=== PATIENT | male | born 1970 | race Caucasian/White ===

== ENCOUNTER 2021-07-12 17:44 | Inpatient (IN) ==
--- NOTE | 2021-07-12 17:50 | Emergency Department Note ---
HPI General Chief complaint: Altered Mental Status Stated complaint: Confusion Time Seen by Provider: 07/12/21 17:50 Source: patient and family Mode of arrival: ambulatory Limitations: altered mental status History of Present Illness HPI Narrative: 51-year-old male with past medical history of hypertension, diabetes on insulin, and CKD on peritoneal dialysis presenting with altered mental status. Patient's partner notes that he has been more lethargic over the past few days and had a few episodes of vomiting. She left for work around 6 AM this morning and patient seemed normal. When she returned home around 3:30 PM he seemed very lethargic and confused. He had left the water running in the sink and was significantly confused. When they attempted to take him to the hospital he was slamming the door against the wall and started sucking on a dry erase marker. Partner notes he has complained of pain when urinating recently. No report of any falls. Not on anticoagulation. Patient is a poor historian and very confused here. He is A&Ox1 but his baseline is A&Ox3. Patient denies any fall, injury, or pain anywhere. He does appear confused. He is not a smoker, denies drinking or drug use. No report of recent fever, cough, shortness of breath, or chest pain. He has chronic bilateral lower extremity edema which is unchanged. Related Data Home Medications Medication Instructions Recorded Confirmed lancets MISCELLANE 04/26/15 10/22/20 insulin lispro 200 unit/mL (3 mL) 30 unit SUB-Q .TID with meals 01/06/21 subcutaneous pen (Humalog KwikPen U-200 Insulin) insulin glargine U-300 conc 300 140 unit SUB-Q QHS ml 04/03/21 unit/mL (3 mL) subcutaneous pen (Toujeo Max U-300 SoloStar) Previous Rx's Medication Instructions Recorded doxazosin 8 mg tablet 8 mg PO QHS #60 tab 09/04/20 amitriptyline 50 mg tablet 50 mg PO QHS #30 tab 10/27/20 gentamicin 0.1 % topical ointment 1 applic TOPICAL QDAY #30 g 11/21/20 aspirin 81 mg tablet,delayed 81 mg PO QDAY #100 tab 04/03/21 release (Adult Low Dose Aspirin) carvedilol 25 mg tablet 25 mg PO QHS #120 tab 04/03/21 furosemide 80 mg tablet 160 mg PO BID #180 tab 04/03/21 tramadol 50 mg tablet 50 mg PO BID PRN #30 tab 04/17/21 ferric citrate 210 mg iron tablet 420 mg PO .COMPLEX #180 tab 06/26/21 (Auryxia) atorvastatin 80 mg tablet 80 mg PO QDAY #90 tab 06/27/21 cinacalcet 60 mg tablet 60 mg PO QDAY #90 tab 07/09/21 Allergies Allergy/AdvReac Type Severity Reaction Status Date / Time No Known Drug Allergies Allergy Verified 10/15/20 23:16 Review of Systems ROS ROS Narrative: Narrative: Limitations: ROS unobtainable due to patients medical condition Constitutional: Denies fever Cardiovascular: Denies chest pain Respiratory: Denies shortness of breath Gastrointestinal: Reports vomiting; Denies abdominal pain Genitourinary: Reports dysuria Neurological: Denies headache PFSH Narrative Patient History Narrative: Narrative: Medical/Surgical/Family History All Active Problems (Updated 07/13/21 @ 00:41 by Marshall Rucker MD) Edema (Chronic) Diabetes mellitus, type II (Chronic) Essential hypertension, benign (Chronic) Mixed hyperlipidemia (Chronic) CKD (chronic kidney disease), stage IV (Chronic) Hypertensive renal disease (Chronic) Hyperparathyroidism due to renal insufficiency (Chronic) Proteinuria (Chronic) Gout due to renal impairment (Chronic) Anemia due to stage 4 chronic kidney disease (Chronic) CKD stage G5/A3, GFR <15 and albumin creatinine ratio >300 mg/g (Chronic) CKD (chronic kidney disease) stage 5, GFR less than 15 ml/min (Chronic) Accelerated hypertension (Chronic) Nephrotic range proteinuria (Chronic) Anemia due to stage 5 chronic kidney disease treated with darbepoetin (Chronic) Iron deficiency anemia due to chronic blood loss (Acute) ESRD on peritoneal dialysis (Acute) Diabetic peripheral neuropathy (Acute) Peritonitis associated with peritoneal dialysis (Acute) Peritonitis, spontaneous bacterial (Acute) Uncontrolled diabetes mellitus with ESRD (end-stage renal disease) (Acute) Hypoglycemia unawareness associated with type 2 diabetes mellitus (Acute) Leg pain (Acute) Hyperglycemia (Acute) Altered mental status (Acute) Medical History Accelerated hypertension Refractory to beta-blockers high-dose ARB, high-dose alpha-1 antagonist and loop diuretic Did respond to minoxidil but developed side effects and doses above 5 mg twice daily Anemia due to stage 4 chronic kidney disease HgB 8-9 gm/dl so monitoring, low Fe so increased Fe replacement to 65 mg BID BP too high for SANTOS CKD (chronic kidney disease) stage 5, GFR less than 15 ml/min With nephrotic range proteinuria in the setting of diabetes and accelerated hypertension CKD (chronic kidney disease), stage IV DM +/- HTN with nonnephrotic proteinuria CKD stage G5/A3, GFR <15 and albumin creatinine ratio >300 mg/g Seems to be primarily diabetic nephropathy with hypertensive renal disease Decreased proteinuria to <3 gm/day but too little, to late Chose PD so will arrange PD catheter and training to follow Diabetes mellitus, type II Urine Prot/Cr 1.5 but GFR makes ARB therapy controversial Hemoglobin A1c 7.5% in January 2019 Edema Essential hypertension, benign Avoiding ACEi and ARB due to GFR Gout due to renal impairment Uric acid elevated on 150 mg/day allopurinol. GFR <20, lasix and metolizone likely cause Hyperparathyroidism due to renal insufficiency PTH 150-300 range Hypertensive renal disease Goal blood pressure is 140/90 Valsartan, Minoxidil, carvedilol, doxazosin, furosemide and prn metolazone Mixed hyperlipidemia Nephrotic range proteinuria This is gone up from 1.5 g to 4 g per 24 hours in the setting of uncontrolled hypertension He is on maximal dose losartan Proteinuria This is evidence of diabetic nephropathy Surgical History History of umbilical hernia repair (10/13/19) with mesh and laparoscopic PD catheter placement. Family History Mother Malignant neoplasm Father Coronary artery disease Diabetes mellitus Hypertension Sister Diabetes mellitus Social History Smoking Status: Never smoker Alcohol Intake Frequency: holiday/special occasion only Substance Use: does not use Exam Narrative Narrative: Narrative: General Limitations: altered mental status General appearance: Present alert and in no apparent distress Head Head: Present atraumatic and normocephalic Eye Eye: Present normal appearance, PERRL, EOMI and visual tirado intact; Absent scleral icterus, conjunctival injection or nystagmus ENT ENT: Present normal oropharynx and mucous membranes moist Neck Neck: Present normal inspection, full ROM and trachea midline; Absent meningis mus or lymphadenopathy Chest Chest: Present symmetric chest wall rise Respiratory Respiratory: Present normal lung sounds bilaterally; Absent respiratory distress, wheezes, stridor, accessory muscle use or prolonged expiratory phase Cardiovascular Cardiovascular: Present regular rate and normal rhythm; Absent systolic murmur or diastolic murmur Adbominal Abdominal: Present soft; Absent distention, tenderness, guarding, rebound, rigidity, organomegaly or mass Extremities Extremities: Present normal inspection, full ROM and other (1+ bilateral lower e xtremity edema (chronic); no erythema or warmth) Back Back: Present normal inspection; Absent CVA tenderness (R), CVA tenderness (L) or spinous process tenderness Neurological Neurological: Present alert, CN II-XII intact and other (Oriented x1; unable to follow commands to perform [id number] or [id number] testing); Absent motor sensory deficit Expanded Neurological Patient oriented to: Present person; Absent place or time Speech: Present fluid speech; Absent receptive aphasia, expressive aphasia or dysarthria CRANIAL NERVES: EOM function (II, III, IV, ): Normal, facial sensation (V): Normal, facial palsy (VII): Normal, gag reflex (IX): Normal, spinal accessory function (XI): Normal and tongue deviation (XII): Normal Motor strength - LUE: 5/5 Motor strength - RUE: 5/5 Motor strength - LLE: 5/5 Motor strength - RLE: 5/5 UPPER MOTOR NEURON EXAM: remington neglect: Normal and pronator drift: Normal SENSORY EXAM UPPER EXTREMITY: Normal: light touch SENSORY EXAM LOWER EXTREMITY: Normal: light touch Coma Scale Eye Opening: Spontaneous Coma Scale Motor Response: Obeys Commands Coma Scale Verbal Response: Confused Coma Scale Total: 14 Psychiatric Psychiatric: Present other (Confused but redirectable, pleasant) Skin Skin: Present warm (WNL) and dry Course Consultations Consultation #1: Dr. Chapman, hospitalist Time: 00:39 Vital Signs Vital signs: Vital Signs Temperature 98.1 F 07/12/21 17:45 Pulse Rate 93 H 07/12/21 17:45 Respiratory Rate 17 07/12/21 17:45 Blood Pressure 210/104 07/12/21 17:45 Pulse Oximetry (%) 96 07/12/21 17:45 Temperature 97 F 07/13/21 02:42 Pulse Rate 57 L 07/13/21 02:42 Respiratory Rate 20 07/13/21 02:42 Blood Pressure 164/94 07/13/21 02:42 Pulse Oximetry (%) 94 07/13/21 02:43 MDM MDM Narrative Medical decision making narrative: 51-year-old male presenting with altered mental status. No focal neurologic deficits noted on exam however patient is too confused to complete all portions of the neurologic exam. He is hypertensive on initial evaluation. He is outside the window for acute CVA treatment initiation. Will obtain labs, CT brain, chest x-ray, UA, and UDS to further evaluate. 0130: Labs notable for hyperglycemia to 882 with a slightly elevated anion gap however his pH and lactate are normal. Insulin bolus given and insulin drip started. Normal saline bolus given. Beta hydroxybutyrate is mildly elevated at 0.49. Creatinine is 9.4. TSH, ammonia, and alcohol levels are normal. CT brain shows evidence of old infarcts but no acute infarcts or hemorrhage. Chest x-ray with no acute findings. UA may be consistent with infection, blood cultures ordered and IV Rocephin given. Patient remained confused and agitated in the ED, requiring IM Haldol, IV Ativan, and IM Zyprexa in order to calm him enough for imaging studies. He was also hypertensive and tachycardic, IV and p.o. Lopressor given with improvement. Will admit for hyperglycemia, altered mental status, and UTI. Peritoneal fluid Gram stain, culture, and cell count ordered. Patient discussed with Dr. Chapman who will admit. Lab Data Lab results reviewed: Yes I reviewed the patient's lab results. Result diagrams: 07/12/21 17:52 07/12/21 17:52 Labs: Lab Results 07/12/21 07/12/21 07/12/21 Range/Units 17:52 17:52 17:52 WBC 6.3 (4.5-11.0) K/mcL RBC 3.13 L (4.63-6.08) M/mcL Hgb 9.6 L (13.7-17.5) g/dL Hct 28.8 L (40.1-51.0) % MCV 92.0 (80.0-100.0) fL MCH 30.7 (26.0-34.0) pg MCHC 33.3 (31.0-36.0) g/dL RDW 13.3 (11.5-14.5) % Plt Count 187 (140-440) K/mcL MPV 10.6 H (7.4-10.4) fL Neut % (Auto) 72.9 (38.0-78.0) % Lymph % (Auto) 15.9 (15.5-49.0) % [place] % (Auto) 6.0 (1.0-12.0) % Eos % (Auto) 4.1 (0.0-7.0) % Baso % (Auto) 1.1 (0.0-2.0) % Lymph # (Auto) 1.00 L (1.50-4.80) K/mcL [place] # (Auto) 0.38 (0.10-0.90) K/mcL Eos # (Auto) 0.26 (0.00-0.70) K/mcL Baso # (Auto) 0.07 (0.00-0.30) K/mcL Absolute Neutrophils 4.59 (1.80-8.00) K/mcL Sodium 125 L (133-145) mmol/L Potassium 4.1 (3.3-5.1) mmol/L Chloride 85 L (96-108) mmol/L Carbon Dioxide 23 (22-30) mmol/L Anion Gap 17.0 H (8.0-16.0) BUN 73 H (6-20) mg/dL Creatinine 9.4 H* (0.7-1.2) mg/dL GFR Calculation 6 Glucose 882 H* (70-105) mg/dL Calcium 8.7 (8.6-10.4) mg/dL Magnesium (1.6-2.5) mg/dL Total Bilirubin 0.2 (0.1-1.0) mg/dL AST 13 (<40) U/L ALT 18 (<40) U/L Alkaline Phosphatase 134 H (39-117) U/L Ammonia (16-60) umol/L Total Protein 6.5 (5.9-8.4) gm/dL Albumin 3.2 (3.2-5.2) gm/dL Globulin 3.3 (2.2-3.7) gm/dL Albumin/Globulin Ratio 1.0 (1.0-2.3) Lipase 145 H (7-60) U/L Beta-Hydroxybutyrate 0.49 H (<0.27) mmol/L TSH (0.27-5.01) uIU/mL Urine Color Urine Appearance (Clear) Urine pH (5.0-9.0) Ur Specific [place] (1.000-1.035) Urine Protein (Negative) mg/dL Urine Glucose (UA) (Negative) mg/dL Urine Ketones (Negative) mg/dL Urine Occult Blood (Negative) arslan/mcL Urine Nitrate (Negative) Urine Bilirubin (Negative) mg/dL Urine Urobilinogen mg/dL Ur Leukocyte Esterase (Negative) /uL Urine RBC (0-3) /hpf Urine WBC (0-4) /hpf Ur Squamous Epith Cells (0-4) /hpf Urine Bacteria (0) /hpf Hyaline Casts (0-2) /lph Ur Culture Indicated? Urine Opiates Screen Ur Opiates Confirm Ur Oxycodone Screen Urine Methadone Screen Ur Methadone Confirm Ur Barbiturates Screen Ur Barbiturate Confirm Ur Phencyclidine Scrn Urine PCP Confirm Ur Amphetamines Screen U Amphetamines Confirm U Benzodiazepines Scrn U Benzodiazepine Confm Urine Cocaine Screen Urine Cocaine Confirm U Cannabinoids Confirm U Marijuana (THC) Screen Ethyl Alcohol < 0.010 (<0.010) gm/dL 07/12/21 07/12/21 07/12/21 Range/Units 17:52 17:52 19:19 WBC (4.5-11.0) K/mcL RBC (4.63-6.08) M/mcL Hgb (13.7-17.5) g/dL Hct (40.1-51.0) % MCV (80.0-100.0) fL MCH (26.0-34.0) pg MCHC (31.0-36.0) g/dL RDW (11.5-14.5) % Plt Count (140-440) K/mcL MPV (7.4-10.4) fL Neut % (Auto) (38.0-78.0) % Lymph % (Auto) (15.5-49.0) % [place] % (Auto) (1.0-12.0) % Eos % (Auto) (0.0-7.0) % Baso % (Auto) (0.0-2.0) % Lymph # (Auto) (1.50-4.80) K/mcL [place] # (Auto) (0.10-0.90) K/mcL Eos # (Auto) (0.00-0.70) K/mcL Baso # (Auto) (0.00-0.30) K/mcL Absolute Neutrophils (1.80-8.00) K/mcL Sodium (133-145) mmol/L Potassium (3.3-5.1) mmol/L Chloride (96-108) mmol/L Carbon Dioxide (22-30) mmol/L Anion Gap (8.0-16.0) BUN (6-20) mg/dL Creatinine (0.7-1.2) mg/dL GFR Calculation Glucose (70-105) mg/dL Calcium (8.6-10.4) mg/dL Magnesium 2.5 (1.6-2.5) mg/dL Total Bilirubin (0.1-1.0) mg/dL AST (<40) U/L ALT (<40) U/L Alkaline Phosphatase (39-117) U/L Ammonia 20 (16-60) umol/L Total Protein (5.9-8.4) gm/dL Albumin (3.2-5.2) gm/dL Globulin (2.2-3.7) gm/dL Albumin/Globulin Ratio (1.0-2.3) Lipase (7-60) U/L Beta-Hydroxybutyrate (<0.27) mmol/L TSH 3.56 (0.27-5.01) uIU/mL Urine Color Urine Appearance (Clear) Urine pH (5.0-9.0) Ur Specific [place] (1.000-1.035) Urine Protein (Negative) mg/dL Urine Glucose (UA) (Negative) mg/dL Urine Ketones (Negative) mg/dL Urine Occult Blood (Negative) arslan/mcL Urine Nitrate (Negative) Urine Bilirubin (Negative) mg/dL Urine Urobilinogen mg/dL Ur Leukocyte Esterase (Negative) /uL Urine RBC (0-3) /hpf Urine WBC (0-4) /hpf Ur Squamous Epith Cells (0-4) /hpf Urine Bacteria (0) /hpf Hyaline Casts (0-2) /lph Ur Culture Indicated? Urine Opiates Screen Ur Opiates Confirm Ur Oxycodone Screen Urine Methadone Screen Ur Methadone Confirm Ur Barbiturates Screen Ur Barbiturate Confirm Ur Phencyclidine Scrn Urine PCP Confirm Ur Amphetamines Screen U Amphetamines Confirm U Benzodiazepines Scrn U Benzodiazepine Confm Urine Cocaine Screen Urine Cocaine Confirm U Cannabinoids Confirm U Marijuana (THC) Screen Ethyl Alcohol (<0.010) gm/dL 07/12/21 07/12/21 Range/Units 20:58 20:58 WBC (4.5-11.0) K/mcL RBC (4.63-6.08) M/mcL Hgb (13.7-17.5) g/dL Hct (40.1-51.0) % MCV (80.0-100.0) fL MCH (26.0-34.0) pg MCHC (31.0-36.0) g/dL RDW (11.5-14.5) % Plt Count (140-440) K/mcL MPV (7.4-10.4) fL Neut % (Auto) (38.0-78.0) % Lymph % (Auto) (15.5-49.0) % [place] % (Auto) (1.0-12.0) % Eos % (Auto) (0.0-7.0) % Baso % (Auto) (0.0-2.0) % Lymph # (Auto) (1.50-4.80) K/mcL [place] # (Auto) (0.10-0.90) K/mcL Eos # (Auto) (0.00-0.70) K/mcL Baso # (Auto) (0.00-0.30) K/mcL Absolute Neutrophils (1.80-8.00) K/mcL Sodium (133-145) mmol/L Potassium (3.3-5.1) mmol/L Chloride (96-108) mmol/L Carbon Dioxide (22-30) mmol/L Anion Gap (8.0-16.0) BUN (6-20) mg/dL Creatinine (0.7-1.2) mg/dL GFR Calculation Glucose (70-105) mg/dL Calcium (8.6-10.4) mg/dL Magnesium (1.6-2.5) mg/dL Total Bilirubin (0.1-1.0) mg/dL AST (<40) U/L ALT (<40) U/L Alkaline Phosphatase (39-117) U/L Ammonia (16-60) umol/L Total Protein (5.9-8.4) gm/dL Albumin (3.2-5.2) gm/dL Globulin (2.2-3.7) gm/dL Albumin/Globulin Ratio (1.0-2.3) Lipase (7-60) U/L Beta-Hydroxybutyrate (<0.27) mmol/L TSH (0.27-5.01) uIU/mL Urine Color Yellow Urine Appearance Clear (Clear) Urine pH 6.5 (5.0-9.0) Ur Specific [place] 1.015 (1.000-1.035) Urine Protein >=300 mg/dl A (Negative) mg/dL Urine Glucose (UA) 500 mg/dl A (Negative) mg/dL Urine Ketones Negative (Negative) mg/dL Urine Occult Blood Moderate A (Negative) arslan/mcL Urine Nitrate Negative (Negative) Urine Bilirubin Negative (Negative) mg/dL Urine Urobilinogen Normal mg/dL Ur Leukocyte Esterase Negative (Negative) /uL Urine RBC 2 (0-3) /hpf Urine WBC 3 (0-4) /hpf Ur Squamous Epith Cells 1 (0-4) /hpf Urine Bacteria Few A (0) /hpf Hyaline Casts 9 H (0-2) /lph Ur Culture Indicated? Yes Urine Opiates Screen None detected Ur Opiates Confirm TNP Ur Oxycodone Screen None detected Urine Methadone Screen None detected Ur Methadone Confirm TNP Ur Barbiturates Screen None detected Ur Barbiturate Confirm TNP Ur Phencyclidine Scrn None detected Urine PCP Confirm TNP Ur Amphetamines Screen None detected U Amphetamines Confirm TNP U Benzodiazepines Scrn None detected U Benzodiazepine Confm TNP Urine Cocaine Screen None detected Urine Cocaine Confirm TNP U Cannabinoids Confirm TNP U Marijuana (THC) Screen None detected Ethyl Alcohol (<0.010) gm/dL Radiology Data Radiology results reviewed: Yes I reviewed the patient's radiology results. Radiology results narrative: CT brain without contrast: No acute hemorrhage or ischemia. Small chronic CVAs noted, per outside radiology read. Chest x-ray: No acute abnormality, per my interpretation. EKG Data EKG #1: EKG attestation: Yes I reviewed and interpreted this EKG. and Yes There are no EKG findings of acute coronary syndrome EKG results narrative: Sinus tachycardia at [address] elevation or depression. QT is mildly prolonged. Interpretation: no acute changes Discharge Plan Patient/Caregiver Discharge Instructions Pt seen by [facility]ER/PA only: No Clinical Impression: Hyperglycemia, Altered mental status Patient Disposition: Xfer As Inpt ([facility]) Condition: Fair Discharge Date/Time: 07/13/21 02:32
[2021-07-12] MEDS ORDERED: 0.9 % SODIUM CHLORIDE 1,000 ML IV ONE (19:01)
[2021-07-12 19:12] LABS: Basophils # (Auto) 0.07 K/mcL (0.00-0.30); Basophils % (Auto) 1.1 % (0.0-2.0); Eosinophils # (Auto) 0.26 K/mcL (0.00-0.70); Eosinophils % (Auto) 4.1 % (0.0-7.0); Hematocrit 28.8 % (40.1-51.0); Hemoglobin 9.6 g/dL (13.7-17.5); Lymphocytes % (Auto) 15.9 % (15.5-49.0); Mean Corpuscular HGB Conc 33.3 g/dL (31.0-36.0); Mean Platelet Volume 10.6 fL (7.4-10.4); Monocytes # (Auto) 0.38 K/mcL (0.10-0.90); Neutrophils % (Auto) 72.9 % (38.0-78.0); Platelet Count 187 K/mcL (140-440); RBC 3.13 M/mcL (4.63-6.08); Red Cell Distribution Width 13.3 % (11.5-14.5); WBC 6.3 K/mcL (4.5-11.0)
[2021-07-12] MEDS ORDERED: HALOPERIDOL LACTATE 5 MG/ML VIAL IM ONE ×2 (19:32→21:08)
[2021-07-12 19:38] LABS: Beta Hydroxybutyrate 0.49 mmol/L (<0.27)
[2021-07-12 19:55] LABS: ALT/SGPT 18 U/L (<40); AST/SGOT 13 U/L (<40); Albumin 3.2 gm/dL (3.2-5.2); Alkaline Phosphatase 134 U/L (39-117); Bilirubin,Total 0.2 mg/dL (0.1-1.0); Blood Urea Nitrogen 73 mg/dL (6-20); Calcium 8.7 mg/dL (8.6-10.4); Carbon Dioxide 23 mmol/L (22-30); Chloride 85 mmol/L (96-108); Globulin 3.3 gm/dL (2.2-3.7); Glomerular Filtration Rate 6; Glucose 882 mg/dL (70-105)
[2021-07-12 19:56] LABS: Alcohol, Blood < 10.0 mg/dL; Alcohol,Blood < 0.010 gm/dL (<0.010)
[2021-07-12] MEDS ORDERED: INSULIN REGULAR, HUMAN 1 UNIT/0.01 ML UNIT IV ONE (20:07)
[2021-07-12] MEDS ORDERED: INSULIN REGULAR, HUMAN 50 UNIT in 0.9 % SODIUM CHLORIDE 99.5 ML IV SCH (20:15)
[2021-07-12] MEDS ORDERED: LORazepam 2 MG/ML VIAL IV ONE ×2 (20:22→20:46)
[2021-07-12] MEDS ORDERED: INSULIN REGULAR, HUMAN 50 UNIT in 0.9 % SODIUM CHLORIDE 99.5 ML IV ONE (20:34)
[2021-07-12] MEDS ORDERED: OLANZapine 10 MG VIAL IM SCH (22:00)
[2021-07-12 22:15] LABS: Appearance,Urine Clear (Clear); Bacteria,Urine FEW /hpf (0); Bilirubin,Urine Negative (Negative); Color,Urine Yellow; Culture Indicated,Urine Yes; Ketones,Urine Negative (Negative); Leukocyte Esterase,Urine Negative /uL (Negative); Nitrate,Urine Negative (Negative); PH,Urine 6.5 (5.0-9.0); Protein,Urine >=300 mg/dL mg/dL (Negative); Specific Gravity,Urine 1.015 (1.000-1.035); Urine Blood Moderate ery/mcL (Negative); Urine Hyaline Cast 9 /lph (0-2); Urine RBC 2 /hpf (0-3); Urine Squamous Epithelial Cell 1 /hpf (0-4); Urine WBC 3 /hpf (0-4); Urobilinogen,Urine Normal
[2021-07-12 22:17] LABS: Amphetamine Screen,Urine None detected; Barbiturate Screen,Urine None detected; Benzodiazepines Screen,Urine None detected; Cannabinoid Screen,Urine None detected; Cocaine Screen,Urine None detected; Opiate Screen,Urine None detected; Oxycodone, Urine Screen None detected; Phencyclidine Screen,Urine None detected
[2021-07-12] MEDS ORDERED: cefTRIAXone 1 GM VIAL IV ONE (22:59)
[2021-07-12] MEDS ORDERED: METOPROLOL TARTRATE 5 MG/5 ML VIAL IV ONE (23:34)
[2021-07-13] MEDS ORDERED: ONDANSETRON 4 MG/2 ML VIAL IV PRN ×2 (01:48→06:55)
[2021-07-13] MEDS ORDERED: cefTRIAXone 2 GM in DEXTROSE 5% IN WATER 50 ML IV SCH (02:00)
--- NOTE | 2021-07-13 05:08 | XRay Report ---
CLINICAL INFORMATION: Acute mental status change COMPARISON: None. TECHNIQUE: PA and Lateral views FINDINGS: Poor inspiratory result accentuates the heart, mediastinum and pulmonary vasculature. The lungs are clear. There are no effusions. The bones and soft tissues are within normal limits. IMPRESSION: Normal chest. Suboptimal inspiratory result Interpreted and Authenticated by: Tejinder Ruiz 07/13/21
--- NOTE | 2021-07-13 05:19 | Cat Scan Report ---
CLINICAL INFORMATION: History dialysis for chronic renal failure. Acute mental status change COMPARISON: None. TECHNIQUE: 2.5 mm helical slices were obtained in the skull base to vertex. Following reconstruction, axial reformatted images were reviewed at bone and parenchymal windows. The exam was performed using radiation dose optimization techniques including, but not limited to, automated exposure control, adjustment of the mA and/or kV according to patient size and use of iterative reconstruction technique. FINDINGS: The ventricles, sulci, fissures, and cisterns are symmetrically enlarged compatible with moderate age-related atrophy. No extra-axial fluid collections are identified. Moderate patchy chronic ischemic changes, in the deep cerebral white matter, are expected for age. Multiple chronic infarcts are described in the impression. There is no hemorrhage, mass effect, or edema. Bone windows show fluid within all of the right mastoid air cells with sclerotic thickening of the bones about chronic right mastoiditis. IMPRESSION: Moderate atrophy and chronic ischemic changes in the deep cerebral white matter-much greater than expected for patient's age of 51. Two moderate old cortical-based infarcts in the left frontal lobe near vertex, small remote cortical-based infarct right frontal lobe near vertex, moderate old cortical based infarct inferior left frontal lobe, small old cortical-based infarct left anterior temporal lobe 10 mm remote lacunar infarct deep right frontal white matter, 5 mm old lacunar infarct left lentiform nucleus and moderate old infarct inferior left cerebellum. No intracerebral hemorrhage or other acute finding Chronic right mastoiditis Suggest: CT cervical carotid arteriogram and CT cerebral angiogram Interpreted and Authenticated by: Tejinder Ruiz 07/13/21
[2021-07-13] MEDS ORDERED: 0.9 % SODIUM CHLORIDE 10 ML SYRINGE IV SCH (06:00)
[2021-07-13] MEDS ORDERED: traMADol (PP) 50 MG TABLET (#4) PO PRN (06:39)
[2021-07-13] MEDS ORDERED: IPRATROPIUM/ALBUTEROL 3 ML AMPUL.NEB NEB PRN (06:55)
[2021-07-13] MEDS ORDERED: DEXTROSE 50% 50 ML VIAL IV PRN (06:55)
[2021-07-13] MEDS ORDERED: DEXTROSE 31 GM ORAL.SUSP PO PRN (06:55)
[2021-07-13] MEDS ORDERED: ACETAMINOPHEN 325 MG TABLET PO PRN (06:55)
[2021-07-13] MEDS ORDERED: OLANZapine 5 MG TABLET PO ONE (07:01)
[2021-07-13] MEDS ORDERED: LORazepam 2 MG/ML VIAL IV PRN (07:01)
--- NOTE | 2021-07-13 07:06 | Internal Med History&Physical ---
HPI History of Present Illness Patient information: Note initiated : 07/13/21 at 7:03 am Service Date, if different from initiated Date: [] Patient: Herman Hall a 51 y/o M admitted on 07/13/21 for Confusion. Chief Complaint: [confusion] Chief complaint: confusion History of present illness: Mr. Hall is a 51 year old M history of end-stage renal disease on peritoneal dialysis, type 2 diabetes mellitus insulin-dependent, essential hypertension's, mixed dyslipidemia, presenting with 1 day history of acute onset confusions. There was no prior similar episode. The following history is limited by patient's clinical situations and most of it is obtained from at the bedside. Patient was in his usual clinical status test until yesterday when his came home from work found out he was confused, lethargic, not acting like himself, the house is in chaos, and barely answer any questions. There was no prior similar episode according to the . Vital signs at ED presentation significant for tachycardia and tachypnea with heart rate and rate of breathing in the 1 teens and mid 20s, respectively. Labs significant for lack of leukocytosis with WBC 6.3. Blood glucose 882, anion gap was 17, serum bicarb of 23 so it does not fit the diabetic ketoacidosis or HHS criteria. Negative nitrate negative leukocyte esterase from the urinalysis. Chest x-ray unremarkable. Head CT no sign of acute intracranial pathologies. Current working diagnosis is a spontaneous bacterial peritonitis. Insulin drip was briefly provided in the ED which was started after repeat blood sugar check in the 200s range. Review of Systems ROS unobtainable: due to mental status PFSH PFSH All Active Problems (Updated 07/13/21 @ 07:14 by Rigo Chapman MD) SBP (spontaneous bacterial peritonitis) (Acute) Delirium (Acute) Mixed dyslipidemia (Acute) Anemia in end-stage renal disease (Acute) Obesity (BMI 30-39.9) (Acute) Hypertension due to end stage renal disease on dialysis (Acute) Type 2 diabetes mellitus with end-stage renal disease (Acute) Edema (Chronic) Diabetes mellitus, type II (Chronic) Essential hypertension, benign (Chronic) Mixed hyperlipidemia (Chronic) CKD (chronic kidney disease), stage IV (Chronic) Hypertensive renal disease (Chronic) Hyperparathyroidism due to renal insufficiency (Chronic) Proteinuria (Chronic) Gout due to renal impairment (Chronic) Anemia due to stage 4 chronic kidney disease (Chronic) CKD stage G5/A3, GFR <15 and albumin creatinine ratio >300 mg/g (Chronic) CKD (chronic kidney disease) stage 5, GFR less than 15 ml/min (Chronic) Accelerated hypertension (Chronic) Nephrotic range proteinuria (Chronic) Anemia due to stage 5 chronic kidney disease treated with darbepoetin (Chronic) Iron deficiency anemia due to chronic blood loss (Acute) ESRD on peritoneal dialysis (Acute) Diabetic peripheral neuropathy (Acute) Peritonitis associated with peritoneal dialysis (Acute) Peritonitis, spontaneous bacterial (Acute) Uncontrolled diabetes mellitus with ESRD (end-stage renal disease) (Acute) Hypoglycemia unawareness associated with type 2 diabetes mellitus (Acute) Leg pain (Acute) Hyperglycemia (Acute) Altered mental status (Acute) Medical History Accelerated hypertension Refractory to beta-blockers high-dose ARB, high-dose alpha-1 antagonist and loop diuretic Did respond to minoxidil but developed side effects and doses above 5 mg twice daily Anemia due to stage 4 chronic kidney disease HgB 8-9 gm/dl so monitoring, low Fe so increased Fe replacement to 65 mg BID BP too high for SANTOS CKD (chronic kidney disease) stage 5, GFR less than 15 ml/min With nephrotic range proteinuria in the setting of diabetes and accelerated hypertension CKD (chronic kidney disease), stage IV DM +/- HTN with nonnephrotic proteinuria CKD stage G5/A3, GFR <15 and albumin creatinine ratio >300 mg/g Seems to be primarily diabetic nephropathy with hypertensive renal disease Decreased proteinuria to <3 gm/day but too little, to late Chose PD so will arrange PD catheter and training to follow Diabetes mellitus, type II Urine Prot/Cr 1.5 but GFR makes ARB therapy controversial Hemoglobin A1c 7.5% in January 2019 Edema Essential hypertension, benign Avoiding ACEi and ARB due to GFR Gout due to renal impairment Uric acid elevated on 150 mg/day allopurinol. GFR <20, lasix and metolizone likely cause Hyperparathyroidism due to renal insufficiency PTH 150-300 range Hypertensive renal disease Goal blood pressure is 140/90 Valsartan, Minoxidil, carvedilol, doxazosin, furosemide and prn metolazone Mixed hyperlipidemia Nephrotic range proteinuria This is gone up from 1.5 g to 4 g per 24 hours in the setting of uncontrolled hypertension He is on maximal dose losartan Proteinuria This is evidence of diabetic nephropathy Surgical History History of umbilical hernia repair (10/13/19) with mesh and laparoscopic PD catheter placement. Family History Mother Malignant neoplasm Father Coronary artery disease Diabetes mellitus Hypertension Sister Diabetes mellitus Social History (Updated 09/28/19 @ 12:39 by Coleman Butts MD) marital status: occupational status: employed physical activity: none alcohol intake frequency: holiday/special occasion only substance use type: does not use MEDS/ALLERGIES Home Medications and Allergies Home Medications Medication Instructions Recorded Confirmed Type lancets MISCELLANE 04/26/15 10/22/20 History doxazosin 8 mg tablet 8 mg PO QHS #60 tab 09/04/20 10/22/20 Rx amitriptyline 50 mg tablet 50 mg PO QHS #30 tab 10/27/20 Rx gentamicin 0.1 % topical ointment 1 applic TOPICAL QDAY #30 g 11/21/20 Rx insulin lispro 200 unit/mL (3 mL) 30 unit SUB-Q .TID with meals 01/06/21 History subcutaneous pen (Humalog KwikPen U-200 Insulin) aspirin 81 mg tablet,delayed 81 mg PO QDAY #100 tab 04/03/21 Rx release (Adult Low Dose Aspirin) carvedilol 25 mg tablet 25 mg PO QHS #120 tab 04/03/21 Rx furosemide 80 mg tablet 160 mg PO BID #180 tab 04/03/21 Rx insulin glargine U-300 conc 300 140 unit SUB-Q QHS ml 04/03/21 History unit/mL (3 mL) subcutaneous pen (Toujeo Max U-300 SoloStar) tramadol 50 mg tablet 50 mg PO BID PRN #30 tab 04/17/21 Rx ferric citrate 210 mg iron tablet 420 mg PO .COMPLEX #180 tab 06/26/21 Rx (Auryxia) atorvastatin 80 mg tablet 80 mg PO QDAY #90 tab 06/27/21 Rx cinacalcet 60 mg tablet 60 mg PO QDAY #90 tab 07/09/21 07/09/21 Rx Allergies Allergy/AdvReac Type Severity Reaction Status Date / Time No Known Drug Allergies Allergy Verified 10/15/20 23:16 EXAM Constitutional Vitals: Temp Pulse Resp BP Pulse Ox 36.1 C 113 H 24 H 185/94 96 07/13/21 04:00 07/13/21 04:00 07/13/21 04:00 07/13/21 04:00 07/13/21 04:00 General appearance: disheveled, no acute distress and obese; no cooperative Head Head exam: Present atraumatic and normocephalic Eye Eye exam: Present EOMI and PERRL ENT ENT exam: Present mucous membranes moist, normal exam and normal external ear exam Neck Neck exam: Present normal inspection; Absent lymphadenopathy, tenderness or thyromegaly Respiratory Respiratory exam: Absent accessory muscle use, respiratory distress or wheezes Cardiovascular Cardiovascular exam: Present normal rate and rhythm; Absent JVD GI/Abdominal GI/Abdominal exam: Present normal bowel sounds, soft and distended; Absent organomegaly or tenderness Additional comments: fluid wave no tenderness to palpation PD access in place Rectal Rectal exam: Present deferred Extremities Exam Extremities exam: Present full ROM, normal capillary refill and normal inspection; Absent tenderness Neurological Exam Neurological exam: Present alert, altered and CN II-XII intact; Absent motor sensory deficit or oriented X3 Additional comments: orientation X1 to person only Psychiatric Psychiatric exam: Present normal affect and normal mood; Absent anxious or depressed Skin Skin exam: Present dry and intact DATA Data Completed and Pending Labs: Labs from last 24 hours 07/12/21 07/12/21 07/12/21 20:58 20:58 19:19 WBC RBC Hgb Hct MCV MCH MCHC RDW Plt Count MPV Neut % (Auto) Lymph % (Auto) Curry % (Auto) Eos % (Auto) Baso % (Auto) Lymph # (Auto) Curry # (Auto) Eos # (Auto) Baso # (Auto) Absolute Neutrophils Sodium Potassium Chloride Carbon Dioxide Anion Gap BUN Creatinine GFR Calculation Glucose Calcium Magnesium Total Bilirubin AST ALT Alkaline Phosphatase Ammonia 20 Total Protein Albumin Globulin Albumin/Globulin Ratio Lipase Beta-Hydroxybutyrate TSH Urine Color Yellow Urine Appearance Clear Urine pH 6.5 Ur Specific [place] 1.015 Urine Protein >=300 mg/dl A Urine Glucose (UA) 500 mg/dl A Urine Ketones Negative Urine Occult Blood Moderate A Urine Nitrate Negative Urine Bilirubin Negative Urine Urobilinogen Normal Ur Leukocyte Esterase Negative Urine RBC 2 Urine WBC 3 Ur Squamous Epith Cells 1 Urine Bacteria Few A Hyaline Casts 9 H Ur Culture Indicated? Yes Urine Opiates Screen None detected Ur Opiates Confirm TNP Ur Oxycodone Screen None detected Urine Methadone Screen None detected Ur Methadone Confirm TNP Ur Barbiturates Screen None detected Ur Barbiturate Confirm TNP Ur Phencyclidine Scrn None detected Urine PCP Confirm TNP Ur Amphetamines Screen None detected U Amphetamines Confirm TNP U Benzodiazepines Scrn None detected U Benzodiazepine Confm TNP Urine Cocaine Screen None detected Urine Cocaine Confirm TNP U Cannabinoids Confirm TNP U Marijuana (THC) Screen None detected Ethyl Alcohol 07/12/21 07/12/21 07/12/21 17:52 17:52 17:52 WBC RBC Hgb Hct MCV MCH MCHC RDW Plt Count MPV Neut % (Auto) Lymph % (Auto) Curry % (Auto) Eos % (Auto) Baso % (Auto) Lymph # (Auto) Curry # (Auto) Eos # (Auto) Baso # (Auto) Absolute Neutrophils Sodium Potassium Chloride Carbon Dioxide Anion Gap BUN Creatinine GFR Calculation Glucose Calcium Magnesium 2.5 Total Bilirubin AST ALT Alkaline Phosphatase Ammonia Total Protein Albumin Globulin Albumin/Globulin Ratio Lipase Beta-Hydroxybutyrate TSH 3.56 Urine Color Urine Appearance Urine pH Ur Specific [place] Urine Protein Urine Glucose (UA) Urine Ketones Urine Occult Blood Urine Nitrate Urine Bilirubin Urine Urobilinogen Ur Leukocyte Esterase Urine RBC Urine WBC Ur Squamous Epith Cells Urine Bacteria Hyaline Casts Ur Culture Indicated? Urine Opiates Screen Ur Opiates Confirm Ur Oxycodone Screen Urine Methadone Screen Ur Methadone Confirm Ur Barbiturates Screen Ur Barbiturate Confirm Ur Phencyclidine Scrn Urine PCP Confirm Ur Amphetamines Screen U Amphetamines Confirm U Benzodiazepines Scrn U Benzodiazepine Confm Urine Cocaine Screen Urine Cocaine Confirm U Cannabinoids Confirm U Marijuana (THC) Screen Ethyl Alcohol < 0.010 07/12/21 07/12/21 17:52 17:52 WBC 6.3 RBC 3.13 L Hgb 9.6 L Hct 28.8 L MCV 92.0 MCH 30.7 MCHC 33.3 RDW 13.3 Plt Count 187 MPV 10.6 H Neut % (Auto) 72.9 Lymph % (Auto) 15.9 Curry % (Auto) 6.0 Eos % (Auto) 4.1 Baso % (Auto) 1.1 Lymph # (Auto) 1.00 L Curry # (Auto) 0.38 Eos # (Auto) 0.26 Baso # (Auto) 0.07 Absolute Neutrophils 4.59 Sodium 125 L Potassium 4.1 Chloride 85 L Carbon Dioxide 23 Anion Gap 17.0 H BUN 73 H Creatinine 9.4 H* GFR Calculation 6 Glucose 882 H* Calcium 8.7 Magnesium Total Bilirubin 0.2 AST 13 ALT 18 Alkaline Phosphatase 134 H Ammonia Total Protein 6.5 Albumin 3.2 Globulin 3.3 Albumin/Globulin Ratio 1.0 Lipase 145 H Beta-Hydroxybutyrate 0.49 H TSH Urine Color Urine Appearance Urine pH Ur Specific [place] Urine Protein Urine Glucose (UA) Urine Ketones Urine Occult Blood Urine Nitrate Urine Bilirubin Urine Urobilinogen Ur Leukocyte Esterase Urine RBC Urine WBC Ur Squamous Epith Cells Urine Bacteria Hyaline Casts Ur Culture Indicated? Urine Opiates Screen Ur Opiates Confirm Ur Oxycodone Screen Urine Methadone Screen Ur Methadone Confirm Ur Barbiturates Screen Ur Barbiturate Confirm Ur Phencyclidine Scrn Urine PCP Confirm Ur Amphetamines Screen U Amphetamines Confirm U Benzodiazepines Scrn U Benzodiazepine Confm Urine Cocaine Screen Urine Cocaine Confirm U Cannabinoids Confirm U Marijuana (THC) Screen Ethyl Alcohol A/P Assessment and plan (1) Type 2 diabetes mellitus with end-stage renal disease: Status: Acute (2) Hypertension due to end stage renal disease on dialysis: Status: Acute (3) ESRD on peritoneal dialysis: Status: Acute (4) Obesity (BMI 30-39.9): Status: Acute (5) Anemia in end-stage renal disease: Status: Acute (6) Mixed dyslipidemia: Status: Acute (7) Delirium: Status: Acute (8) SBP (spontaneous bacterial peritonitis): Status: Acute Narrative A/P Narrative: Assessment and Plans: 1. Acute delirium: DDx: SBP, UTI, other infectious process, hyperglycemia from uncontrolled diabetes Admit to inpatient med surg Lactic acid Blood culture Urine culture Ascites fluid analysis with gram stain culture cell count and differential Rocephin cbc w/ auto diff in the morning to trend WBC Olanzapine Ativan IV PRN anxiety 2. ESRD on PD: Consult Dr. Oneil for dialysis needs CMP daily 3. T2DM: HgA1c Hold any oral hypoglycemics Insulin Glargine 140 unit HS Insulin Lispro 30 unit TID AC High dose SSI AC HS Accu Chek AC HS Hypoglycemia protocol Diabetic diet 4. Essential HTN: Hydralazine 10mg IV q4-6hr PRN SBP>=180 and/or DBP>=110mmHg Coreg Lasix 5. Mixed dyslipidemia: Continue statin therapy 6. Anemia with ESRD: cbc w/ auto diff in the morning to trend H/H GI ppx: not currently indicated DVT ppx: Heparin Code status: Full Prognosis: guarded Disposition: inpatient med surg Time Spent With Patient Time: Total time spent is greater than 50% in coordination of care (as documented) at patient's floor/unit and/or counseling patient: Total time spent with greater than 50% in coordination of care (as documented) at patient's floor/unit and/or counseling patient:: Greater than 35 minutes QUALITY Stroke Symptom Onset Unknown: No VTE Deep Vein Thrombosis/Pulmonary Embolism Present on Admission: No
--- NOTE | 2021-07-13 07:19 | Nephrology Consult Note ---
HPI Data of Consult Patient: known to practice within the last 3 years Consult date: 07/13/21 Requesting physician: Rigo Chapman Primary Care Provider: Delmi Carey Consult Narrative Patient Information: Note initiated : 07/13/21 at 7:17 am Patient: Herman Hall 51 y/o M admitted on 07/13/21 for Confusion. Herman Hall is a 51-year-old male with end stage renal disease on peritoneal dialysis, chronic anemia due to ESRD, hypertension, diabetes mellitus type 2 admitted on 07/13/21. He presented to [facility] ED for confusion. His reported thet he was in his usual state at 6 am on Thursday when she left home. He was supposed to be working from home. He did not answer his phone and when she returned at 11 am, he was confused. He missed his medications yesterday, but had [facility] on night. He did not have a similar problem in the past. He had a CVA/TIA couple years ago which was different. She talked to the PD nurse on the way to ED and reported PD fluid to be clear and uneventful peritoneal dialysis. His vitals in ED were significant for temperature 98.1, BP up to 257/138, HR up to 138. Labs were significant for WBC 6.3, blood sugar of 882, lipase 145, lactate normal, VBG pH 7.35. U/A no leukocyte esterase, urine tox screen negative. CT brain without contrast: No acute finding, but moderate atrophy and chronic ischemic changes in the deep cerebral white matter-much greater than expected for patient's age of 51. Chest x-ray: No acute abnormality. Blood cultures, peritoneal fluid Gram stain, culture, and cell cou nt ordered. He was given IV insulin and Ceftriaxone. Chief complaint: Confusion Reason for consult: End stage renal disease on peritoneal dialysis cc:: CC: Rigo Chapman MD Review of Systems ROS unobtainable: due to mental status Review of systems: Information in HPI provided by his . PFSH PFSH All Active Problems (Updated 07/13/21 @ 07:14 by Rigo Chapman MD) SBP (spontaneous bacterial peritonitis) (Acute) Delirium (Acute) Mixed dyslipidemia (Acute) Anemia in end-stage renal disease (Acute) Obesity (BMI 30-39.9) (Acute) Hypertension due to end stage renal disease on dialysis (Acute) Type 2 diabetes mellitus with end-stage renal disease (Acute) Edema (Chronic) Diabetes mellitus, type II (Chronic) Essential hypertension, benign (Chronic) Mixed hyperlipidemia (Chronic) CKD (chronic kidney disease), stage IV (Chronic) Hypertensive renal disease (Chronic) Hyperparathyroidism due to renal insufficiency (Chronic) Proteinuria (Chronic) Gout due to renal impairment (Chronic) Anemia due to stage 4 chronic kidney disease (Chronic) CKD stage G5/A3, GFR <15 and albumin creatinine ratio >300 mg/g (Chronic) CKD (chronic kidney disease) stage 5, GFR less than 15 ml/min (Chronic) Accelerated hypertension (Chronic) Nephrotic range proteinuria (Chronic) Anemia due to stage 5 chronic kidney disease treated with darbepoetin (Chronic) Iron deficiency anemia due to chronic blood loss (Acute) ESRD on peritoneal dialysis (Acute) Diabetic peripheral neuropathy (Acute) Peritonitis associated with peritoneal dialysis (Acute) Peritonitis, spontaneous bacterial (Acute) Uncontrolled diabetes mellitus with ESRD (end-stage renal disease) (Acute) Hypoglycemia unawareness associated with type 2 diabetes mellitus (Acute) Leg pain (Acute) Hyperglycemia (Acute) Altered mental status (Acute) Medical History Accelerated hypertension Refractory to beta-blockers high-dose ARB, high-dose alpha-1 antagonist and loop diuretic Did respond to minoxidil but developed side effects and doses above 5 mg twice daily Anemia due to stage 4 chronic kidney disease HgB 8-9 gm/dl so monitoring, low Fe so increased Fe replacement to 65 mg BID BP too high for SANTOS CKD (chronic kidney disease) stage 5, GFR less than 15 ml/min With nephrotic range proteinuria in the setting of diabetes and accelerated hypertension CKD (chronic kidney disease), stage IV DM +/- HTN with nonnephrotic proteinuria CKD stage G5/A3, GFR <15 and albumin creatinine ratio >300 mg/g Seems to be primarily diabetic nephropathy with hypertensive renal disease Decreased proteinuria to <3 gm/day but too little, to late Chose PD so will arrange PD catheter and training to follow Diabetes mellitus, type II Urine Prot/Cr 1.5 but GFR makes ARB therapy controversial Hemoglobin A1c 7.5% in January 2019 Edema Essential hypertension, benign Avoiding ACEi and ARB due to GFR Gout due to renal impairment Uric acid elevated on 150 mg/day allopurinol. GFR <20, lasix and metolizone likely cause Hyperparathyroidism due to renal insufficiency PTH 150-300 range Hypertensive renal disease Goal blood pressure is 140/90 Valsartan, Minoxidil, carvedilol, doxazosin, furosemide and prn metolazone Mixed hyperlipidemia Nephrotic range proteinuria This is gone up from 1.5 g to 4 g per 24 hours in the setting of uncontrolled hypertension He is on maximal dose losartan Proteinuria This is evidence of diabetic nephropathy Surgical History History of umbilical hernia repair (10/13/19) with mesh and laparoscopic PD catheter placement. Family History Mother Malignant neoplasm Father Coronary artery disease Diabetes mellitus Hypertension Sister Diabetes mellitus Social History (Updated 09/28/19 @ 12:39 by Coleman Butts MD) marital status: occupational status: employed physical activity: none alcohol intake frequency: holiday/special occasion only substance use type: does not use MEDS/ALLERGIES Home Medications and Allergies Home Medications Medication Instructions Recorded Confirmed Type lancets MISCELLANE 04/26/15 10/22/20 History doxazosin 8 mg tablet 8 mg PO QHS #60 tab 09/04/20 10/22/20 Rx amitriptyline 50 mg tablet 50 mg PO QHS #30 tab 10/27/20 Rx gentamicin 0.1 % topical ointment 1 applic TOPICAL QDAY #30 g 11/21/20 Rx insulin lispro 200 unit/mL (3 mL) 30 unit SUB-Q .TID with meals 01/06/21 History subcutaneous pen (Humalog KwikPen U-200 Insulin) aspirin 81 mg tablet,delayed 81 mg PO QDAY #100 tab 04/03/21 Rx release (Adult Low Dose Aspirin) carvedilol 25 mg tablet 25 mg PO QHS #120 tab 04/03/21 Rx furosemide 80 mg tablet 160 mg PO BID #180 tab 04/03/21 Rx insulin glargine U-300 conc 300 140 unit SUB-Q QHS ml 04/03/21 History unit/mL (3 mL) subcutaneous pen (Toujeo Max U-300 SoloStar) tramadol 50 mg tablet 50 mg PO BID PRN #30 tab 04/17/21 Rx ferric citrate 210 mg iron tablet 420 mg PO .COMPLEX #180 tab 06/26/21 Rx (Auryxia) atorvastatin 80 mg tablet 80 mg PO QDAY #90 tab 06/27/21 Rx cinacalcet 60 mg tablet 60 mg PO QDAY #90 tab 07/09/21 07/09/21 Rx Allergies Allergy/AdvReac Type Severity Reaction Status Date / Time No Known Drug Allergies Allergy Verified 10/15/20 23:16 Physical Examination Vital Signs Vital signs: Temp Pulse Resp BP Pulse Ox 97 F 113 H 24 H 185/94 96 07/13/21 04:00 07/13/21 04:00 07/13/21 04:00 07/13/21 04:00 07/13/21 04:00 General Appearance General appearance: obese and anxious EENT EENT: mucous membranes moist Neck Neck: supple Respiratory Respiratory: clear Cardiovascular Cardiology: edema and regular rate Gastrointestinal Gastrointestinal: no tenderness and obese Integumentary Integumentary: warm and dry Neurologic Neurologic: confused and disoriented Musculoskeletal Musculoskeletal: no deformities and no erythema Results Lab Results Result Diagrams: 07/13/21 07:30 07/13/21 07:30 Lab results: Most recent lab results Calcium 8.7 mg/dL (8.6-10.4) 07/12/21 17:52 Magnesium 2.5 mg/dL (1.6-2.5) 07/12/21 17:52 A/P Assessment and plan (1) ESRD on peritoneal dialysis: Assessment and plan: Herman Hall is a 51-year-old male with end stage renal disease on peritoneal dialysis, chronic anemia due to ESRD, hypertension, diabetes mellitus type 2 admitted on 07/13/21. He presented to [facility] ED for confusion. His reported thet he was in his usual state at 6 am on Thursday when she left home. He was supposed to be working from home. He did not answer his phone and when she returned at 11 am, he was confused. He missed his medications yesterday, but had [facility] on night. He did not have a similar problem in the past. He had a CVA/TIA couple years ago which was different. She talked to the PD nurse on the way to ED and reported PD fluid to be clear and uneventful peritoneal jeanette lysis. His vitals in ED were significant for temperature 98.1, BP up to 257/138, HR up to 138. Labs were significant for WBC 6.3, blood sugar of 882, lipase 145, lactate normal, VBG pH 7.35. U/A no leukocyte esterase, urine tox screen negative. CT brain without contrast: No acute finding, but moderate atrophy and chronic ischemic changes in the deep cerebral white matter-much greater than expected for patient's age of 51. Chest x-ray: No acute abnormality. Blood cultures, peritoneal fluid Gram stain, culture, and cell count ordered. He was given IV insulin and Ceftriaxone. End stage renal disease on peritoneal dialysis. Chronic anemia due to ESRD. Altered mental status, likely acute encephalopathy. Patient receiving opioids, benzodiazepines, tricyclic antidepressants, antipsychotics. Suspected diabetic hyperosmolar hyperglycemic state. He missed his medications yesterday Suspected accelerated hypertension. He missed his medications yesterday Peritoneal dialysis related peritonitis considered and work up ordered. No abdominal pain or cloudy PD fluid yesterday. Urinary tract infection considered. Suspected dysuria per his . Metabolic acidosis with high anion gap, partly due to ESRD, managed by dialysis. Fluid overload with bilateral lower extremity edema. No electrolyte problem. Recommendations/Plan: PD fluid cell count, gram stain and culture sent. Ceftriaxone started. CAPD: One exchange with 2000 ml 1.5% before the cycler. CCPD: 2000 ml four exchanges 1.5%, 300 ml last fill. I informed his at bedside today. Dr. Butts will take over tomorrow at 7am. Status: Acute Time Spent With Patient Time: Total time spent is greater than 50% in coordination of care (as documented) at patient's floor/unit and/or counseling patient:
[2021-07-13] MEDS ORDERED: traMADol 50 MG TABLET PO PRN (07:51)
[2021-07-13] MEDS: FUROSEMIDE 80 MG TABLET PO SCH ×2 (08:03→16:43)
[2021-07-13] MEDS: CINACALCET 30 MG TABLET PO SCH (08:04)
[2021-07-13] MEDS: INSULIN LISPRO 1 UNIT/0.01 ML UNIT SQ SCH ×8 (08:16→20:35)
[2021-07-13 08:20] LABS: Basophils # (Auto) 0.06 K/mcL (0.00-0.30); Basophils % (Auto) 0.6 % (0.0-2.0); Eosinophils # (Auto) 0.18 K/mcL (0.00-0.70); Eosinophils % (Auto) 1.9 % (0.0-7.0); Hematocrit 27.7 % (40.1-51.0); Hemoglobin 9.4 g/dL (13.7-17.5); Lymphocytes % (Auto) 14.5 % (15.5-49.0); Mean Cell Volume 90.2 fL (80.0-100.0); Mean Corpuscular HGB Conc 33.9 g/dL (31.0-36.0); Mean Platelet Volume 10.4 fL (7.4-10.4); Monocytes # (Auto) 0.59 K/mcL (0.10-0.90); Monocytes % (Auto) 6.1 % (1.0-12.0); Neutrophils % (Auto) 76.9 % (38.0-78.0); Platelet Count 182 K/mcL (140-440); RBC 3.07 M/mcL (4.63-6.08); Red Cell Distribution Width 13.2 % (11.5-14.5); WBC 9.7 K/mcL (4.5-11.0)
[2021-07-13 08:32] LABS: Hemoglobin A1C 11.5 % Hgb (4.0-6.0)
[2021-07-13 08:44] LABS: ALT/SGPT 17 U/L (<40); AST/SGOT 23 U/L (<40); Albumin 2.8 gm/dL (3.2-5.2); Albumin/Globulin Ratio 0.9 (1.0-2.3); Alkaline Phosphatase 121 U/L (39-117); Bilirubin,Total < 0.2 mg/dL (0.1-1.0); Blood Urea Nitrogen 75 mg/dL (6-20); Calcium 8.3 mg/dL (8.6-10.4); Carbon Dioxide 18 mmol/L (22-30); Chloride 94 mmol/L (96-108); Globulin 3.1 gm/dL (2.2-3.7); Glomerular Filtration Rate 6; Glucose 414 mg/dL (70-105)
[2021-07-13] MEDS: ATORVASTATIN 40 MG TABLET PO SCH (09:17)
[2021-07-13] MEDS: HEPARIN 5,000 UNIT/ML VIAL SQ SCH ×2 (09:17→20:08)
[2021-07-13] MEDS: DOCUSATE SODIUM 100 MG CAPSULE PO SCH ×2 (09:18→20:09)
[2021-07-13] MEDS: GENTAMICIN CRM 0.1% TUBE 15GM TOPICAL SCH (09:18)
[2021-07-13] MEDS: ASPIRIN 81 MG TAB.CHEW PO SCH (09:18)
[2021-07-13] MEDS ORDERED: INSULIN GLARGINE, HUMAN 1 UNIT/0.01 ML SQ ONE (10:09)
[2021-07-13] MEDS: hydrALAZINE 20 MG/ML VIAL IV PRN (12:06)
[2021-07-13 12:35] LABS: Monocyte,Peritoneal Fluid 30 %; Neutrophils,Peritoneal Fluid 42 %; Nucleated Cel,Peritoneal Fluid 63 /cumm; RBC,Peritoneal Fluid <50,000 /cumm
--- NOTE | 2021-07-13 12:51 | Internal Med Progress Note ---
SUBJECTIVE Subjective Patient information: Note initiated : 07/13/21 at 12:45 pm Service Date, if different from initiated Date: [] Patient: Herman Hlal 51 y/o M admitted on 07/13/21 for Confusion. Chief Complaint: [] Principal diagnosis: Encephalopathy Interval history: Mr. Hall is a 51 year old M history of end-stage renal disease on peritoneal dialysis, type 2 diabetes mellitus insulin-dependent, essential hypertension's, mixed dyslipidemia, presenting with 1 day history of acute onset confusions. There was no prior similar episode. The following history is limited by patient's clinical situations and most of it is obtained from at the bedside. Patient was in his usual clinical status test until yesterday when his came home from work found out he was confused, lethargic, not acting like himself, the house is in chaos, and barely answer any questions. There was no prior similar episode according to the . Vital signs at ED presentation significant for tachycardia and tachypnea with heart rate and rate of breathing in the 1 teens and mid 20s, respectively. Labs significant for lack of leukocytosis with WBC 6.3. Blood glucose 882, anion gap was 17, serum bicarb of 23 so it does not fit the diabetic ketoacidosis or HHS criteria. Negative nitrate negative leukocyte esterase from the urinalysis. Chest x-ray unremarkable. Head CT no sign of acute intracranial pathologies. Current working diagnosis is a spontaneous bacterial peritonitis. Insulin drip was briefly provided in the ED which was started after repeat blood sugar check in the 200s range. 07/14 Ascites fluid analysis was not consistent with bacterial peritonitis. The patient's mental status has improved significantly and now near his baseline. Urine culture pending, the patient does make urine and reports dysuria prior to admission. Metabolic acidosis slightly worsened today, nephrology making adjustments to peritoneal dialysis regimen. Physical exam Head: Atraumatic, normal inspection. Eyes: normal appearance, no scleral icterus. Neck: full ROM Respiratory: no respiratory distress. Cardiovascular: normal rate and rhythm, S1, S2. GI/Abdominal: soft, nontender, no guarding, peritoneal dialysis catheter present. Extremities: full range of motion, nontender. Neurological: CN II-XII intact, intact motor, intact sensation. Psychiatric: normal mood. Skin: warm, normal color Constitutional Vitals: Vital Signs Temp Pulse Resp BP Pulse Ox 97.7 F 113 H 24 H 181/91 97 07/13/21 12:00 07/13/21 04:00 07/13/21 12:00 07/13/21 12:00 07/13/21 12:00 Period Temp Pulse Resp BP Sys/Zelaya Pulse Ox Last 24 Hr 97 F-98.6 F 57-140 15-31 160-257/87-198 81-100 Intake and Output 07/12/21 07/13/21 07/13/21 21:59 05:59 13:59 Intake Total 1100 120 Output Total 0 Balance 1100 120 Weight 117.027 kg 117.027 kg Intake & Output: Intake & Output 07/12/21 07/13/21 07/13/21 21:59 05:59 13:59 Intake Total 1100 120 Output Total 0 Balance 1100 120 Weight 117.027 kg 117.027 kg Intake: IV 1100 Sodium Chloride 0.9% 1,000 ml @ 1000 Wide Open IV BOLUS ONE Rx#: [id number] HumuLIN R 50 UNIT In Sodium 100 Chloride 0.9% 99.5 ml @ 10 UNIT /HR 20 mls/hr IV ONCE ONE Rx#: [id number] Oral 0 120 Output: Void Amount 0 Other: Meal Breakfast Percent of Meal Consumed few bites Feeding Ability Total Assistance OBJ DATA Labs CBC & Chem 7: 07/14/21 05:55 07/14/21 05:55 Labs: Abnormal Lab Results 07/13/21 07/13/21 07/13/21 07:30 07:30 07:30 RBC 3.07 L Hgb 9.4 L Hct 27.7 L MPV Lymph % (Auto) 14.5 L Lymph # (Auto) 1.40 L Sodium 132 L Chloride 94 L Carbon Dioxide 18 L Anion Gap 20.0 H BUN 75 H Creatinine 9.6 H* Glucose 414 H Hemoglobin A1c 11.5 H Calcium 8.3 L Alkaline Phosphatase 121 H Albumin 2.8 L Albumin/Globulin Ratio 0.9 L Lipase Beta-Hydroxybutyrate Urine Protein Urine Glucose (UA) Urine Occult Blood Urine Bacteria Hyaline Casts 07/12/21 07/12/21 07/12/21 20:58 17:52 17:52 RBC 3.13 L Hgb 9.6 L Hct 28.8 L MPV 10.6 H Lymph % (Auto) Lymph # (Auto) 1.00 L Sodium 125 L Chloride 85 L Carbon Dioxide Anion Gap 17.0 H BUN 73 H Creatinine 9.4 H* Glucose 882 H* Hemoglobin A1c Calcium Alkaline Phosphatase 134 H Albumin Albumin/Globulin Ratio Lipase 145 H Beta-Hydroxybutyrate 0.49 H Urine Protein >=300 mg/dl A Urine Glucose (UA) 500 mg/dl A Urine Occult Blood Moderate A Urine Bacteria Few A Hyaline Casts 9 H Meds: Medications Acetaminophen (Acetaminophen 325 Mg Tablet) 650 mg PO Q6HP PRN; Protocol PRN Reason: Per Pain Protocol/Fever > 101 Albuterol/Ipratropium (Ipratropium/Albuterol 3 Ml Ampul.Neb) 3 ml NEB Q4HRT PRN PRN Reason: Wheezing Amitriptyline HCl (Amitriptyline 25 Mg Tablet) 50 mg PO HS [facility] Aspirin (Aspirin 81 Mg Tab.Chew) 81 mg PO DAILY [facility] Last Admin: 07/13/21 09:18 Dose: 81 mg Documented by: Atorvastatin Calcium (Atorvastatin 40 Mg Tablet) 80 mg PO DAILY [facility] Last Admin: 07/13/21 09:17 Dose: 80 mg Documented by: Carvedilol (Carvedilol 12.5 Mg Tablet) 25 mg PO HS [facility] Cinacalcet (Cinacalcet 30 Mg Tablet) 60 mg PO [facility] Last Admin: 07/13/21 08:04 Dose: 60 mg Documented by: Dextrose (Dextrose 50% 50 Ml Vial) 0 ml IV UD PRN PRN Reason: Hypoglycemia Diagnostic Test (Pha) (Accu-Chek 1 Each Strip) 1 each FS ACHS [facility] Last Admin: 07/13/21 12:06 Dose: 1 each Documented by: Docusate Sodium (Docusate Sodium 100 Mg Capsule) 100 mg PO BID [facility] Last Admin: 07/13/21 09:18 Dose: 100 mg Documented by: Doxazosin Mesylate (Doxazosin 4 Mg Tablet) 8 mg PO HS [facility] Furosemide (Furosemide 80 Mg Tablet) 160 mg PO BIDD [facility] Last Admin: 07/13/21 08:03 Dose: 160 mg Documented by: Gentamicin Sulfate (Gentamicin Crm 0.1% Tube 15gm) 1 dose TOPICAL DAILY [facility] Last Admin: 07/13/21 09:18 Dose: Not Given Documented by: Glucose (Dextrose 31 Gm Oral.Susp) 15 gm PO PRN PRN PRN Reason: Hypoglycemia Heparin Sodium (Porcine) (Heparin 5,000 Unit/Ml Vial) 5,000 unit SQ Q12 [facility] Last Admin: 07/13/21 09:17 Dose: 5,000 unit Documented by: Hydralazine HCl (Hydralazine 20 Mg/Ml Vial) 10 mg IV Q4-6HP PRN PRN Reason: Hypertension Last Admin: 07/13/21 12:06 Dose: 10 mg Documented by: Ceftriaxone Sodium 2 gm/ (Dextrose) 50 mls @ 100 mls/hr IV DAILY [facility] Insulin Glargine (Insulin Glargine, Human 1 Unit/0.01 Ml) 140 unit SQ HS [facility] Insulin Human Lispro (Insulin Lispro 1 Unit/0.01 Ml Unit) 30 unit SQ TIDCC [facility] Last Admin: 07/13/21 12:04 Dose: Not Given Documented by: Insulin Human Lispro (Insulin Lispro 1 Unit/0.01 Ml Unit) 0 unit SQ ACHS [facility]; Protocol Last Admin: 07/13/21 12:07 Dose: 15 unit Documented by: Lorazepam (Lorazepam 2 Mg/Ml Vial) 1 mg IV Q2-4HP PRN PRN Reason: ANXIETY/SEDATION Ondansetron HCl (Ondansetron 4 Mg/2 Ml Vial) 4 mg IV Q6HP PRN PRN Reason: Nausea And Vomiting Ferric Citrate [ Auryxia] 210 Mg Iron Tablet 1 dose PO TIDCC [facility] Last Admin: 07/13/21 12:06 Dose: Not Given Documented by: Senna (Sennosides 1 Tablet) 2 tab PO HS [facility] Sodium Chloride (0.9 % Sodium Chloride 10 Ml Syringe) 10 ml IV Q8 [facility] Tramadol HCl (Tramadol 50 Mg Tablet) 50 mg PO BIDP PRN; Protocol PRN Reason: Pain Zolpidem Tartrate (Zolpidem 5 Mg Tablet) 5 mg PO HSP PRN PRN Reason: Insomnia A/P Narrative A/P Narrative: Assessment:51 year old M history of end-stage renal disease on peritoneal dialysis, type 2 diabetes mellitus insulin-dependent, essential hypertension's, mixed dyslipidemia, presenting with 1 day history of acute onset confusions. #Encephalopathy of uncertain etiology -metabolic versus infectious #Concern for UTI #Metabolic acidosis #ESRD on peritoneal dialysis #Type 2 diabetes mellitus, poorly controlled -Hemoglobin A1c 11.5 #Hypertension #Hyperlipidemia #Anemia of ESRD #History of multiple CVA-increased risk for vascular dementia Plan -Beta hydroxybutyrate, VBG for pH. -Continue ceftriaxone for now. -Follow all cultures, de-escalate antibiotic therapy accordingly. -Lantus, prandial Humalog and SSI. -Essential home medications. -Nephrology following for peritoneal dialysis. -PT -DVT PPx: Heparin SQ -CODE STATUS: Full -Disposition:Home when stable Time Spent With Patient Time: Total time spent is greater than 50% in coordination of care (as documented) at patient's floor/unit and/or counseling patient: QUALITY Stroke Symptom Onset Unknown: No VTE Deep Vein Thrombosis/Pulmonary Embolism Present on Admission: No
[2021-07-13 13:59] LABS: ABG Methemoglobin 0.3 % (0.4-1.5); Total Hemoglobin 9.6 gm/Dl (13.5-16.5); VBG Base Excess -1 (-2-3); VBG HCO3 23.1 mmol/L (24.0-28.0); VBG Oxygen Saturation 92.7 % (40.0-70.0); VBG PH 7.44 U (7.32-7.42); VBG PO2 113.4 mmHg (25.0-40.0); VBG Total CO2 24.2 mmol/L (25.0-29.0)
[2021-07-13] MEDS: cefTRIAXone 2 GM in DEXTROSE 5% IN WATER 50 ML IV SCH (15:29)
[2021-07-13] MEDS: 0.9 % SODIUM CHLORIDE 10 ML SYRINGE IV SCH ×2 (15:29→20:17)
[2021-07-13] MEDS ORDERED: 0.9 % SODIUM CHLORIDE 1,000 ML IV ONE (15:54)
[2021-07-13] MEDS: AMITRIPTYLINE 25 MG TABLET PO SCH (20:08)
[2021-07-13] MEDS: SENNOSIDES 1 TABLET PO SCH (20:08)
[2021-07-13] MEDS: DOXAZOSIN 4 MG TABLET PO SCH (20:09)
[2021-07-13] MEDS: CARVEDILOL 12.5 MG TABLET PO SCH (20:09)
[2021-07-13] MEDS: INSULIN GLARGINE, HUMAN 1 UNIT/0.01 ML SQ SCH (20:34)
[2021-07-13] MEDS ORDERED: ZOLPIDEM 5 MG TABLET PO PRN (21:00)
[2021-07-13 22:19] LABS: Amylase,Peritoneal Fluid < 3 U/L; Glucose,Peritoneal Fluid 947 mg/dL; LDH,Peritoneal Fluid 18 U/L; Total Protein,Peritoneal Fluid 0.3 gm/dL
[2021-07-14] MEDS: 0.9 % SODIUM CHLORIDE 10 ML SYRINGE IV SCH ×3 (05:09→20:26)
[2021-07-14 07:01] LABS: Basophils # (Auto) 0.07 K/mcL (0.00-0.30); Basophils % (Auto) 0.9 % (0.0-2.0); Eosinophils # (Auto) 0.47 K/mcL (0.00-0.70); Eosinophils % (Auto) 5.9 % (0.0-7.0); Hematocrit 28.9 % (40.1-51.0); Hemoglobin 9.9 g/dL (13.7-17.5); Lymphocytes # (Auto) 2.11 K/mcL (1.50-4.80); Lymphocytes % (Auto) 26.3 % (15.5-49.0); Mean Corpuscular HGB Conc 34.3 g/dL (31.0-36.0); Mean Platelet Volume 10.4 fL (7.4-10.4); Monocytes # (Auto) 0.57 K/mcL (0.10-0.90); Monocytes % (Auto) 7.1 % (1.0-12.0); Neutrophils % (Auto) 59.8 % (38.0-78.0); Platelet Count 210 K/mcL (140-440); RBC 3.21 M/mcL (4.63-6.08); Red Cell Distribution Width 13.3 % (11.5-14.5)
[2021-07-14] MEDS: INSULIN LISPRO 1 UNIT/0.01 ML UNIT SQ SCH ×7 (07:43→20:24)
[2021-07-14 08:06] LABS: ALT/SGPT 20 U/L (<40); AST/SGOT 24 U/L (<40); Albumin 2.8 gm/dL (3.2-5.2); Albumin/Globulin Ratio 0.8 (1.0-2.3); Alkaline Phosphatase 119 U/L (39-117); Bilirubin,Direct < 0.2 mg/dL (0-0.3); Bilirubin,Total < 0.2 mg/dL (0.1-1.0); Blood Urea Nitrogen 70 mg/dL (6-20); Calcium 8.4 mg/dL (8.6-10.4); Carbon Dioxide 19 mmol/L (22-30); Chloride 99 mmol/L (96-108); Globulin 3.4 gm/dL (2.2-3.7); Glomerular Filtration Rate 6; Glucose 177 mg/dL (70-105); Lactate Dehydrogenase 310 U/L (135-225); Phosphorous 8.1 mg/dL (2.5-4.5); Triglycerides 1139 mg/dL (<150)
[2021-07-14] MEDS: cefTRIAXone 2 GM VIAL ONE ×2 (08:54→11:36)
[2021-07-14] MEDS: HEPARIN 5,000 UNIT/ML VIAL SQ SCH ×2 (08:54→20:24)
[2021-07-14] MEDS: ASPIRIN 81 MG TAB.CHEW PO SCH (08:55)
[2021-07-14] MEDS: DOCUSATE SODIUM 100 MG CAPSULE PO SCH ×2 (08:55→20:25)
[2021-07-14] MEDS: CINACALCET 30 MG TABLET PO SCH (08:55)
[2021-07-14] MEDS: ATORVASTATIN 40 MG TABLET PO SCH (08:55)
[2021-07-14] MEDS: FUROSEMIDE 80 MG TABLET PO SCH ×2 (08:55→15:20)
[2021-07-14] MEDS: GENTAMICIN CRM 0.1% TUBE 15GM TOPICAL SCH (08:56)
[2021-07-14] MEDS: cefTRIAXone 2 GM in DEXTROSE 5% IN WATER 50 ML IV SCH (10:29)
[2021-07-14] MEDS: hydrALAZINE 20 MG/ML VIAL IV PRN (15:19)
--- NOTE | 2021-07-14 16:52 | Nephrology Progress Note ---
SUBJECTIVE Subjective Patient information: Note initiated : 07/14/21 at 4:37 pm Service Date, if different from initiated Date: [] Patient: Herman Hall 51 y/o M admitted on 07/13/21 for Confusion. Chief Complaint: [Altered mental status with BS > 800] Principal diagnosis: Encephalopathy Interval history: Seen and evaluated on rounds. Data reviewed. 51 yr old male with Type 2 DM, accelerated HTN, and ESRD maintained on CCPD. Works from home but compliance issues. Has had 2 episodes of CAPD related peritonitis. Reports nausea and vomiting which in his mind means do not take your insulin because I'm not eating forgetting about the glucose load present in his PD fluid (1.5 to 4.5% dextrose for 8-10 hours a day) plus any basal insulin requirements. He is insulin resistant as well and uses a long acting insulin at night which he "forgot to use" as well as SS correction factor + meal time humalog at mealtime. On the day of admission he was encephalopathic and brought to ED with BS >800 mg/dl, 2-fold elevation in serum ketones, and a calculated Serum Osmolarity of 325. He was admitted, treated with IV regular insulin and enjoyed a correction in his glucose and partial correction in his osmolarity with some improvement in mentation. He had marked HTN (probably due to not taking Rx) and nothing acute on CT. Vital Signs Temp Pulse Resp BP BP Pulse Ox 07/14/21 15:53 36.4 C 20 190/96 96 07/14/21 12:00 36.4 C 16 196/100 100 07/14/21 07:38 36.2 C 16 133/67 95 07/14/21 03:00 37.2 C 83 22 184/97 96 07/13/21 23:54 36.6 C 80 22 184/90 100 07/13/21 21:08 36.2 C 133/67 07/13/21 20:00 36.4 C 92 H 24 H 179/124 92 07/13/21 19:01 20 Intake and Output 07/14/21 07/14/21 07/14/21 05:59 13:59 21:59 Intake Total 50 Balance 50 Intake: IV 50 Rocephin 2 gm In Dextrose 5% in 50 Water 50 ml @ 100 mls/hr IV DAILY [facility] Rx#:[id number] Other: Meal Lunch Percent of Meal Consumed 90 Feeding Ability Assist with Tray Set Up Stool Size Small Stool Color Brown Stool Consistency Soft # Bowel Movements 1 # of times incontinent of 0 Bowels Laboratory Tests 07/14/21 05:55 WBC 8.0 Hgb 9.9 L Hct 28.9 L Plt Count 210 Eos % (Auto) 5.9 07/13/21 07/14/21 13:33 05:55 Sodium 140 Potassium 3.3 Chloride 99 Carbon Dioxide 19 L Anion Gap 22.0 H BUN 70 H Creatinine 9.5 H* GFR Calculation 6 Glucose 177 H Uric Acid 12.0 H Calcium 8.4 L Magnesium 2.4 Alkaline Phosphatase 119 H Lactate Dehydrogenase 310 H Albumin 2.8 L Triglycerides 1139 H Beta-Hydroxybutyrate 0.11 07/13/21 07/13/21 11:08 11:09 Peritoneal Color light pink Peritoneal Appearance Hazy Peritoneal RBC <50,[address] 100 Periton Nuc Cells 63 Periton Neutrophils 42 Periton Lymphocytes 28 Peritoneal Monocytes 30 Peritoneal Tot Protein 0.3 Peritoneal LDH 18 Peritoneal Glucose 947 Peritoneal Amylase < 3 Peritoneal Lipase 5 07/12/21 20:58 Urine Color Yellow Urine Appearance Clear Urine pH 6.5 Ur Specific [place] 1.015 Urine Protein >=300 mg/dl A Urine Glucose (UA) 500 mg/dl A Urine Ketones Negative Urine Occult Blood Moderate A Urine Nitrate Negative Urine Bilirubin Negative Urine Urobilinogen Normal Ur Leukocyte Esterase Negative Urine RBC 2 Urine WBC 3 Ur Squamous Epith Cells 1 Urine Bacteria Few A Hyaline Casts 9 H Ur Culture Indicated? Yes Urine Culture Preliminary 07/14/21-1230 PRL No growth to date. Pertinent ROS: Reviewed with patient GI sx gone Less confused but still "goofy" Additional PMFSH (Level 3 Only): Nothing new Constitutional Vitals: Vital Signs Temp Pulse Resp BP Pulse Ox 36.4 C 83 20 190/96 96 07/14/21 15:53 07/14/21 03:00 07/14/21 15:53 07/14/21 15:53 07/14/21 15:53 Period Temp Pulse Resp BP Sys/Zelaya Pulse Ox Last 24 Hr 36.2 C-37.2 C 80-92 16-24 133-196/67-124 92-100 Intake and Output 07/14/21 07/14/21 07/14/21 05:59 13:59 21:59 Intake Total 50 Balance 50 Intake & Output: Intake & Output 07/14/21 07/14/21 07/14/21 05:59 13:59 21:59 Intake Total 50 Balance 50 Intake: IV 50 Rocephin 2 gm In Dextrose 5% in 50 Water 50 ml @ 100 mls/hr IV DAILY [facility] Rx#:[id number] Other: Meal Lunch Percent of Meal Consumed 90 Feeding Ability Assist with Tray Set Up Stool Size Small Stool Color Brown Stool Consistency Soft # Bowel Movements 1 # of times incontinent of 0 Bowels Medications Acetaminophen (Acetaminophen 325 Mg Tablet) 650 mg PO Q6HP PRN; Protocol PRN Reason: Per Pain Protocol/Fever > 101 Albuterol/Ipratropium (Ipratropium/Albuterol 3 Ml Ampul.Neb) 3 ml NEB Q4HRT PRN PRN Reason: Wheezing Amitriptyline HCl (Amitriptyline 25 Mg Tablet) 50 mg PO [facility] Last Admin: 07/13/21 20:08 Dose: 50 mg Documented by: Aspirin (Aspirin 81 Mg Tab.Chew) 81 mg PO DAILY [facility] Last Admin: 07/14/21 08:55 Dose: 81 mg Documented by: Atorvastatin Calcium (Atorvastatin 40 Mg Tablet) 80 mg PO DAILY [facility] Last Admin: 07/14/21 08:55 Dose: 80 mg Documented by: Carvedilol (Carvedilol 12.5 Mg Tablet) 25 mg PO [facility] Last Admin: 07/13/21 20:09 Dose: 25 mg Documented by: Cinacalcet (Cinacalcet 30 Mg Tablet) 60 mg PO [facility] Last Admin: 07/14/21 08:55 Dose: 60 mg Documented by: Dextrose (Dextrose 50% 50 Ml Vial) 0 ml IV UD PRN PRN Reason: Hypoglycemia Diagnostic Test (Pha) (Accu-Chek 1 Each Strip) 1 each FS ACHS [facility] Last Admin: 07/14/21 17:07 Dose: 1 each Documented by: Docusate Sodium (Docusate Sodium 100 Mg Capsule) 100 mg PO BID [facility] Last Admin: 07/14/21 08:55 Dose: 100 mg Documented by: Doxazosin Mesylate (Doxazosin 4 Mg Tablet) 8 mg PO [facility] Last Admin: 07/13/21 20:09 Dose: 8 mg Documented by: Furosemide (Furosemide 80 Mg Tablet) 160 mg PO BIDD [facility] Last Admin: 02/27/22 15:20 Dose: 160 mg Documented by: Gentamicin Sulfate (Gentamicin Crm 0.1% Tube 15gm) 1 dose TOPICAL DAILY [facility] Last Admin: 07/14/21 08:56 Dose: Not Given Documented by: Glucose (Dextrose 31 Gm Oral.Susp) 15 gm PO PRN PRN PRN Reason: Hypoglycemia Heparin Sodium (Porcine) (Heparin 5,000 Unit/Ml Vial) 5,000 unit SQ Q12 [facility] Last Admin: 07/14/21 08:54 Dose: 5,000 unit Documented by: Hydralazine HCl (Hydralazine 20 Mg/Ml Vial) 10 mg IV Q4-6HP PRN PRN Reason: Hypertension Last Admin: 07/14/21 15:19 Dose: 10 mg Documented by: Ceftriaxone Sodium 2 gm/ (Dextrose) 50 mls @ 100 mls/hr IV DAILY [facility] Last Infusion: 07/14/21 11:35 Dose: Infused Documented by: Insulin Glargine (Insulin Glargine, Human 1 Unit/0.01 Ml) 140 unit SQ [facility] Last Admin: 07/13/21 20:34 Dose: 140 unit Documented by: Insulin Human Lispro (Insulin Lispro 1 Unit/0.01 Ml Unit) 30 unit SQ [facility] Last Admin: 07/14/21 17:09 Dose: Not Given Documented by: Insulin Human Lispro (Insulin Lispro 1 Unit/0.01 Ml Unit) 0 unit SQ [facility]; Protocol Last Admin: 07/14/21 17:08 Dose: 6 unit Documented by: Lorazepam (Lorazepam 2 Mg/Ml Vial) 1 mg IV Q2-4HP PRN PRN Reason: ANXIETY/SEDATION Ondansetron HCl (Ondansetron 4 Mg/2 Ml Vial) 4 mg IV Q6HP PRN PRN Reason: Nausea And Vomiting Ferric Citrate [ Auryxia] 210 Mg Iron Tablet 1 dose PO TIDCC [facility] Last Admin: 07/14/21 17:11 Dose: Not Given Documented by: Senna (Sennosides 1 Tablet) 2 tab PO [facility] Last Admin: 07/13/21 20:08 Dose: 2 tab Documented by: Sodium Chloride (0.9 % Sodium Chloride 10 Ml Syringe) 10 ml IV Q8 [facility] Last Admin: 07/14/21 15:22 Dose: 10 ml Documented by: Tramadol HCl (Tramadol 50 Mg Tablet) 50 mg PO BIDP PRN; Protocol PRN Reason: Pain Zolpidem Tartrate (Zolpidem 5 Mg Tablet) 5 mg PO HSP PRN PRN Reason: Insomnia General appearance: obese Head Head exam: Present normal inspection and normocephalic Eye Eye exam: Present EOMI and PERRL Pupils: Present PERRL ENT ENT exam: Present mucous membranes moist Neck Neck exam: Present full ROM; Absent meningismus Respiratory Respiratory exam: Present normal respiratory exam; Absent rales, respiratory distress or wheezes Cardiovascular Cardiovascular exam: Present normal rate and rhythm, +S1 and +S2; Absent JVD GI/Abdominal GI/Abdominal exam: Present normal bowel sounds; Absent bruit Extremities Exam Extremities exam: Absent calf tenderness or pedal edema Neurological Exam Neurological exam: Present alert and oriented X3 Additional comments: inappropriate laughter to questions. Recall not as good as a month ago in PD clinic. Psychiatric Psychiatric exam: Present anxious Skin Skin exam: Present normal color A/P Assessment and plan (1) Hypertension due to end stage renal disease on dialysis: Status: Chronic Comment: Increase carvedilol to 25 mg po BID Restart nifedipine ER 30 mg po qHS Restart losartan 50 mg po AM (2) Uncontrolled diabetes mellitus with ESRD (end-stage renal disease): Status: Chronic Comment: In general, when lantus dose >50 units a day, split into BID dosing so change to 70 units SQ BID (3) Hyperparathyroidism due to renal insufficiency: Status: Chronic Comment: PTH 150-300 range (4) ESRD on peritoneal dialysis: Status: Chronic Narrative A/P Narrative: 1. No evidence of infection peritoneal or urinary. So no objection to stopping antibiotics. 2. Continue CCPD and insulin therapy. 3. Recommend take a role in insulin administration. 4. Keep in mind that if you plan on rehab, it will need to be a place that acc epts CCPD patients, otherwise D/C to home with outpatient rehab. Recommendations: Increase carvedilol to 25 mg po BID Restart nifedipine ER 30 mg po qHS Restart losartan 50 mg po AM Lantus dose >50 units a day so split into BID dosing so change to 70 units SQ BID Time Spent With Patient Time: Total time spent is greater than 50% in coordination of care (as documented) at patient's floor/unit and/or counseling patient: Total time spent with greater than 50% in coordination of care (as documented) at patient's floor/unit and/or counseling patient:: 25 - 35 minutes
--- NOTE | 2021-07-14 18:08 | Nephrology Consult Note ---
HPI Data of Consult Primary Care Provider: Delmi Carey Consult Narrative Patient Information: Note initiated : 07/14/21 at 9:04 am Service Date, if different from initiated Date: [] Patient: Herman Hall 51 y/o M admitted on 07/13/21 for Confusion. Chief Complaint: [] cc:: CC: Rigo Chapman MD [facility] All Active Problems (Updated 07/14/21 @ 17:58 by Coleman Butts MD) Hyperglycemia (Acute) Altered mental status (Acute) Type 2 diabetes mellitus with end-stage renal disease (Acute) Hypertension due to end stage renal disease on dialysis (Chronic) Obesity (BMI 30-39.9) (Acute) Anemia in end-stage renal disease (Acute) Mixed dyslipidemia (Acute) Delirium (Acute) SBP (spontaneous bacterial peritonitis) (Acute) Leg pain (Acute) Hypoglycemia unawareness associated with type 2 diabetes mellitus (Acute) Uncontrolled diabetes mellitus with ESRD (end-stage renal disease) (Chronic) Peritonitis, spontaneous bacterial (Acute) Peritonitis associated with peritoneal dialysis (Acute) Diabetes mellitus, type II (Chronic) Essential hypertension, benign (Chronic) CKD (chronic kidney disease), stage IV (Chronic) Hypertensive renal disease (Chronic) Hyperparathyroidism due to renal insufficiency (Chronic) Proteinuria (Chronic) Gout due to renal impairment (Chronic) Anemia due to stage 4 chronic kidney disease (Chronic) CKD stage G5/A3, GFR <15 and albumin creatinine ratio >300 mg/g (Chronic) CKD (chronic kidney disease) stage 5, GFR less than 15 ml/min (Chronic) Accelerated hypertension (Chronic) Nephrotic range proteinuria (Chronic) Anemia due to stage 5 chronic kidney disease treated with darbepoetin (Chronic) Edema (Chronic) Mixed hyperlipidemia (Chronic) Iron deficiency anemia due to chronic blood loss (Acute) ESRD on peritoneal dialysis (Chronic) Diabetic peripheral neuropathy (Acute) Medical History Accelerated hypertension Refractory to beta-blockers high-dose ARB, high-dose alpha-1 antagonist and loop diuretic Did respond to minoxidil but developed side effects and doses above 5 mg twice daily Anemia due to stage 4 chronic kidney disease HgB 8-9 gm/dl so monitoring, low Fe so increased Fe replacement to 65 mg BID BP too high for SANTOS CKD (chronic kidney disease) stage 5, GFR less than 15 ml/min With nephrotic range proteinuria in the setting of diabetes and accelerated hypertension CKD (chronic kidney disease), stage IV DM +/- HTN with nonnephrotic proteinuria CKD stage G5/A3, GFR <15 and albumin creatinine ratio >300 mg/g Seems to be primarily diabetic nephropathy with hypertensive renal disease Decreased proteinuria to <3 gm/day but too little, to late Chose PD so will arrange PD catheter and training to follow Diabetes mellitus, type II Urine Prot/Cr 1.5 but GFR makes ARB therapy controversial Hemoglobin A1c 7.5% in January 2019 Edema Essential hypertension, benign Avoiding ACEi and ARB due to GFR Gout due to renal impairment Uric acid elevated on 150 mg/day allopurinol. GFR <20, lasix and metolizone likely cause Hyperparathyroidism due to renal insufficiency PTH 150-300 range Hypertensive renal disease Goal blood pressure is 140/90 Valsartan, Minoxidil, carvedilol, doxazosin, furosemide and prn metolazone Mixed hyperlipidemia Nephrotic range proteinuria This is gone up from 1.5 g to 4 g per 24 hours in the setting of uncontrolled hypertension He is on maximal dose losartan Proteinuria This is evidence of diabetic nephropathy Surgical History History of umbilical hernia repair (10/13/19) with mesh and laparoscopic PD catheter placement. Family History Mother Malignant neoplasm Father Coronary artery disease Diabetes mellitus Hypertension Sister Diabetes mellitus Social History (Updated 09/28/19 @ 12:39 by Coleman Butts MD) marital status: occupational status: employed physical activity: none alcohol intake frequency: holiday/special occasion only substance use type: does not use MEDS/ALLERGIES Home Medications and Allergies Home Medications Medication Instructions Recorded Confirmed Type lancets MISCELLANE 04/26/15 10/22/20 History doxazosin 8 mg tablet 8 mg PO QHS #60 tab 09/04/20 10/22/20 Rx amitriptyline 50 mg tablet 50 mg PO QHS #30 tab 10/27/20 Rx gentamicin 0.1 % topical ointment 1 applic TOPICAL QDAY #30 g 11/21/20 Rx insulin lispro 200 unit/mL (3 mL) 30 unit SUB-Q .TID with meals 08/22/21 History subcutaneous pen (Humalog KwikPen U-200 Insulin) aspirin 81 mg tablet,delayed 81 mg PO QDAY #100 tab 04/03/21 Rx release (Adult Low Dose Aspirin) carvedilol 25 mg tablet 25 mg PO QHS #120 tab 04/03/21 Rx furosemide 80 mg tablet 160 mg PO BID #180 tab 04/03/21 Rx insulin glargine U-300 conc 300 140 unit SUB-Q QHS ml 04/03/21 History unit/mL (3 mL) subcutaneous pen (Toujeo Max U-300 SoloStar) tramadol 50 mg tablet 50 mg PO BID PRN #30 tab 04/17/21 Rx ferric citrate 210 mg iron tablet 420 mg PO .COMPLEX #180 tab 06/26/21 Rx (Auryxia) atorvastatin 80 mg tablet 80 mg PO QDAY #90 tab 06/27/21 Rx cinacalcet 60 mg tablet 60 mg PO QDAY #90 tab 07/09/21 07/09/21 Rx Allergies Allergy/AdvReac Type Severity Reaction Status Date / Time No Known Drug Allergies Allergy Verified 10/15/20 23:16 Physical Examination Vital Signs Vital signs: Temp Pulse Resp BP Pulse Ox 36.2 C 83 16 133/67 95 07/14/21 07:38 07/14/21 03:00 07/14/21 07:38 07/14/21 07:38 07/14/21 07:38 Results Lab Results Result Diagrams: 07/14/21 05:55 07/14/21 05:55 Lab results: Most recent lab results Calcium 8.4 mg/dL (8.6-10.4) L 07/14/21 05:55 Phosphorus 8.1 mg/dL (2.5-4.5) H* 07/14/21 05:55 Magnesium 2.4 mg/dL (1.6-2.5) 07/14/21 05:55 A/P Assessment and plan (1) ESRD on peritoneal dialysis: Status: Chronic Time Spent With Patient Time: Total time spent is greater than 50% in coordination of care (as documented) at patient's floor/unit and/or counseling patient:
[2021-07-14] MEDS: AMITRIPTYLINE 25 MG TABLET PO SCH (20:24)
[2021-07-14] MEDS: DOXAZOSIN 4 MG TABLET PO SCH (20:25)
[2021-07-14] MEDS: INSULIN GLARGINE, HUMAN 1 UNIT/0.01 ML SQ SCH (20:25)
[2021-07-14] MEDS: CARVEDILOL 12.5 MG TABLET PO SCH (20:25)
[2021-07-14] MEDS: SENNOSIDES 1 TABLET PO SCH (20:25)
[2021-07-15] MEDS: 0.9 % SODIUM CHLORIDE 10 ML SYRINGE IV SCH (04:32)
[2021-07-15 06:40] LABS: Basophils # (Auto) 0.07 K/mcL (0.00-0.30); Basophils % (Auto) 0.9 % (0.0-2.0); Eosinophils % (Auto) 6.8 % (0.0-7.0); Hematocrit 27.3 % (40.1-51.0); Hemoglobin 9.3 g/dL (13.7-17.5); Lymphocytes # (Auto) 2.07 K/mcL (1.50-4.80); Lymphocytes % (Auto) 28.1 % (15.5-49.0); Mean Cell Volume 90.1 fL (80.0-100.0); Mean Corpuscular HGB Conc 34.1 g/dL (31.0-36.0); Mean Platelet Volume 10.6 fL (7.4-10.4); Monocytes # (Auto) 0.58 K/mcL (0.10-0.90); Monocytes % (Auto) 7.9 % (1.0-12.0); Neutrophils % (Auto) 56.3 % (38.0-78.0); Platelet Count 191 K/mcL (140-440); RBC 3.03 M/mcL (4.63-6.08); Red Cell Distribution Width 13.6 % (11.5-14.5); WBC 7.4 K/mcL (4.5-11.0)
[2021-07-15 07:18] LABS: ALT/SGPT 23 U/L (<40); AST/SGOT 23 U/L (<40); Albumin 2.7 gm/dL (3.2-5.2); Albumin/Globulin Ratio 0.9 (1.0-2.3); Alkaline Phosphatase 109 U/L (39-117); Bilirubin,Direct < 0.2 mg/dL (0-0.3); Bilirubin,Total < 0.2 mg/dL (0.1-1.0); Blood Urea Nitrogen 63 mg/dL (6-20); Calcium 8.6 mg/dL (8.6-10.4); Carbon Dioxide 20 mmol/L (22-30); Chloride 95 mmol/L (96-108); Glomerular Filtration Rate 6; Glucose 175 mg/dL (70-105); Lactate Dehydrogenase 313 U/L (135-225); Phosphorous 7.8 mg/dL (2.5-4.5); Triglycerides > 916 mg/dL (<150); Uric Acid 10.6 mg/dL (2.5-8.0)
[2021-07-15] MEDS ORDERED: POTASSIUM CHLORIDE 20 MEQ TABLET PO ONE (07:25)
--- NOTE | 2021-07-15 07:37 | EKG ---
[facility] Test Date: 2021-07-12 Pat Name: Herman Hall Department: ED Room: Gender: Male [employer]ades[employer] Worker: SE : 1970 Requested By: Marshall Rucker Order Number: [id number] Reading MD: Kaiden Connolly Measurements Intervals [place] Rate: 134 P: 53 HI: 112 QRS: 71 QRSD: 101 T: -74 QT: 367 QTc: 548 Interpretive Statements Reguarl Narrow complex tachycardic rhythm. Uncertain mechanism. Excessive artifact for interpretation Electronically Signed On 07-15-2021 7:37:03 PST by Kaiden Connolly /store/[email or web address]/[id number]
[2021-07-15] MEDS: INSULIN LISPRO 1 UNIT/0.01 ML UNIT SQ SCH ×4 (07:43→11:45)
[2021-07-15] MEDS: DOCUSATE SODIUM 100 MG CAPSULE PO SCH (08:22)
[2021-07-15] MEDS: FUROSEMIDE 80 MG TABLET PO SCH (08:22)
[2021-07-15] MEDS: CINACALCET 30 MG TABLET PO SCH (08:22)
[2021-07-15] MEDS: ASPIRIN 81 MG TAB.CHEW PO SCH (08:22)
[2021-07-15] MEDS: GENTAMICIN CRM 0.1% TUBE 15GM TOPICAL SCH (08:23)
[2021-07-15] MEDS: ATORVASTATIN 40 MG TABLET PO SCH (08:23)
[2021-07-15] MEDS: HEPARIN 5,000 UNIT/ML VIAL SQ SCH (08:23)
--- NOTE | 2021-07-15 10:09 | Nephrology Progress Note ---
SUBJECTIVE Subjective Patient information: Note initiated : 07/15/21 at 10:04 am Service Date, if different from initiated Date: [] Patient: Herman Hall 51 y/o M admitted on 07/13/21 for Confusion. Chief Complaint: [Altered MS in setting of BS >800] Principal diagnosis: Encephalopathy Interval history: SEDR. No new complaints Back to his baseline level of mentation and walking with PT.. No evidence of UTI or peritonitis. Triglycerides off the wall but PD fluid w/o elevation in lipase or amylase so pancreatitis unlikely Suspect GI virus => n/v => patient self discontinuation of insulin therapy => hyperglycemia and hyperosmolarity with starvation ketosis and alteration in MS w/o HONKC Vital Signs Temp Pulse Resp BP BP BP Pulse Ox 07/15/21 06:51 36.7 C 99 H 18 154/86 96 07/15/21 03:28 36.6 C 91 H 20 157/87 95 07/14/21 23:41 36.4 C 87 20 161/97 96 07/14/21 20:43 36.6 C 163/91 07/14/21 19:50 36.6 C 106 H 20 163/91 96 07/14/21 17:12 36.7 C 92 H 18 158/81 97 07/14/21 15:53 36.4 C 20 190/96 96 07/14/21 12:00 36.4 C 16 196/100 100 Laboratory Tests 07/15/21 07/15/21 04:52 04:53 WBC 7.4 Hgb 9.3 L Hct 27.3 L MCV 90.1 Plt Count 191 Sodium 135 Potassium 2.8 L* Chloride 95 L Carbon Dioxide 20 L Anion Gap 20.0 H BUN 63 H Creatinine 9.0 H* Glucose 175 H Uric Acid 10.6 H Calcium 8.6 Phosphorus 7.8 H* Albumin 2.7 L Triglycerides > 916 H Pertinent ROS: N/A but reviewed Additional PMFSH (Level 3 Only): N/A but reviewed Constitutional Vitals: Vital Signs Temp Pulse Resp BP Pulse Ox 36.7 C 99 H 18 154/86 96 07/15/21 06:51 07/15/21 06:51 07/15/21 06:51 07/15/21 06:51 07/15/21 06:51 Period Temp Pulse Resp BP Sys/Zelaya Pulse Ox Last 24 Hr 36.4 C-36.7 C 87-106 16-20 154-196/81-100 95-100 Intake and Output 07/14/21 07/15/21 07/15/21 21:59 05:59 13:59 Intake Total 800 800 Output Total 600 Balance 200 800 Weight 120.656 kg Intake & Output: Intake & Output 07/14/21 07/15/21 07/15/21 21:59 05:59 13:59 Intake Total 800 800 Output Total 600 Balance 200 800 Weight 120.656 kg Intake: Oral 800 800 Output: Void Amount 600 Other: Urine Appearance Clear Urine Color Bright Yellow Urine Odor Normal Stool Size Small Stool Color Brown Stool Consistency Soft # Voids 2 # Bowel Movements 1 # of times incontinent of 0 Bowels General appearance: cooperative and obese Head Head exam: Present normal inspection Eye Eye exam: Present EOMI and PERRL; Absent nystagmus Pupils: Present PERRL ENT ENT exam: Present mucous membranes moist Neck Neck exam: Present full ROM and normal inspection; Absent meningismus Respiratory Respiratory exam: Present normal respiratory exam and CTAB Cardiovascular Cardiovascular exam: Present normal rate and rhythm, RRR, +S1 and +S2 GI/Abdominal GI/Abdominal exam: Present normal bowel sounds and soft; Absent tenderness Additional comments: PD catheter in place Extremities Exam Extremities exam: Present pedal edema (Trace); Absent calf tenderness, normal inspection or tenderness Neurological Exam Neurological exam: Present abnormal gait (Walker for stability), alert, CN II- XII intact and oriented X3 Additional comments: Back to baseline MS Psychiatric Psychiatric exam: Present normal affect and normal mood Skin Skin exam: Present dry and intact; Absent cyanosis, pallor or petechiae A/P Narrative A/P Narrative: (1) Hypertension due to end stage renal disease on dialysis: (2) Uncontrolled diabetes mellitus with ESRD (end-stage renal disease): (3) Hyperparathyroidism due to renal insufficiency: (4) ESRD on peritoneal dialysis: (5) Hypokalemia Replace K po today and eliminate K restricted diet. Probably acute drop due to glucose >800 and IV insulin so should correct on its own. Narrative A/P Narrative: 1. No evidence of infection peritoneal or urinary. So no objection to stopping antibiotics. 2. Continue CCPD and insulin therapy. 3. Recommend take a role in insulin administration. 4. Keep in mind that if you plan on rehab, it will need to be a place that accepts CCPD patients, otherwise D/C to home with outpatient rehab. Recommendations: Discontinue renal dietary restrictions but continue diabetic and caloric restricted diet OK for D/C Send to staff educator (he's missed x 2) to get the ball rolling for CGM and insulin pump therapy He has follow up with me monthly in the PD clinic so no need to arrange any further f/U with me Time Spent With Patient Time: Total time spent is greater than 50% in coordination of care (as documented) at patient's floor/unit and/or counseling patient: Total time spent with greater than 50% in coordination of care (as documented) at patient's floor/unit and/or counseling patient:: 25 - 35 minutes
--- NOTE | 2021-07-15 11:29 | Discharge Summary ---
Discharge Provider Provider Patient information: Note initiated : 07/15/21 at 11:24 am Service Date, if different from initiated Date: [] Patient: Herman Hall 51 y/o M admitted on 07/13/21 for Confusion. Chief Complaint: [] Date of admission: 07/13/21 02:32 Discharge date: 07/15/21 Primary care physician: Delmi Carey Consults: 07/13/21 Consult to Physician [CONS] Stat Comment: Consulting Provider: Rigo Chapman Reason For Exam: Physician to Consult 07/13/21 07:01 Consult to Physician [CONS] Routine Comment: ESRD PD Consulting Provider: Jeremiah Oneil Reason For Exam: Physician to Consult Discharge Meds Discharge Medications Home Medications lancets MISCELLANE 04/26/15 [History Confirmed 10/22/20 Last Taken 01/05/21] doxazosin 8 mg tablet 8 mg PO QHS #60 tab 09/04/20 [Rx Confirmed 10/22/20 Last Taken 01/05/21] amitriptyline 50 mg tablet 50 mg PO QHS #30 tab 10/27/20 [Rx Last Taken 01/05/21] gentamicin 0.1 % topical ointment 1 applic TOPICAL QDAY #30 g 11/21/20 [Rx Last Taken 01/05/21] insulin lispro 200 unit/mL (3 mL) subcutaneous pen (Humalog KwikPen U-200 Insulin) 30 unit SUB-Q .TID with meals 01/06/21 [History Last Taken 01/05/21] aspirin 81 mg tablet,delayed release (Adult Low Dose Aspirin) 81 mg PO QDAY #100 tab 04/03/21 [Rx Last Taken Unknown] carvedilol 25 mg tablet 25 mg PO QHS #120 tab 04/03/21 [Rx Last Taken Unknown] furosemide 80 mg tablet 160 mg PO BID #180 tab 04/03/21 [Rx Last Taken Unknown] insulin glargine U-300 conc 300 unit/mL (3 mL) subcutaneous pen (Toujeo Max U- 300 SoloStar) 140 unit SUB-Q QHS ml 04/03/21 [History Last Taken Unknown] tramadol 50 mg tablet 50 mg PO BID PRN #30 tab 04/17/21 [Rx Last Taken Unknown] ferric citrate 210 mg iron tablet (Auryxia) 420 mg PO .COMPLEX #180 tab 06/26/21 [Rx Last Taken Unknown] atorvastatin 80 mg tablet 80 mg PO QDAY #90 tab 06/27/21 [Rx Last Taken Unknown] cinacalcet 60 mg tablet 60 mg PO QDAY #90 tab 07/09/21 [Rx Confirmed 07/09/21 Last Taken Unknown] COURSE Hospital Course Hospital course: Mr. Hall is a 51 year old M history of end-stage renal disease on peritoneal dialysis, type 2 diabetes mellitus insulin-dependent, essential hypertension's, mixed dyslipidemia, presenting with 1 day history of acute onset confusions. There was no prior similar episode. The following history is limited by patient's clinical situations and most of it is obtained from at the bedside. Patient was in his usual clinical status test until yesterday when his came home from work found out he was confused, lethargic, not acting like himself, the house is in chaos, and barely answer any questions. There was no prior similar episode according to the . Vital signs at ED presentation significant for tachycardia and tachypnea with heart rate and rate of breathing in the 1 teens and mid 20s, respectively. Labs significant for lack of leukocytosis with WBC 6.3. Blood glucose 882, anion gap was 17, serum bicarb of 23 so it does not fit the diabetic ketoacidosis or HHS criteria. Negative nitrate negative leukocyte esterase from the urinalysis. Chest x-ray unremarkable. Head CT no sign of acute intracranial pathologies. Current working diagnosis is a spontaneous bacterial peritonitis. Insulin drip was briefly provided in the ED which was started after repeat blood sugar check in the 200s range. 07/14 Ascites fluid analysis was not consistent with bacterial peritonitis. The patient's mental status has improved significantly and now near his baseline. Urine culture pending, the patient does make urine and reports dysuria prior to admission. Metabolic acidosis slightly worsened today, nephrology making adjustments to peritoneal dialysis regimen. 07/15 Cultures have not grown any organisms, discontinued Ceftriaxone. The patient is doing well, near baseline. Suspect the reason for the patient's presentation on 07/13/21 was elevated glucose causing hyperosmolar hyperglycemic syndrome. Discharged to home with home health, continue SQ insulin regimen for now the patient has a ict educator referral in the near future to discuss transitioning to an insulin pump. Follow up with nephrology. No medication changes at discharge. Physical exam Head: Atraumatic, normal inspection. Eyes: normal appearance, no scleral icterus. Neck: full ROM Respiratory: no respiratory distress. Cardiovascular: normal rate and rhythm, S1, S2. GI/Abdominal: soft, nontender, no guarding, peritoneal dialysis catheter present. Extremities: full range of motion, nontender. Neurological: CN II-XII intact, intact motor, intact sensation. Psychiatric: normal mood. Skin: warm, normal color Discharge diagnosis: Encephalopathy secondary to hyperosmolar hyperglycemic syndrome Time Spent with Patient Time attestation: Total time spent providing and/or coordinating discharge services: EXAM Constitutional Vitals: Temp Pulse Resp BP Pulse Ox 98.0 F 99 H 18 154/86 96 07/15/21 06:51 07/15/21 06:51 07/15/21 06:51 07/15/21 06:51 07/15/21 06:51 Discharge Data Data Completed and Pending Labs on day of discharge: Labs from last 24 hours 07/15/21 07/15/21 07/15/21 04:53 04:52 04:52 WBC 7.4 RBC 3.03 L Hgb 9.3 L Hct 27.3 L MCV 90.1 MCH 30.7 MCHC 34.1 RDW 13.6 Plt Count 191 MPV 10.6 H Neut % (Auto) 56.3 Lymph % (Auto) 28.1 [place] % (Auto) 7.9 Eos % (Auto) 6.8 Baso % (Auto) 0.9 Lymph # (Auto) 2.07 [place] # (Auto) 0.58 Eos # (Auto) 0.50 Baso # (Auto) 0.07 Absolute Neutrophils 4.15 Sodium 135 Potassium 2.8 L* Chloride 95 L Carbon Dioxide 20 L Anion Gap 20.0 H BUN 63 H Creatinine 9.0 H* GFR Calculation 6 Glucose 175 H Uric Acid 10.6 H Calcium 8.6 Phosphorus 7.8 H* Magnesium 2.3 Total Bilirubin < 0.2 Direct Bilirubin < 0.2 GGT 76 H AST 23 ALT 23 Alkaline Phosphatase 109 Lactate Dehydrogenase 313 H Total Protein 5.7 L Albumin 2.7 L Globulin 3.0 Albumin/Globulin Ratio 0.9 L Triglycerides > 916 H PTH Related Protein Pending Preliminary micro results at discharge 07/12/21 23:30 Blood Culture - Preliminary Blood 07/12/21 23:25 Blood Culture - Preliminary Blood 07/12/21 20:58 Urine Culture - Preliminary Urine - Clean Void Mid-Stream 07/13/21 07:03 Gram Stain - Preliminary Peritoneal Fluid Body Fluid Culture - Preliminary Discharge Plan Patient/Caregiver Discharge Instructions Activity: increase activity as tolerated Diet: Renal/Consistent Carbs Prescriptions: Continued doxazosin 8 mg tablet 8 mg PO QHS Qty: 60 11RF Rx Instructions: new dose amitriptyline 50 mg tablet 50 mg PO QHS Qty: 30 11RF gentamicin 0.1 % ointment 1 applic topical QDAY Qty: 30 11RF carvedilol 25 mg tablet 25 mg PO QHS Qty: 120 11RF furosemide 80 mg tablet 160 mg PO BID Qty: 180 3RF Toujeo Max U-300 SoloStar 300 unit/mL (3 mL) insulin pen 140 unit SUB-Q QHS 0RF Rx Instructions: 120 units subcutaneously (300 units/mL solution) once (at bedtime) aspirin [Adult Low Dose Aspirin] 81 mg tablet,delayed release (DR/EC) 81 mg PO QDAY Qty: 100 0RF tramadol 50 mg tablet 50 mg PO BID PRN (Reason: pain) Qty: 30 0RF Auryxia 210 mg iron tablet 420 mg PO .COMPLEX Qty: 180 11RF Rx Instructions: 420 mg PO TID with meals; administer with a meal atorvastatin 80 mg tablet 80 mg PO QDAY Qty: 90 3RF lancets MISCELLANE 0RF cinacalcet 60 mg tablet 60 mg PO QDAY Qty: 90 3RF Humalog KwikPen Insulin 200 unit/mL (3 mL) insulin pen 30 unit SUB-Q .TID with meals 0RF Rx Instructions: 20units subcutaneously (100 units/mL solution) 3 times a day with meals Other Ambulatory Orders: Physical Therapy at Discharge - General (Routine) Location: None Selected Ordered By: Marco Ford Follow Up Plan Follow up with: Delmi Carey ARNP [Primary Care Provider] - 07/22/21 3:00 pm Jeremiah Oneil MD [Physician] - Patient Disposition: Home Health Service Prognosis: Fair Overall status at discharge: patient is progressing back to baseline Discharge Orders: Discharge Order (Routine); Ordered 07/15/21 Ordered By: Marco Ford QUALITY VTE Deep Vein Thrombosis/Pulmonary Embolism Present on Admission: No
== END 2021-07-15 13:30 | disposition home health service (06) | DRG 637 ==
LOC: ED 17:44 → ICU 07-13 02:32
PROVIDERS: ADMIT Internal Medicine; ATTEND Internal Medicine

== ENCOUNTER 2021-09-06 18:05 | Inpatient (IN) ==
[2021-09-06 18:22] LABS: POC Calcium, Ionized 1.09 (1.16-1.32); POC Creatinine 16.1 (0.6-1.2); POC Potassium 3.9 (3.3-5.1)
--- NOTE | 2021-09-06 18:52 | Emergency Department Note ---
HPI General Chief complaint: Weakness Stated complaint: high blood sugar, fall Time Seen by Provider: 09/06/21 18:09 Source: family Mode of arrival: wheelchair Limitations: altered mental status History of Present Illness HPI Narrative: Narrative: 51 yo M w/ h/o DM2, ESRD on PD, HTN, p/w ALOC and abnormal blood sugar. Hx is entirely from his as he is drowsy and will answer questions but only briefly. Per his he had been sneaking candy all morning, and she found that his BSL was in the 400s. She began Tx'ing this around noon w/ doses of short acting insulin. Over the span of 4 hours she gave about 120 units SQ insulin short acting and was only able to get the BSL down to the 300s. At that point she was able to convince him to come to the hospital. While she was preparing for this in another room, he went to the bathroom but fell. She heard a crash and immediately came to him and found him awake and alert, c/o B/L knee pain. However that has been a chronic issue. It appears that he fell backwards and not onto his knees. Additionally, he has not been eating or drinking much today since the candy. This is all occurring in the context of a progressive decline in his memory and mental clarity for the past several months, along w/ multiple recent falls that she attributes to weakness. Additionally, his peritoneal fluid has recently become cloudy raising concern for SBP. Otherwise he has not had F/C, CP/SOB, N/V/D, or other Sx. Related Data Home Medications Medication Instructions Recorded Confirmed lancets MISCELLANE 04/26/15 10/22/20 insulin lispro 200 unit/mL (3 mL) 30 unit SUB-Q .TID with meals 01/06/21 subcutaneous pen (Humalog KwikPen U-200 Insulin) insulin glargine U-300 conc 300 140 unit SUB-Q QHS ml 04/03/21 unit/mL (3 mL) subcutaneous pen (Toujeo Max U-300 SoloStar) Previous Rx's Medication Instructions Recorded doxazosin 8 mg tablet 8 mg PO QHS #60 tab 09/04/20 amitriptyline 50 mg tablet 50 mg PO QHS #30 tab 10/27/20 gentamicin 0.1 % topical ointment 1 applic TOPICAL QDAY #30 g 11/21/20 aspirin 81 mg tablet,delayed 81 mg PO QDAY #100 tab 04/03/21 release (Adult Low Dose Aspirin) carvedilol 25 mg tablet 25 mg PO QHS #120 tab 04/03/21 furosemide 80 mg tablet 160 mg PO BID #180 tab 04/03/21 tramadol 50 mg tablet 50 mg PO BID PRN #30 tab 04/17/21 atorvastatin 80 mg tablet 80 mg PO QDAY #90 tab 06/27/21 cinacalcet 60 mg tablet 60 mg PO QDAY #90 tab 07/09/21 compr.stocking,knee,long,small #24 ea 07/15/21 (T.E.D. Knee [id number]) ferric citrate 210 mg iron tablet 420 mg PO .COMPLEX #300 tab 09/03/21 Allergies Allergy/AdvReac Type Severity Reaction Status Date / Time No Known Drug Allergies Allergy Verified 09/06/21 21:26 Review of Systems ROS ROS Narrative: Narrative: All systems ED: reviewed and negative except as stated. PFSH Narrative Patient History Narrative: Narrative: Medical/Surgical/Family History All Active Problems (Updated 09/07/21 @ 02:16 by Koko Machado MD) Edema (Chronic) Diabetes mellitus, type II (Chronic) Essential hypertension, benign (Chronic) Mixed hyperlipidemia (Chronic) CKD (chronic kidney disease), stage IV (Chronic) Hypertensive renal disease (Chronic) Hyperparathyroidism due to renal insufficiency (Chronic) Proteinuria (Chronic) Gout due to renal impairment (Chronic) Anemia due to stage 4 chronic kidney disease (Chronic) CKD stage G5/A3, GFR <15 and albumin creatinine ratio >300 mg/g (Chronic) CKD (chronic kidney disease) stage 5, GFR less than 15 ml/min (Chronic) Accelerated hypertension (Chronic) Nephrotic range proteinuria (Chronic) Anemia due to stage 5 chronic kidney disease treated with darbepoetin (Chronic) Iron deficiency anemia due to chronic blood loss (Acute) ESRD on peritoneal dialysis (Chronic) Diabetic peripheral neuropathy (Acute) Peritonitis associated with peritoneal dialysis (Acute) Peritonitis, spontaneous bacterial (Acute) Uncontrolled diabetes mellitus with ESRD (end-stage renal disease) (Chronic) Hypoglycemia unawareness associated with type 2 diabetes mellitus (Acute) Leg pain (Acute) Hyperglycemia (Acute) Altered mental status (Acute) Type 2 diabetes mellitus with end-stage renal disease (Acute) Hypertension due to end stage renal disease on dialysis (Chronic) Obesity (BMI 30-39.9) (Acute) Anemia in end-stage renal disease (Acute) Mixed dyslipidemia (Acute) Delirium (Acute) SBP (spontaneous bacterial peritonitis) (Acute) Hyperphosphatemia (Acute) Fall (Acute) Acute bacterial peritonitis (Acute) Fall (Acute) Acute delirium (Acute) Medical History Accelerated hypertension Refractory to beta-blockers high-dose ARB, high-dose alpha-1 antagonist and loop diuretic Did respond to minoxidil but developed side effects and doses above 5 mg twice daily Anemia due to stage 4 chronic kidney disease HgB 8-9 gm/dl so monitoring, low Fe so increased Fe replacement to 65 mg BID BP too high for SANTOS CKD (chronic kidney disease) stage 5, GFR less than 15 ml/min With nephrotic range proteinuria in the setting of diabetes and accelerated hypertension CKD (chronic kidney disease), stage IV DM +/- HTN with nonnephrotic proteinuria CKD stage G5/A3, GFR <15 and albumin creatinine ratio >300 mg/g Seems to be primarily diabetic nephropathy with hypertensive renal disease Decreased proteinuria to <3 gm/day but too little, to late Chose PD so will arrange PD catheter and training to follow Diabetes mellitus, type II Urine Prot/Cr 1.5 but GFR makes ARB therapy controversial Hemoglobin A1c 7.5% in January 2019 Edema Essential hypertension, benign Avoiding ACEi and ARB due to GFR Gout due to renal impairment Uric acid elevated on 150 mg/day allopurinol. GFR <20, lasix and metolizone likely cause Hyperparathyroidism due to renal insufficiency PTH 150-300 range Hypertensive renal disease Goal blood pressure is 140/90 Valsartan, Minoxidil, carvedilol, doxazosin, furosemide and prn metolazone Mixed hyperlipidemia Nephrotic range proteinuria This is gone up from 1.5 g to 4 g per 24 hours in the setting of uncontrolled hypertension He is on maximal dose losartan Proteinuria This is evidence of diabetic nephropathy Surgical History History of umbilical hernia repair (10/13/19) with mesh and laparoscopic PD catheter placement. Family History Mother Malignant neoplasm Father Coronary artery disease Diabetes mellitus Hypertension Sister Diabetes mellitus Social History Smoking Status: Never smoker Alcohol Intake Frequency: holiday/special occasion only Substance Use: does not use Exam General Limitations: altered mental status General appearance: Present in no apparent distress and other (drowsy but arousable) Head Head: Present atraumatic and normocephalic Eye Eye: Present normal appearance ENT ENT: Present mucous membranes dry and other (tongue discolored purple from candy ) Neck Neck: Present normal inspection; Absent tenderness Chest Chest: Present normal inspection and symmetric chest wall rise Respiratory Respiratory: Present normal lung sounds bilaterally; Absent respiratory distress, accessory muscle use or decreased breath sounds Cardiovascular Cardiovascular: Present regular rate, normal rhythm, +S1, +S2 and other (2+ B/L radial pulses); Absent systolic murmur or diastolic murmur Adbominal Abdominal: Present soft, normal bowel sounds and other (blood sugar monitor in place. PD cath in place C/D/I); Absent distention or tenderness Extremities Extremities: Present other (able to flex/extend B/L knees, no TTP, no erythema, abrasion/laceration, effusion); Absent pedal edema Neurological Neurological: Present other (NIHSS 10. Arouses to minor stim, age but not month, blinks and squeezes, EOMI, unable to test visual tirado, no facial droop/tongue deviation, all 4 ext drift and hit bed, no ataxia but kept eyes open, intact sensation, no dysarthria, aphasia or extinction. Exam lt'd by difficulty following commands) Psychiatric Psychiatric: Present normal affect Skin Skin: Present warm (WNL) and dry Course Vital Signs Vital signs: Vital Signs Pulse Rate 113 H 09/06/21 18:08 Respiratory Rate 20 09/06/21 18:08 Blood Pressure 131/67 09/06/21 18:08 Pulse Oximetry (%) 97 09/06/21 18:08 Pulse Rate 113 H 09/06/21 18:08 Respiratory Rate 18 09/07/21 01:08 Blood Pressure 164/79 09/07/21 01:01 Pulse Oximetry (%) 97 09/06/21 18:08 MDM MDM Narrative Medical decision making narrative: 51 yo M w/ h/o DM2, ESRD on PD, HTN, p/w ALOC and abnormal blood sugar. DDx - traumatic injury, CVA, DKA/HHS, metabolic/electrolyte d/o, infectious process, dementia Pt presented stable, nontoxic. He was somewhat altered but w/ no threat to his airway. I did complete an NIHSS and results showed difficult following commands and generalized weakness, CVA was clinically unlikely. I checked CT head and C spine and saw no evidence of serious traumatic injury. There was nothing from the Hx or exam to suggest injury to the trunk or extremities. While his blood sugar was elevated at home it had dropped to the 170s on arrival here and continued to drop to a low of 70. We Tx'd this w/ PO intake which he tolerated well. His labs were notable for an anion gap, ketones, but normal pH. Given that he had already taken a significant amount of insulin at home and was requiring PO intake to maintain his blood sugar, I did not initiate DKA protocol and instead Tx'd w/ a 500ml NS bolus. DKA/HHS were not clinically present. There was concern for bacterial peritonitis and therefore I sent off analysis of his peritoneal fluid, and this showed elevated neutrophils suggesting an infection was indeed present. I started him on vanc and zosyn for broad spectrum coverage. Lactate came back at 2.0 but w/ stable vitals, no leukocytosis, no fever, I did not feel that sepsis was likely. Given the presence of PD cath bacterial peritonitis along w/ labile blood sugar I d/w the hospitalist who accepted him for admission. Lab Data Lab results reviewed: Yes I reviewed the patient's lab results. Result diagrams: 09/06/21 19:00 09/06/21 19:00 Labs: Lab Results 09/06/21 09/06/21 09/06/21 Range/Units 18:18 18:20 19:00 WBC 11.1 H (4.5-11.0) K/mcL RBC 2.72 L (4.63-6.08) M/mcL Hgb 8.1 L (13.7-17.5) g/dL Hct 25.4 L (40.1-51.0) % POC Hct 23.0 L (41-55) MCV 93.4 (80.0-100.0) fL MCH 29.8 (26.0-34.0) pg MCHC 31.9 (31.0-36.0) g/dL RDW 14.9 H (11.5-14.5) % Plt Count 228 (140-440) K/mcL MPV 9.4 (7.4-10.4) fL Neut % (Auto) 77.1 (38.0-78.0) % Lymph % (Auto) 12.2 L (15.5-49.0) % Mclennan % (Auto) 5.9 (1.0-12.0) % Eos % (Auto) 4.3 (0.0-7.0) % Baso % (Auto) 0.5 (0.0-2.0) % Lymph # (Auto) 1.35 L (1.50-4.80) K/mcL Mclennan # (Auto) 0.65 (0.10-0.90) K/mcL Eos # (Auto) 0.48 (0.00-0.70) K/mcL Baso # (Auto) 0.06 (0.00-0.30) K/mcL Absolute Neutrophils 8.54 H (1.80-8.00) K/mcL POC VBG pH 7.41 (7.32-7.42) POC VBG pCO2 at Temp 37.3 L (41-51) POC VBG pO2 37 (25-40) POC VBG HCO3 23.5 L (24-28) POC VBG Total CO2 25.0 (25-29) POC Venous O2 Sat 71.0 H (40-70) POC VBG Base Excess -1.0 (-2-2) POC Sodium 137 (133-145) Sodium (133-145) mmol/L POC Potassium 3.9 (3.3-5.1) Potassium (3.3-5.1) mmol/L POC Chloride 100 (96-108) Chloride (96-108) mmol/L Carbon Dioxide (22-30) mmol/L POC Total CO2 22.0 (22-30) Anion Gap (8.0-16.0) POC BUN 70 H (6-20) BUN (6-20) mg/dL Creatinine (0.7-1.2) mg/dL POC Creatinine 16.1 H* (0.6-1.2) GFR Calculation Glucose (70-105) mg/dL POC Glucose 184 H (70-105) POC Venous Lactate 2.0 (0.5-2) Calcium (8.6-10.4) mg/dL POC WB Ioniz Calcium 1.09 L (1.16-1.32) Total Bilirubin (0.1-1.0) mg/dL AST (<40) U/L ALT (<40) U/L Alkaline Phosphatase (39-117) U/L Total Protein (5.9-8.4) gm/dL Albumin (3.2-5.2) gm/dL Globulin (2.2-3.7) gm/dL Albumin/Globulin Ratio (1.0-2.3) Beta-Hydroxybutyrate (<0.27) mmol/L Peritoneal Source Peritoneal Color Peritoneal Appearance Peritoneal RBC /cumm Periton Nuc Cells /cumm Periton Neutrophils % Periton Lymphocytes % Peritoneal Monocytes % Peritoneal Tot Protein gm/dL Peritoneal LDH U/L Peritoneal Glucose mg/dL 09/06/21 09/06/21 Range/Units 19:00 19:10 WBC (4.5-11.0) K/mcL RBC (4.63-6.08) M/mcL Hgb (13.7-17.5) g/dL Hct (40.1-51.0) % POC Hct (41-55) MCV (80.0-100.0) fL MCH (26.0-34.0) pg MCHC (31.0-36.0) g/dL RDW (11.5-14.5) % Plt Count (140-440) K/mcL MPV (7.4-10.4) fL Neut % (Auto) (38.0-78.0) % Lymph % (Auto) (15.5-49.0) % Mclennan % (Auto) (1.0-12.0) % Eos % (Auto) (0.0-7.0) % Baso % (Auto) (0.0-2.0) % Lymph # (Auto) (1.50-4.80) K/mcL Mclennan # (Auto) (0.10-0.90) K/mcL Eos # (Auto) (0.00-0.70) K/mcL Baso # (Auto) (0.00-0.30) K/mcL Absolute Neutrophils (1.80-8.00) K/mcL POC VBG pH (7.32-7.42) POC VBG pCO2 at Temp (41-51) POC VBG pO2 (25-40) POC VBG HCO3 (24-28) POC VBG Total CO2 (25-29) POC Venous O2 Sat (40-70) POC VBG Base Excess (-2-2) POC Sodium (133-145) Sodium 137 (133-145) mmol/L POC Potassium (3.3-5.1) Potassium 3.8 (3.3-5.1) mmol/L POC Chloride (96-108) Chloride 93 L (96-108) mmol/L Carbon Dioxide 20 L (22-30) mmol/L POC Total CO2 (22-30) Anion Gap 24.0 H (8.0-16.0) POC BUN (6-20) BUN 64 H (6-20) mg/dL Creatinine 13.6 H* (0.7-1.2) mg/dL POC Creatinine (0.6-1.2) GFR Calculation 4 Glucose 127 H (70-105) mg/dL POC Glucose (70-105) POC Venous Lactate (0.5-2) Calcium 9.7 (8.6-10.4) mg/dL POC WB Ioniz Calcium (1.16-1.32) Total Bilirubin 0.2 (0.1-1.0) mg/dL AST 8 (<40) U/L ALT 15 (<40) U/L Alkaline Phosphatase 217 H (39-117) U/L Total Protein 7.2 (5.9-8.4) gm/dL Albumin 3.7 (3.2-5.2) gm/dL Globulin 3.5 (2.2-3.7) gm/dL Albumin/Globulin Ratio 1.1 (1.0-2.3) Beta-Hydroxybutyrate 0.46 H (<0.27) mmol/L Peritoneal Source Peritoneal Peritoneal Color Straw Peritoneal Appearance Clear Peritoneal RBC <50,000 /cumm Periton Nuc Cells 1903 /cumm Periton Neutrophils 86 % Periton Lymphocytes 2 % Peritoneal Monocytes 12 % Peritoneal Tot Protein < 0.2 gm/dL Peritoneal LDH 18 U/L Peritoneal Glucose 1087 mg/dL CC TIME Critical Care Time Attestation: Approximately 35 minutes of critical care time was used in order to assess and manage the high probability of imminent or life threatening deterioration to cardiovascular system, endocrine system which required my highest level of preparedness and interventions with frequent patient assessments. This time is excluding time spent on separately billable procedures. Discharge Plan Patient/Caregiver Discharge Instructions Pt seen by RESEARCH NUTRITIONIST/PA only: No Clinical Impression: Acute bacterial peritonitis, ESRD on peritoneal dialysis, Diabetes mellitus, type II, Uncontrolled diabetes mellitus with ESRD (end-stage renal disease), Fall, Acute delirium Patient Disposition: Xfer As Inpt ([facility]) Follow up with: Delmi Carey ARNP [Primary Care Provider] - Prescriptions: No Action doxazosin 8 mg tablet 8 mg PO QHS Qty: 60 11RF Rx Instructions: new dose amitriptyline 50 mg tablet 50 mg PO QHS Qty: 30 11RF gentamicin 0.1 % ointment 1 applic topical QDAY Qty: 30 11RF carvedilol 25 mg tablet 25 mg PO QHS Qty: 120 11RF furosemide 80 mg tablet 160 mg PO BID Qty: 180 3RF Toujeo Max U-300 SoloStar 300 unit/mL (3 mL) insulin pen 140 unit SUB-Q QHS 0RF Rx Instructions: 120 units subcutaneously (300 units/mL solution) once (at bedtime) aspirin [Adult Low Dose Aspirin] 81 mg tablet,delayed release (DR/EC) 81 mg PO QDAY Qty: 100 0RF tramadol 50 mg tablet 50 mg PO BID PRN (Reason: pain) Qty: 30 0RF atorvastatin 80 mg tablet 80 mg PO QDAY Qty: 90 3RF ferric citrate 210 mg iron tablet 420 mg PO .COMPLEX Qty: 300 12RF Rx Instructions: 420 mg PO TID with meals and 1 po with snack; administer with a meal lancets MISCELLANE 0RF cinacalcet 60 mg tablet 60 mg PO QDAY Qty: 90 3RF Humalog KwikPen Insulin 200 unit/mL (3 mL) insulin pen 30 unit SUB-Q .TID with meals 0RF Rx Instructions: 20units subcutaneously (100 units/mL solution) 3 times a day with meals (DME) T.E.D. Knee Vcgbln-A-Qyme Misc See Rx Instructions .Route Qty: 24 0RF Rx Instructions: As directed
[2021-09-06] MEDS ORDERED: 0.9 % SODIUM CHLORIDE 1,000 ML IV ONE (19:02)
[2021-09-06 19:35] LABS: Basophils # (Auto) 0.06 K/mcL (0.00-0.30); Basophils % (Auto) 0.5 % (0.0-2.0); Eosinophils # (Auto) 0.48 K/mcL (0.00-0.70); Eosinophils % (Auto) 4.3 % (0.0-7.0); Hematocrit 25.4 % (40.1-51.0); Hemoglobin 8.1 g/dL (13.7-17.5); Lymphocytes # (Auto) 1.35 K/mcL (1.50-4.80); Lymphocytes % (Auto) 12.2 % (15.5-49.0); Mean Cell Volume 93.4 fL (80.0-100.0); Mean Corpuscular HGB Conc 31.9 g/dL (31.0-36.0); Mean Platelet Volume 9.4 fL (7.4-10.4); Monocytes # (Auto) 0.65 K/mcL (0.10-0.90); Monocytes % (Auto) 5.9 % (1.0-12.0); Neutrophils % (Auto) 77.1 % (38.0-78.0); Platelet Count 228 K/mcL (140-440); RBC 2.72 M/mcL (4.63-6.08); Red Cell Distribution Width 14.9 % (11.5-14.5); WBC 11.1 K/mcL (4.5-11.0)
[2021-09-06] MEDS ORDERED: 0.9 % SODIUM CHLORIDE 500 ML IV ONE (19:35)
[2021-09-06 19:53] LABS: Beta Hydroxybutyrate 0.46 mmol/L (<0.27)
[2021-09-06 20:00] LABS: ALT/SGPT 15 U/L (<40); AST/SGOT 8 U/L (<40); Albumin 3.7 gm/dL (3.2-5.2); Albumin/Globulin Ratio 1.1 (1.0-2.3); Alkaline Phosphatase 217 U/L (39-117); Bilirubin,Total 0.2 mg/dL (0.1-1.0); Blood Urea Nitrogen 64 mg/dL (6-20); Calcium 9.7 mg/dL (8.6-10.4); Carbon Dioxide 20 mmol/L (22-30); Chloride 93 mmol/L (96-108); Globulin 3.5 gm/dL (2.2-3.7); Glomerular Filtration Rate 4; Glucose 127 mg/dL (70-105)
[2021-09-06 20:58] LABS: Monocyte,Peritoneal Fluid 12 %; Neutrophils,Peritoneal Fluid 86 %; Nucleated Cel,Peritoneal Fluid 1903 /cumm; RBC,Peritoneal Fluid <50,000 /cumm
[2021-09-06 22:16] LABS: LDH,Peritoneal Fluid 18 U/L; Total Protein,Peritoneal Fluid < 0.2 gm/dL
[2021-09-06 22:24] LABS: Glucose,Peritoneal Fluid 1087 mg/dL
[2021-09-06] MEDS ORDERED: VANCOMYCIN 1,500 MG in 0.9 % SODIUM CHLORIDE 500 ML IV ONE (22:59)
[2021-09-06] MEDS ORDERED: PIPERACILLIN SODIUM/TAZOBACTAM 3.375 GM in DEXTROSE 5% IN WATER 50 ML IV ONE (22:59)
[2021-09-07] MEDS ORDERED: DEXTROSE 31 GM ORAL.SUSP PO PRN (01:14)
[2021-09-07] MEDS ORDERED: DEXTROSE 50% 50 ML VIAL IV PRN (01:14)
[2021-09-07] MEDS: INSULIN LISPRO 1 UNIT/0.01 ML UNIT SQ SCH ×10 (03:00→22:20)
--- NOTE | 2021-09-07 03:19 | Cat Scan Report ---
CLINICAL INFORMATION: Trauma COMPARISON: TECHNIQUE: 2.5 mm helical slices were obtained in the skull base to vertex. Following reconstruction, axial reformatted images were reviewed at bone and parenchymal windows. The exam was performed using radiation dose optimization techniques including, but not limited to, automated exposure control, adjustment of the mA and/or kV according to patient size and use of iterative reconstruction technique. FINDINGS: The ventricles, sulci, fissures, and cisterns are symmetrically enlarged compatible with moderate age-related atrophy. No extra-axial fluid collections are identified. Moderate patchy chronic ischemic changes, in the deep cerebral white matter, are expected for age. Multiple chronic infarcts are described in the impression. There is no hemorrhage, mass effect, or edema. Bone windows show fluid within all of the right mastoid air cells with sclerotic thickening of the bones about chronic right mastoiditis. IMPRESSION: Moderate atrophy and chronic ischemic changes in the deep cerebral white matter-much greater than expected for patient's age of 51. No hemorrhage or other acute process.. Two moderate old cortical-based infarcts in the left frontal lobe near vertex, small remote cortical-based infarct right frontal lobe near vertex, moderate old cortical based infarct inferior left frontal lobe, small old cortical-based infarct left anterior temporal lobe 10 mm remote lacunar infarct deep right frontal white matter, 5 mm old lacunar infarct left lentiform nucleus and moderate old infarct inferior left cerebellum. Chronic right mastoiditis Interpreted and Authenticated by: Tejinder Ruiz 09/07/21
--- NOTE | 2021-09-07 03:46 | Cat Scan Report ---
CLINICAL INFORMATION: Trauma COMPARISON: None. TECHNIQUE: 0.625 mm helical slices were obtained from the skull base through the superior T2 end plate, and following reconstruction, 2.5 mm sagittal, coronal and axial reformations were then processed. The exam was reviewed at bone and soft tissue windows. The exam was performed using radiation dose optimization techniques including, but not limited to, automated exposure control, adjustment of the mA and/or kV according to patient size and use of iterative reconstruction technique. FINDINGS: Sagittal and coronal reformatted images show the cervical spine is anatomically aligned. No fracture is identified. A 1.6 x 2.8 cm osseous lesion with groundglass matrix has replaced the left C2 pedicle, superior and inferior facets left lamina extension. It also encroaches on the left IV foramen resulting in severe narrowing and impingement of the exiting left C3 nerve root. 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 No other osseous abnormalities. Soft tissues are normal. The C2-3 disc shows mild protrusion with minimal impingement on anterior thecal sac. The C3-4 disc level is normal At C4-5, mild broad disc spur complex with right-sided asymmetry facet arthropathy results in mild central canal and moderate right IV foraminal narrowing. There is probable impingement of the exiting right C5 nerve root At C5-6, mild broad disc protrusion results in minimal central canal and mild bilateral IV foraminal narrowing. At C6-7, mild broad disc protrusion results in mild central canal and mild IV foraminal narrowing. At C7-T1 mild broad disc protrusion results in mild central canal narrowing. IMPRESSION: 1. No fracture or acute posttraumatic change. 2. 2.8 x 1.6 cm osseous lesion with groundglass matrix has replaced the left C2 pedicle, superior and inferior facets with laminar extension. It encroaches on the left IV foramen resulting in severe narrowing and probable impingement of exiting left C3 nerve root. 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 3. Mild multifocal degeneration Interpreted and Authenticated by: Tejinder Ruiz 09/07/21
[2021-09-07 06:17] LABS: Basophils # (Auto) 0.06 K/mcL (0.00-0.30); Basophils % (Auto) 0.7 % (0.0-2.0); Eosinophils # (Auto) 0.56 K/mcL (0.00-0.70); Eosinophils % (Auto) 6.1 % (0.0-7.0); Hematocrit 24.8 % (40.1-51.0); Hemoglobin 7.5 g/dL (13.7-17.5); Lymphocytes # (Auto) 1.44 K/mcL (1.50-4.80); Lymphocytes % (Auto) 15.7 % (15.5-49.0); Mean Corpuscular HGB Conc 30.2 g/dL (31.0-36.0); Mean Platelet Volume 9.4 fL (7.4-10.4); Monocytes # (Auto) 0.73 K/mcL (0.10-0.90); Monocytes % (Auto) 7.9 % (1.0-12.0); Neutrophils % (Auto) 69.6 % (38.0-78.0); Platelet Count 184 K/mcL (140-440); RBC 2.48 M/mcL (4.63-6.08); Red Cell Distribution Width 14.9 % (11.5-14.5); WBC 9.2 K/mcL (4.5-11.0)
[2021-09-07 06:36] LABS: ALT/SGPT 12 U/L (<40); AST/SGOT 8 U/L (<40); Albumin/Globulin Ratio 0.9 (1.0-2.3); Alkaline Phosphatase 177 U/L (39-117); Bilirubin,Total 0.2 mg/dL (0.1-1.0); Blood Urea Nitrogen 63 mg/dL (6-20); Calcium 9.1 mg/dL (8.6-10.4); Carbon Dioxide 19 mmol/L (22-30); Chloride 97 mmol/L (96-108); Globulin 3.2 gm/dL (2.2-3.7); Glomerular Filtration Rate 4; Glucose 82 mg/dL (70-105)
[2021-09-07] MEDS ORDERED: VANCOMYCIN PER PHARMACY IV SCH (07:04)
[2021-09-07] MEDS ORDERED: traMADol (PP) 50 MG TABLET (#4) PO PRN (07:05)
[2021-09-07] MEDS ORDERED: PIPERACILLIN SODIUM/TAZOBACTAM 2.25 GM in DEXTROSE 5% IN WATER 50 ML IV SCH (07:15)
--- NOTE | 2021-09-07 07:15 | Internal Med History&Physical ---
HPI History of Present Illness Patient information: Note initiated : 09/07/21 at 7:13 am Service Date, if different from initiated Date: [] Patient: Herman Hall 51 y/o M admitted on 09/07/21 for high blood sugar, fall. Chief Complaint: [] History of present illness: Mr. Hall is a 51 year old male with a history of hypertension, type 2 diabetes mellitus, prior stroke, ESRD on peritoneal dialysis, cognitive impairment, obesity who presented to the ED with his after experiencing multiple falls at home and having elevated blood sugars that was difficult to control with subcutaneous bolus insulin. Prior to this, the patient had been confused and had multiple falls. He injured his right upper arm with some bruising present. The patient was resistant to go to the ED however after a fall his insisted on calling EMS and the patient was brought to the ED. In the ED, the patient was found to be confused and had a white count. Peritoneal fluid was collected by the patient's , fluid analysis was consistent with bacterial peritonitis. The patient was started on broad-spectrum antibiotics. A CT head without contrast did not show any acute changes, a CT of the cervical spine did not show any acute fracture or post traumatic changes. The patient was admitted for hyperglycemia and concern for sepsis secondary to bacterial peritonitis. Hyperglycemia resolved after multiple doses of subcutaneous insulin at home prior to the ED visit. The patient received IV fluid and broad spectrum antibiotics. Lactic acid was 2.0 Review of systems Constitutional: Positive for fatigue, no fevers Eyes: no vision changes or pain Cardiovascular: no chest pain, no palpitations Respiratory: no cough or dyspnea Gastrointestinal: Peritoneal dialysis catheter present, no abdominal pain, no nausea, vomiting, or diarrhea Genitourinary: no dysuria or difficulty voiding Musculoskeletal: no arthralgia or myalgia Integumentary: Bilateral lower extremity edema, right greater than left, no skin lesion or wound Neurological: no focal weakness or numbness Psychiatric: no anxiety or depression Physical exam General: Morbidly obese male in no apparent distress. Head: Atraumatic, normal inspection. Eyes: normal appearance, no scleral icterus. Neck: full ROM Respiratory: no respiratory distress. Cardiovascular: normal rate and rhythm, S1, S2. GI/Abdominal: Distended abdomen, peritoneal hemodialysis present, soft, nontender, no guarding. Extremities: Bilateral lower extremity edema, right greater than left, full range of motion, nontender. Neurological: CN II-XII intact, intact motor, intact sensation. Psychiatric: normal mood. Skin: warm, normal color PFSH PFSH All Active Problems (Updated 09/07/21 @ 02:16 by Koko Machado MD) Edema (Chronic) Diabetes mellitus, type II (Chronic) Essential hypertension, benign (Chronic) Mixed hyperlipidemia (Chronic) CKD (chronic kidney disease), stage IV (Chronic) Hypertensive renal disease (Chronic) Hyperparathyroidism due to renal insufficiency (Chronic) Proteinuria (Chronic) Gout due to renal impairment (Chronic) Anemia due to stage 4 chronic kidney disease (Chronic) CKD stage G5/A3, GFR <15 and albumin creatinine ratio >300 mg/g (Chronic) CKD (chronic kidney disease) stage 5, GFR less than 15 ml/min (Chronic) Accelerated hypertension (Chronic) Nephrotic range proteinuria (Chronic) Anemia due to stage 5 chronic kidney disease treated with darbepoetin (Chronic) Iron deficiency anemia due to chronic blood loss (Acute) ESRD on peritoneal dialysis (Chronic) Diabetic peripheral neuropathy (Acute) Peritonitis associated with peritoneal dialysis (Acute) Peritonitis, spontaneous bacterial (Acute) Uncontrolled diabetes mellitus with ESRD (end-stage renal disease) (Chronic) Hypoglycemia unawareness associated with type 2 diabetes mellitus (Acute) Leg pain (Acute) Hyperglycemia (Acute) Altered mental status (Acute) Type 2 diabetes mellitus with end-stage renal disease (Acute) Hypertension due to end stage renal disease on dialysis (Chronic) Obesity (BMI 30-39.9) (Acute) Anemia in end-stage renal disease (Acute) Mixed dyslipidemia (Acute) Delirium (Acute) SBP (spontaneous bacterial peritonitis) (Acute) Hyperphosphatemia (Acute) Fall (Acute) Acute bacterial peritonitis (Acute) Fall (Acute) Acute delirium (Acute) Medical History Accelerated hypertension Refractory to beta-blockers high-dose ARB, high-dose alpha-1 antagonist and loop diuretic Did respond to minoxidil but developed side effects and doses above 5 mg twice daily Anemia due to stage 4 chronic kidney disease HgB 8-9 gm/dl so monitoring, low Fe so increased Fe replacement to 65 mg BID BP too high for SANTOS CKD (chronic kidney disease) stage 5, GFR less than 15 ml/min With nephrotic range proteinuria in the setting of diabetes and accelerated hypertension CKD (chronic kidney disease), stage IV DM +/- HTN with nonnephrotic proteinuria CKD stage G5/A3, GFR <15 and albumin creatinine ratio >300 mg/g Seems to be primarily diabetic nephropathy with hypertensive renal disease Decreased proteinuria to <3 gm/day but too little, to late Chose PD so will arrange PD catheter and training to follow Diabetes mellitus, type II Urine Prot/Cr 1.5 but GFR makes ARB therapy controversial Hemoglobin A1c 7.5% in January 2019 Edema Essential hypertension, benign Avoiding ACEi and ARB due to GFR Gout due to renal impairment Uric acid elevated on 150 mg/day allopurinol. GFR <20, lasix and metolizone likely cause Hyperparathyroidism due to renal insufficiency PTH 150-300 range Hypertensive renal disease Goal blood pressure is 140/90 Valsartan, Minoxidil, carvedilol, doxazosin, furosemide and prn metolazone Mixed hyperlipidemia Nephrotic range proteinuria This is gone up from 1.5 g to 4 g per 24 hours in the setting of uncontrolled hypertension He is on maximal dose losartan Proteinuria This is evidence of diabetic nephropathy Surgical History History of umbilical hernia repair (10/13/19) with mesh and laparoscopic PD catheter placement. Family History Mother Malignant neoplasm Father Coronary artery disease Diabetes mellitus Hypertension Sister Diabetes mellitus Social History (Updated 09/28/19 @ 12:39 by Coleman Butts MD) marital status: occupational status: employed physical activity: none alcohol intake frequency: holiday/special occasion only substance use type: does not use MEDS/ALLERGIES Home Medications and Allergies Home Medications Medication Instructions Recorded Confirmed Type lancets MISCELLANE 04/26/15 10/22/20 History doxazosin 8 mg tablet 8 mg PO QHS #60 tab 09/04/20 09/07/21 Rx amitriptyline 50 mg tablet 50 mg PO QHS #30 tab 10/27/20 09/07/21 Rx gentamicin 0.1 % topical ointment 1 applic TOPICAL QDAY #30 g 11/21/20 09/07/21 Rx insulin lispro 200 unit/mL (3 mL) unit SUB-Q .TID with meals 01/06/21 History subcutaneous pen (Humalog KwikPen U-200 Insulin) aspirin 81 mg tablet,delayed 81 mg PO QDAY #100 tab 04/03/21 09/07/21 Rx release (Adult Low Dose Aspirin) insulin glargine U-300 conc 300 140 unit SUB-Q QHS ml 04/03/21 09/07/21 History unit/mL (3 mL) subcutaneous pen (Toujeo Max U-300 SoloStar) atorvastatin 80 mg tablet 80 mg PO QDAY #90 tab 06/27/21 09/07/21 Rx compr.stocking,knee,long,small #24 ea 07/15/21 Rx (T.E.D. Knee Dqhpxu-M-Pnki) ferric citrate 210 mg iron tablet 420 mg PO .COMPLEX #300 tab 09/03/21 09/07/21 Rx carvedilol 25 mg tablet 1 tab PO BID 09/07/21 09/07/21 History cinacalcet 30 mg tablet 1 tab PO QDAY 09/07/21 09/07/21 History ferric citrate 210 mg iron tablet 2 tab PO TID 09/07/21 09/07/21 History (Auryxia) furosemide 80 mg tablet 1 tab PO BID 09/07/21 09/07/21 History gemfibrozil 300 mg PO DAILY 09/07/21 09/07/21 History Allergies Allergy/AdvReac Type Severity Reaction Status Date / Time No Known Drug Allergies Allergy Verified 09/06/21 21:26 EXAM Constitutional Vitals: Temp Pulse Resp BP Pulse Ox 98.5 F 110 H 16 154/69 78 L 09/07/21 05:01 09/07/21 05:01 09/07/21 05:01 09/07/21 05:01 09/07/21 05:01 DATA Data Completed and Pending Labs: Labs from last 24 hours 09/07/21 09/07/21 09/07/21 05:15 05:15 05:00 WBC 9.2 RBC 2.48 L Hgb 7.5 L Hct 24.8 L POC Hct MCV 100.0 MCH 30.2 MCHC 30.2 L RDW 14.9 H Plt Count 184 MPV 9.4 Neut % (Auto) 69.6 Lymph % (Auto) 15.7 Wagoner % (Auto) 7.9 Eos % (Auto) 6.1 Baso % (Auto) 0.7 Lymph # (Auto) 1.44 L Wagoner # (Auto) 0.73 Eos # (Auto) 0.56 Baso # (Auto) 0.06 Absolute Neutrophils 6.41 POC VBG pH POC VBG pCO2 at Temp POC VBG pO2 POC VBG HCO3 POC VBG Total CO2 POC Venous O2 Sat POC VBG Base Excess POC Sodium Sodium 136 POC Potassium Potassium 3.7 POC Chloride Chloride 97 Carbon Dioxide 19 L POC Total CO2 Anion Gap 20.0 H POC BUN BUN 63 H Creatinine 13.8 H* POC Creatinine GFR Calculation 4 Glucose 82 POC Glucose POC Venous Lactate Calcium 9.1 POC WB Ioniz Calcium Total Bilirubin 0.2 AST 8 ALT 12 Alkaline Phosphatase 177 H Total Protein 6.2 Albumin 3.0 L Globulin 3.2 Albumin/Globulin Ratio 0.9 L Beta-Hydroxybutyrate Pending Peritoneal Source Peritoneal Color Peritoneal Appearance Peritoneal RBC Periton Nuc Cells Periton Neutrophils Periton Lymphocytes Peritoneal Monocytes Peritoneal Tot Protein Peritoneal LDH Peritoneal Glucose 09/06/21 09/06/21 09/06/21 19:10 19:00 19:00 WBC 11.1 H RBC 2.72 L Hgb 8.1 L Hct 25.4 L POC Hct MCV 93.4 MCH 29.8 MCHC 31.9 RDW 14.9 H Plt Count 228 MPV 9.4 Neut % (Auto) 77.1 Lymph % (Auto) 12.2 L Wagoner % (Auto) 5.9 Eos % (Auto) 4.3 Baso % (Auto) 0.5 Lymph # (Auto) 1.35 L Wagoner # (Auto) 0.65 Eos # (Auto) 0.48 Baso # (Auto) 0.06 Absolute Neutrophils 8.54 H POC VBG pH POC VBG pCO2 at Temp POC VBG pO2 POC VBG HCO3 POC VBG Total CO2 POC Venous O2 Sat POC VBG Base Excess POC Sodium Sodium 137 POC Potassium Potassium 3.8 POC Chloride Chloride 93 L Carbon Dioxide 20 L POC Total CO2 Anion Gap 24.0 H POC BUN BUN 64 H Creatinine 13.6 H* POC Creatinine GFR Calculation 4 Glucose 127 H POC Glucose POC Venous Lactate Calcium 9.7 POC WB Ioniz Calcium Total Bilirubin 0.2 AST 8 ALT 15 Alkaline Phosphatase 217 H Total Protein 7.2 Albumin 3.7 Globulin 3.5 Albumin/Globulin Ratio 1.1 Beta-Hydroxybutyrate 0.46 H Peritoneal Source Peritoneal Peritoneal Color Straw Peritoneal Appearance Clear Peritoneal RBC <50,000 Periton Nuc Cells 1903 Periton Neutrophils 86 Periton Lymphocytes 2 Peritoneal Monocytes 12 Peritoneal Tot Protein < 0.2 Peritoneal LDH 18 Peritoneal Glucose 1087 09/06/21 09/06/21 18:20 18:18 WBC RBC Hgb Hct POC Hct 23.0 L MCV MCH MCHC RDW Plt Count MPV Neut % (Auto) Lymph % (Auto) Wagoner % (Auto) Eos % (Auto) Baso % (Auto) Lymph # (Auto) Wagoner # (Auto) Eos # (Auto) Baso # (Auto) Absolute Neutrophils POC VBG pH 7.41 POC VBG pCO2 at Temp 37.3 L POC VBG pO2 37 POC VBG HCO3 23.5 L POC VBG Total CO2 25.0 POC Venous O2 Sat 71.0 H POC VBG Base Excess -1.0 POC Sodium 137 Sodium POC Potassium 3.9 Potassium POC Chloride 100 Chloride Carbon Dioxide POC Total CO2 22.0 Anion Gap POC BUN 70 H BUN Creatinine POC Creatinine 16.1 H* GFR Calculation Glucose POC Glucose 184 H POC Venous Lactate 2.0 Calcium POC WB Ioniz Calcium 1.09 L Total Bilirubin AST ALT Alkaline Phosphatase Total Protein Albumin Globulin Albumin/Globulin Ratio Beta-Hydroxybutyrate Peritoneal Source Peritoneal Color Peritoneal Appearance Peritoneal RBC Periton Nuc Cells Periton Neutrophils Periton Lymphocytes Peritoneal Monocytes Peritoneal Tot Protein Peritoneal LDH Peritoneal Glucose A/P Narrative A/P Narrative: Assessment: 51 year old male with a history of hypertension, type 2 diabetes mellitus, prior stroke, ESRD on peritoneal dialysis, cognitive impairment, obesity admitted for hyperglycemia and concern for sepsis secondary to bacterial peritonitis. Hyperglycemia resolved after multiple doses of subcutaneous insulin at home prior to the ED visit. The patient received IV fluid and broad spectrum antibiotics. Lactic acid was 2.0 #Sepsis secondary to bacterial peritonitis in patient on peritoneal dialysis #Resolved hyperglycemia #Metabolic acidosis likely due ESRD #Chronic normocytic anemia of ESRD #Type 2 diabetes mellitus #Hypertension #History of stroke #Cognitive impairment #Obesity BMI 36 Plan -Vancomycin and renally dosed Zosyn. -Follow peritoneal fluid (sample drawn by patient's in the ED). -Follow blood cultures. -Recheck beta hydroxybutyrate. -Hemoglobin A1c. -Monitor hemoglobin. -Iron studies, give iron if low -Lantus 40 units HS and correction humalog SSI-medium for now, likely increase as this is much lower doses than home doses. -Resume home amitriptyline, aspirin, atorvastatin, cinacalcet, coreg, doxazosin, lasix, tramadol prn. -Hold home gemfibrozil for now. -Nephrology consult for PD and bacterial peritonitis in light of PD catheter. -Renal/diabetic diet. -PT and OT consult. -DVT prophylaxis: Heparin SQ -Code status: Full -Disposition: TBD Time Spent With Patient Time: Total time spent is greater than 50% in coordination of care (as documented) at patient's floor/unit and/or counseling patient:
[2021-09-07] MEDS ORDERED: traMADol 50 MG TABLET PO PRN (07:36)
[2021-09-07 08:07] LABS: Iron 25 ug/dL (61-157); TIBC Calculation 163 ug/dl (228-428); Transferrin % Saturation 15 % (20-50)
[2021-09-07 08:40] LABS: Hemoglobin A1C 8.6 % Hgb (4.0-6.0)
[2021-09-07] MEDS ORDERED: IRON SUCROSE COMPLEX 100 MG/5 ML VIAL IV ONE (09:45)
[2021-09-07] MEDS ORDERED: IRON SUCROSE COMPLEX 200 MG in 0.9 % SODIUM CHLORIDE 250 ML IV SCH (09:45)
[2021-09-07] MEDS: HEPARIN 5,000 UNIT/ML VIAL SQ SCH ×2 (10:02→22:17)
[2021-09-07] MEDS: ATORVASTATIN 40 MG TABLET PO SCH (10:03)
[2021-09-07] MEDS: GENTAMICIN CRM 0.1% TUBE 15GM TOPICAL SCH (10:03)
[2021-09-07] MEDS: CARVEDILOL 12.5 MG TABLET PO SCH ×3 (10:03→22:18)
[2021-09-07] MEDS: ASPIRIN 81 MG TAB.CHEW PO SCH (10:03)
[2021-09-07] MEDS: CINACALCET 30 MG TABLET PO SCH (10:03)
[2021-09-07] MEDS: FUROSEMIDE 80 MG TABLET PO SCH ×2 (10:03→22:17)
--- NOTE | 2021-09-07 11:14 | Nephrology Consult Note ---
HPI Data of Consult Patient: known to practice within the last 3 years Consult date: 09/07/21 Requesting physician: Marco Ford Primary Care Provider: Delmi Carey Consult Narrative Patient Information: Note initiated : 09/07/21 at 10:34 am Patient: Herman Hall 51 y/o M admitted on 09/07/21 for high blood sugar, fall. Herman Hall is a 51-year-old male with end stage renal disease on peritoneal dialysis, chronic anemia due to ESRD, hypertension, diabetes mellitus type 2, history of CVA/TIA admitted on 09/07/21. He presented to [facility] ED for weakness. His reported that he has been weak all week and had several ED visits. His blood sugar was elevated yesterday and he became confused. She noticed cloudy PD fluid and brought a sample in a sterile container. His vitals in ED were stable. Labs were significant for WBC 11.1, lactate 2.0, blood sugar of 127. PD fluid (the sample from his ) showed 1903 nucleated cells (86% neutr ophils). He was given IV Vancomycin and Zosyn. Chief complaint: Weakness Reason for consult: End stage renal disease on peritoneal dialysis cc:: CC: Marco Ford MD Review of Systems ROS unobtainable: due to mental status PFSH PFSH All Active Problems (Updated 09/07/21 @ 02:16 by Koko Machado MD) Edema (Chronic) Diabetes mellitus, type II (Chronic) Essential hypertension, benign (Chronic) Mixed hyperlipidemia (Chronic) CKD (chronic kidney disease), stage IV (Chronic) Hypertensive renal disease (Chronic) Hyperparathyroidism due to renal insufficiency (Chronic) Proteinuria (Chronic) Gout due to renal impairment (Chronic) Anemia due to stage 4 chronic kidney disease (Chronic) CKD stage G5/A3, GFR <15 and albumin creatinine ratio >300 mg/g (Chronic) CKD (chronic kidney disease) stage 5, GFR less than 15 ml/min (Chronic) Accelerated hypertension (Chronic) Nephrotic range proteinuria (Chronic) Anemia due to stage 5 chronic kidney disease treated with darbepoetin (Chronic) Iron deficiency anemia due to chronic blood loss (Acute) ESRD on peritoneal dialysis (Chronic) Diabetic peripheral neuropathy (Acute) Peritonitis associated with peritoneal dialysis (Acute) Peritonitis, spontaneous bacterial (Acute) Uncontrolled diabetes mellitus with ESRD (end-stage renal disease) (Chronic) Hypoglycemia unawareness associated with type 2 diabetes mellitus (Acute) Leg pain (Acute) Hyperglycemia (Acute) Altered mental status (Acute) Type 2 diabetes mellitus with end-stage renal disease (Acute) Hypertension due to end stage renal disease on dialysis (Chronic) Obesity (BMI 30-39.9) (Acute) Anemia in end-stage renal disease (Acute) Mixed dyslipidemia (Acute) Delirium (Acute) SBP (spontaneous bacterial peritonitis) (Acute) Hyperphosphatemia (Acute) Fall (Acute) Acute bacterial peritonitis (Acute) Fall (Acute) Acute delirium (Acute) Medical History Accelerated hypertension Refractory to beta-blockers high-dose ARB, high-dose alpha-1 antagonist and loop diuretic Did respond to minoxidil but developed side effects and doses above 5 mg twice daily Anemia due to stage 4 chronic kidney disease HgB 8-9 gm/dl so monitoring, low Fe so increased Fe replacement to 65 mg BID BP too high for SANTOS CKD (chronic kidney disease) stage 5, GFR less than 15 ml/min With nephrotic range proteinuria in the setting of diabetes and accelerated hypertension CKD (chronic kidney disease), stage IV DM +/- HTN with nonnephrotic proteinuria CKD stage G5/A3, GFR <15 and albumin creatinine ratio >300 mg/g Seems to be primarily diabetic nephropathy with hypertensive renal disease Decreased proteinuria to <3 gm/day but too little, to late Chose PD so will arrange PD catheter and training to follow Diabetes mellitus, type II Urine Prot/Cr 1.5 but GFR makes ARB therapy controversial Hemoglobin A1c 7.5% in January 2019 Edema Essential hypertension, benign Avoiding ACEi and ARB due to GFR Gout due to renal impairment Uric acid elevated on 150 mg/day allopurinol. GFR <20, lasix and metolizone likely cause Hyperparathyroidism due to renal insufficiency PTH 150-300 range Hypertensive renal disease Goal blood pressure is 140/90 Valsartan, Minoxidil, carvedilol, doxazosin, furosemide and prn metolazone Mixed hyperlipidemia Nephrotic range proteinuria This is gone up from 1.5 g to 4 g per 24 hours in the setting of uncontrolled hypertension He is on maximal dose losartan Proteinuria This is evidence of diabetic nephropathy Surgical History History of umbilical hernia repair (10/13/19) with mesh and laparoscopic PD catheter placement. Family History Mother Malignant neoplasm Father Coronary artery disease Diabetes mellitus Hypertension Sister Diabetes mellitus Social History (Updated 09/28/19 @ 12:39 by Coleman Butts MD) marital status: occupational status: employed physical activity: none alcohol intake frequency: holiday/special occasion only substance use type: does not use MEDS/ALLERGIES Home Medications and Allergies Home Medications Medication Instructions Recorded Confirmed Type lancets MISCELLANE 04/26/15 10/22/20 History doxazosin 8 mg tablet 8 mg PO QHS #60 tab 09/04/20 09/07/21 Rx amitriptyline 50 mg tablet 50 mg PO QHS #30 tab 10/27/20 09/07/21 Rx gentamicin 0.1 % topical ointment 1 applic TOPICAL QDAY #30 g 11/21/20 09/07/21 Rx insulin lispro 200 unit/mL (3 mL) unit SUB-Q .TID with meals 01/06/21 History subcutaneous pen (Humalog KwikPen U-200 Insulin) aspirin 81 mg tablet,delayed 81 mg PO QDAY #100 tab 04/03/21 09/07/21 Rx release (Adult Low Dose Aspirin) insulin glargine U-300 conc 300 140 unit SUB-Q QHS ml 04/03/21 09/07/21 History unit/mL (3 mL) subcutaneous pen (Toujeo Max U-300 SoloStar) atorvastatin 80 mg tablet 80 mg PO QDAY #90 tab 06/27/21 09/07/21 Rx ferric citrate 210 mg iron tablet 420 mg PO .COMPLEX #300 tab 09/03/21 09/07/21 Rx carvedilol 25 mg tablet 1 tab PO BID 09/07/21 09/07/21 History cinacalcet 30 mg tablet 1 tab PO QDAY 09/07/21 09/07/21 History furosemide 80 mg tablet 1 tab PO BID 09/07/21 09/07/21 History gemfibrozil 300 mg PO DAILY 09/07/21 09/07/21 History Allergies Allergy/AdvReac Type Severity Reaction Status Date / Time No Known Drug Allergies Allergy Verified 09/06/21 21:26 Physical Examination Vital Signs Vital signs: Temp Pulse Resp BP Pulse Ox 98.5 F 111 H 37 H 144/62 97 09/07/21 05:01 09/07/21 06:01 09/07/21 08:23 09/07/21 08:23 09/07/21 06:01 General Appearance General appearance: obese and chronically ill EENT EENT: mucous membranes moist Respiratory Respiratory: clear Cardiovascular Cardiology: edema, regular rate and rapid rhythm Gastrointestinal Gastrointestinal: no tenderness and obese Integumentary Integumentary: no rash Neurologic Neurologic: obtunded Musculoskeletal Musculoskeletal: no deformities Results Lab Results Result Diagrams: 09/07/21 05:15 09/07/21 05:15 Lab results: Most recent lab results Calcium 9.1 mg/dL (8.6-10.4) 09/07/21 05:15 A/P Assessment and plan (1) ESRD on peritoneal dialysis: Assessment and plan: Herman Hall is a 51-year-old male with end stage renal disease on peritoneal dialysis, chronic anemia due to ESRD, hypertension, diabetes mellitus type 2, history of CVA/TIA admitted on 09/07/21. He presented to [facility] ED for weakness. His reported that he has been weak all week and had several ED visits. His blood sugar was elevated yesterday and he became confused. She noticed cloudy PD fluid and brought a sample in a sterile container. His vitals in ED were stable. Labs were significant for WBC 11.1, lactate 2.0, blood sugar of 127. PD fluid (the sample from his ) showed 1903 nucleated cells (86% neutro phils). He was given IV Vancomycin and Zosyn. End stage renal disease on peritoneal dialysis, followed by Dr. Butts. Chronic anemia due to ESRD and iron deficiency. Suspected peritoneal dialysis related peritonitis. Fluid overload with bilateral lower extremity edema. Metabolic acidosis. Recommendations/Plan: PD fluid gram stain and culture pending. CAPD: 2000 ml 2.5% with Ceftazidime 1 gram and Heparin 2000 units, 6 hour dwell time x one exchange daily. Vancomycin will be dosed IP (every 3-5 days) as needed based on trough level. CCPD: 2000 ml 2.5%, five exchanges, 300 ml last fill, total 9 hours. Aranesp SC per dialysis unit schedule. I informed his at bedside today. Status: Chronic (2) Peritonitis associated with peritoneal dialysis: Status: Acute Qualifiers: Encounter type: initial encounter Qualified Code(s): T85.71XA - Infection and inflammatory reaction due to peritoneal dialysis catheter, initial encounter Time Spent With Patient Time: Total time spent is greater than 50% in coordination of care (as documented) at patient's floor/unit and/or counseling patient:
[2021-09-07 11:51] LABS: Appearance,Urine HAZY (Clear); Bilirubin,Urine Negative (Negative); Color,Urine YELLOW; Culture Indicated,Urine yes; Glucose,Urine (UA) >=500 mg/dL (Negative); Ketones,Urine Negative (Negative); Leukocyte Esterase,Urine Negative /uL (Negative); Mucus,Urine FEW /hpf; Nitrate,Urine Negative (Negative); Protein,Urine >=500 mg/dL (Negative); Specific Gravity,Urine 1.012 (1.000-1.035); Urine Amorphous Crystals FEW /hpf; Urine RBC 4 /hpf (0-3); Urine Squamous Epithelial Cell 0 /hpf (0-4); Urine WBC 10 /hpf (0-4); Urobilinogen,Urine Negative
[2021-09-07] MEDS: cefTAZidime 1 GM VIAL IP SCH (12:19)
[2021-09-07] MEDS ORDERED: POLYETHYLENE GLYCOL 3350 17 GM PACKET PO PRN (12:57)
[2021-09-07 15:51] LABS: Vancomycin,Random 23.5 ug/mL
[2021-09-07] MEDS ORDERED: FERRIC CITRATE 210 MG PO PRN (15:52)
[2021-09-07] MEDS ORDERED: IRON PO PRN (15:52)
[2021-09-07] MEDS: FERRIC CITRATE 210 MG PO SCH (16:33)
[2021-09-07] MEDS: IRON PO SCH (16:33)
[2021-09-07] MEDS ORDERED: ONDANSETRON 4 MG/2 ML VIAL IV PRN (17:37)
[2021-09-07] MEDS ORDERED: ONDANSETRON 4 MG/2 ML VIAL ONE (17:47)
[2021-09-07] MEDS ORDERED: INSULIN GLARGINE, HUMAN 1 UNIT/0.01 ML SQ SCH ×2 (21:00)
[2021-09-07] MEDS ORDERED: AMITRIPTYLINE 25 MG TABLET PO SCH (21:00)
[2021-09-07] MEDS ORDERED: DOXAZOSIN 4 MG TABLET PO SCH (21:00)
[2021-09-08 06:24] LABS: Basophils # (Auto) 0.08 K/mcL (0.00-0.30); Basophils % (Auto) 1.2 % (0.0-2.0); Eosinophils # (Auto) 0.59 K/mcL (0.00-0.70); Eosinophils % (Auto) 8.9 % (0.0-7.0); Hematocrit 25.5 % (40.1-51.0); Lymphocytes # (Auto) 1.51 K/mcL (1.50-4.80); Lymphocytes % (Auto) 22.8 % (15.5-49.0); Mean Cell Volume 95.9 fL (80.0-100.0); Mean Corpuscular HGB Conc 31.4 g/dL (31.0-36.0); Mean Platelet Volume 9.5 fL (7.4-10.4); Monocytes # (Auto) 0.58 K/mcL (0.10-0.90); Monocytes % (Auto) 8.8 % (1.0-12.0); Neutrophils % (Auto) 58.3 % (38.0-78.0); Platelet Count 222 K/mcL (140-440); RBC 2.66 M/mcL (4.63-6.08); Red Cell Distribution Width 15.1 % (11.5-14.5); WBC 6.6 K/mcL (4.5-11.0)
[2021-09-08 06:40] LABS: ALT/SGPT 13 U/L (<40); AST/SGOT 9 U/L (<40); Albumin 3.6 gm/dL (3.2-5.2); Alkaline Phosphatase 186 U/L (39-117); Bilirubin,Direct < 0.2 mg/dL (0-0.3); Bilirubin,Total 0.3 mg/dL (0.1-1.0); Blood Urea Nitrogen 59 mg/dL (6-20); Calcium 9.4 mg/dL (8.6-10.4); Carbon Dioxide 22 mmol/L (22-30); Chloride 92 mmol/L (96-108); Globulin 3.6 gm/dL (2.2-3.7); Glomerular Filtration Rate 4; Glucose 215 mg/dL (70-105); Lactate Dehydrogenase 263 U/L (135-225); Phosphorous 10.8 mg/dL (2.5-4.5); Triglycerides 299 mg/dL (<150); Uric Acid 11.5 mg/dL (2.5-8.0)
[2021-09-08] MEDS ORDERED: VANCOMYCIN 1 GM VIAL IP ONE (08:00)
--- NOTE | 2021-09-08 08:03 | Nephrology Progress Note ---
SUBJECTIVE Subjective Patient information: Note initiated : 09/08/21 at 8:01 am Patient: Herman Hall 51 y/o M admitted on 09/07/21 for high blood sugar, fall. Chief Complaint: Weakness Pertinent ROS: Mental status normal. No abdominal pain. No constipation. Edema. Constitutional Vitals: Vital Signs Temp Pulse Resp BP Pulse Ox 97.2 F 91 H 19 145/95 88 L 09/08/21 06:08 09/08/21 06:38 09/07/21 16:01 09/08/21 06:08 09/08/21 06:38 Period Temp Pulse Resp BP Sys/Zelaya Pulse Ox Last 24 Hr 97.2 F-99.1 F 87-111 19-37 100-177/50-147 71-99 Intake and Output 09/07/21 09/08/21 09/08/21 21:59 05:59 13:59 Weight 277 lb Intake & Output: Intake & Output 09/07/21 09/08/21 09/08/21 21:59 05:59 13:59 Weight 277 lb Other: Meal Dinner Percent of Meal Consumed 25% Feeding Ability Assist with Tray Set Up General appearance: cooperative, no acute distress and obese Head Head exam: Present normal inspection Eye Eye exam: Present normal appearance ENT ENT exam: Present mucous membranes moist Respiratory Respiratory exam: Absent respiratory distress Cardiovascular Cardiovascular exam: Present normal rate and rhythm GI/Abdominal GI/Abdominal exam: Present soft; Absent tenderness Extremities Exam Extremities exam: Present pedal edema Neurological Exam Neurological exam: Present alert and oriented X3 Psychiatric Psychiatric exam: Present normal affect and normal mood Skin Skin exam: Present warm; Absent rash A/P Assessment and plan (1) ESRD on peritoneal dialysis: Assessment and plan: Herman Hall is a 51-year-old male with end stage renal disease on peritoneal dialysis, chronic anemia due to ESRD, hypertension, diabetes mellitus type 2, history of CVA/TIA admitted on 09/07/21. He presented to [facility] ED for weakness. His reported that he has been weak all week and had several ED visits. His blood sugar was elevated yesterday and he became confused. She noticed cloudy PD fluid and brought a sample in a sterile container. His vitals in ED were stable. Labs were significant for WBC 11.1, lactate 2.0, blood sugar of 127. PD fluid (the sample from his ) showed 1903 nucleated cells (86% neutrophils). He was given IV Vancomycin and Zosyn. End stage renal disease on peritoneal dialysis, followed by Dr. Butts. Chronic anemia due to ESRD and iron deficiency. Suspected peritoneal dialysis related peritonitis. Fluid overload with bilateral lower extremity edema. Metabolic acidosis, resolved. Workup: PD fluid (the sample from his ) showed 1903 nucleated cells (86% neutrophils). Blood cultures no growth so far. PF fluid culture pending. Vancomycin through on 09/07/21: 23.5 Recommendations/Plan: CAPD: 2000 ml 2.5% with Ceftazidime 1 gram, Vancomycin 1 gram and Heparin 2000 units, 6 hour dwell time x one exchange today. Vancomycin will be dosed IP with a daytime exchange (every 3-5 days) as needed based on trough level. Ceftazidime will be dosed IP with a daytime exchange every day. Continue CCPD nightly. Aranesp SC per dialysis unit schedule. May be discharged home from nephrology point. Status: Chronic (2) Peritonitis associated with peritoneal dialysis: Status: Acute Qualifiers: Encounter type: initial encounter Qualified Code(s): T85.71XA - Infection and inflammatory reaction due to peritoneal dialysis catheter, initial encounter Time Spent With Patient Time: Total time spent is greater than 50% in coordination of care (as documented) at patient's floor/unit and/or counseling patient:
[2021-09-08] MEDS: CARVEDILOL 12.5 MG TABLET PO SCH (08:36)
[2021-09-08] MEDS: CINACALCET 30 MG TABLET PO SCH (08:36)
[2021-09-08] MEDS: ATORVASTATIN 40 MG TABLET PO SCH (08:36)
[2021-09-08] MEDS: IRON PO SCH (08:36)
[2021-09-08] MEDS: INSULIN LISPRO 1 UNIT/0.01 ML UNIT SQ SCH (08:36)
[2021-09-08] MEDS: FERRIC CITRATE 210 MG PO SCH (08:36)
[2021-09-08] MEDS: FUROSEMIDE 80 MG TABLET PO SCH (08:37)
[2021-09-08] MEDS: HEPARIN 5,000 UNIT/ML VIAL SQ SCH (08:37)
[2021-09-08] MEDS: ASPIRIN 81 MG TAB.CHEW PO SCH (08:37)
[2021-09-08] MEDS: cefTAZidime 1 GM VIAL IP SCH (09:04)
[2021-09-08] MEDS: GENTAMICIN CRM 0.1% TUBE 15GM TOPICAL SCH (09:05)
--- NOTE | 2021-09-08 09:25 | Discharge Summary ---
Discharge Provider Provider Patient information: Note initiated : 09/08/21 at 9:21 am Service Date, if different from initiated Date: [] Patient: Herman Hall 51 y/o M admitted on 09/07/21 for high blood sugar, fall. Chief Complaint: [] Date of admission: 09/07/21 02:50 Discharge date: 09/08/21 Primary care physician: Delmi Carey Consults: 09/06/21 Consult to Physician [CONS] Stat Comment: Consulting Provider: Marco Ford Reason For Exam: Physician to Consult 09/07/21 07:03 Consult to Physician [CONS] Routine Comment: Consulting Provider: Jeremiah Oneil Reason For Exam: Physician to Consult Discharge Meds Discharge Medications Home Medications lancets MISCELLANE 04/26/15 [History Confirmed 10/22/20 Last Taken 01/05/21] doxazosin 8 mg tablet 8 mg PO QHS #60 tab 09/04/20 [Rx Confirmed 09/07/21 Last Taken 01/05/21] amitriptyline 50 mg tablet 50 mg PO QHS #30 tab 10/27/20 [Rx Confirmed 09/07/21 Last Taken 01/05/21] gentamicin 0.1 % topical ointment 1 applic TOPICAL QDAY #30 g 11/21/20 [Rx Co nfirmed 09/07/21 Last Taken 01/05/21] insulin lispro 200 unit/mL (3 mL) subcutaneous pen (Humalog KwikPen U-200 Insulin) unit SUB-Q .TID with meals 01/06/21 [History Last Taken 01/05/21] aspirin 81 mg tablet,delayed release (Adult Low Dose Aspirin) 81 mg PO QDAY #100 tab 04/03/21 [Rx Confirmed 09/07/21 Last Taken Unknown] insulin glargine U-300 conc 300 unit/mL (3 mL) subcutaneous pen (Toujeo Max U- 300 SoloStar) 140 unit SUB-Q QHS ml 04/03/21 [History Confirmed 09/07/21 Last Taken Unknown] atorvastatin 80 mg tablet 80 mg PO QDAY #90 tab 06/27/21 [Rx Confirmed 09/07/21 Last Taken Unknown] ferric citrate 210 mg iron tablet 420 mg PO .COMPLEX #300 tab 09/03/21 [Rx Confirmed 09/07/21 Last Taken Unknown] carvedilol 25 mg tablet 1 tab PO BID 09/07/21 [History Confirmed 09/07/21 Last Taken Unknown] cinacalcet 30 mg tablet 1 tab PO QDAY 09/07/21 [History Confirmed 09/07/21 Last Taken Unknown] ferric citrate 210 mg iron tablet (Auryxia) 2 tab PO TID 09/07/21 [History Confirmed 09/07/21 Last Taken 09/06/21 11:30] furosemide 80 mg tablet 1 tab PO BID 09/07/21 [History Confirmed 09/07/21 Last Taken Unknown] gemfibrozil 300 mg PO DAILY 09/07/21 [History Confirmed 09/07/21 Last Taken Unknown] ceftazidime 1 gram solution for injection 1 g INTRAPERITONEAL Q24H 12 Days #12 ea 09/08/21 [Rx Last Taken Unknown] vancomycin 1.5 gram intravenous solution 1 g INTRAPERITONEAL Q3D 12 Days #4 ea 09/08/21 [Rx Last Taken Unknown] COURSE Hospital Course Hospital course: Mr. Hall is a 51 year old male with a history of hypertension, type 2 diabetes mellitus, prior stroke, ESRD on peritoneal dialysis, cognitive impairment, obesity who presented to the ED with his after experiencing multiple falls at home and having elevated blood sugars that was difficult to control with subcutaneous bolus insulin. Prior to this, the patient had been confused and had multiple falls. He injured his right upper arm with some bruising present. The patient was resistant to go to the ED however after a fall his insisted on calling EMS and the patient was brought to the ED. In the ED, the patient was found to be confused and had a white count. Peritoneal fluid was collected by the patient's , fluid analysis was consistent with bacterial peritonitis. The patient was started on broad-spectrum antibiotics. A CT head without contrast did not show any acute changes, a CT of the cervical spine did not show any acute fracture or post traumatic changes. The patient was admitted for hyperglycemia and concern for sepsis secondary to bacterial peritonitis. Hyperglycemia resolved after multiple doses of subcutaneous insulin at home prior to the ED visit. The patient received IV fluid and broad spectrum antibiotics. Lactic acid was 2.0 09/08 Patient was transition to intraperitoneal vancomycin and ceftazidime. Feels like he is back to his baseline today. Discussed plan of care with nephrology, the patient will require intraperitoneal antibiotics for 14 days and that may need to be extended depending on clinical status and more laboratory work after discharge. Discussed the plan of care with the patient, his and the hemodialysis nurse. The patient and his understand the plan, discharged to home with . Cultures still pending at discharge, follow-up with nephrology. Follow-up peritoneal culture results. Physical exam General: Morbidly obese male in no apparent distress. Head: Atraumatic, normal inspection. Eyes: normal appearance, no scleral icterus. Neck: full ROM Respiratory: no respiratory distress. Cardiovascular: normal rate and rhythm, S1, S2. GI/Abdominal: Distended abdomen, peritoneal hemodialysis present, soft, nontender, no guarding. Extremities: Bilateral lower extremity edema, right greater than left, full range of motion, nontender. Neurological: CN II-XII intact, intact motor, intact sensation. Psychiatric: normal mood. Skin: warm, normal color Discharge diagnosis: Bacterial peritonitis inpatient with peritoneal dialysis Time Spent with Patient Time attestation: Total time spent providing and/or coordinating discharge services: EXAM Constitutional Vitals: Temp Pulse Resp BP Pulse Ox 97.5 F 91 H 20 181/92 94 09/08/21 08:01 09/08/21 06:38 09/08/21 08:01 09/08/21 08:16 09/08/21 08:01 Discharge Data Data Completed and Pending Labs on day of discharge: Labs from last 24 hours 09/08/21 09/08/21 09/07/21 05:07 05:07 12:14 WBC 6.6 RBC 2.66 L Hgb 8.0 L 7.8 L Hct 25.5 L MCV 95.9 MCH 30.1 MCHC 31.4 RDW 15.1 H Plt Count 222 MPV 9.5 Neut % (Auto) 58.3 Lymph % (Auto) 22.8 Brule % (Auto) 8.8 Eos % (Auto) 8.9 H Baso % (Auto) 1.2 Lymph # (Auto) 1.51 Brule # (Auto) 0.58 Eos # (Auto) 0.59 Baso # (Auto) 0.08 Absolute Neutrophils 3.85 Sodium 135 Potassium 3.3 Chloride 92 L Carbon Dioxide 22 Anion Gap 21.0 H BUN 59 H Creatinine 13.0 H* GFR Calculation 4 Glucose 215 H Uric Acid 11.5 H Calcium 9.4 Phosphorus 10.8 H* Magnesium 2.2 Total Bilirubin 0.3 Direct Bilirubin < 0.2 GGT 70 H AST 9 ALT 13 Alkaline Phosphatase 186 H Lactate Dehydrogenase 263 H Total Protein 7.2 Albumin 3.6 Globulin 3.6 Albumin/Globulin Ratio 1.0 Triglycerides 299 H Urine Color Urine Appearance Urine pH Ur Specific [place] Urine Protein Urine Glucose (UA) Urine Ketones Urine Occult Blood Urine Nitrate Urine Bilirubin Urine Urobilinogen Ur Leukocyte Esterase Urine RBC Urine WBC Ur Squamous Epith Cells Amorphous Crystals Urine Bacteria Urine Mucus Ur Culture Indicated? Random Vancomycin 09/07/21 09/07/21 11:05 07:47 WBC RBC Hgb Hct MCV MCH MCHC RDW Plt Count MPV Neut % (Auto) Lymph % (Auto) Bru[place] % (Auto) Eos % (Auto) Baso % (Auto) Lymph # (Auto) [place] # (Auto) Eos # (Auto) Baso # (Auto) Absolute Neutrophils Sodium Potassium Chloride Carbon Dioxide Anion Gap BUN Creatinine GFR Calculation Glucose Uric Acid Calcium Phosphorus Magnesium Total Bilirubin Direct Bilirubin GGT AST ALT Alkaline Phosphatase Lactate Dehydrogenase Total Protein Albumin Globulin Albumin/Globulin Ratio Triglycerides Urine Color Yellow Urine Appearance Hazy A Urine pH 5.0 Ur Specific [place] 1.012 Urine Protein >=500 A Urine Glucose (UA) >=500 A Urine Ketones Negative Urine Occult Blood 0.20 Urine Nitrate Negative Urine Bilirubin Negative Urine Urobilinogen Negative Ur Leukocyte Esterase Negative Urine RBC 4 H Urine WBC 10 H Ur Squamous Epith Cells 0 Amorphous Crystals Few A Urine Bacteria None Urine Mucus Few A Ur Culture Indicated? yes Random Vancomycin 23.5 Preliminary micro results at discharge 09/06/21 19:10 Gram Stain - Preliminary Abdominal Fluid 09/06/21 19:06 Blood Culture - Preliminary Blood 09/06/21 19:00 Blood Culture - Preliminary Blood Discharge Plan Patient/Caregiver Discharge Instructions Activity: increase activity as tolerated Diet: Renal/Consistent Carbs Prescriptions: New ceftazidime 1 gram Recon Soln 1 g intraperitoneal Q24H 12 Days Qty: 12 0RF vancomycin 1.5 gram recon soln 1 g intraperitoneal Q3D 12 Days Qty: 4 0RF Continued doxazosin 8 mg tablet 8 mg PO QHS Qty: 60 11RF Rx Instructions: new dose amitriptyline 50 mg tablet 50 mg PO QHS Qty: 30 11RF gentamicin 0.1 % ointment 1 applic topical QDAY Qty: 30 11RF Toujeo Max U-300 SoloStar 300 unit/mL (3 mL) insulin pen 140 unit SUB-Q QHS 0RF Rx Instructions: 120 units subcutaneously (300 units/mL solution) once (at bedtime) aspirin [Adult Low Dose Aspirin] 81 mg tablet,delayed release (DR/EC) 81 mg PO QDAY Qty: 100 0RF atorvastatin 80 mg tablet 80 mg PO QDAY Qty: 90 3RF ferric citrate 210 mg iron tablet 420 mg PO .COMPLEX Qty: 300 12RF Rx Instructions: 420 mg PO TID with meals and 1 po with snack; administer with a meal lancets MISCELLANE 0RF Humalog KwikPen Insulin 200 unit/mL (3 mL) insulin pen SUB-Q .TID with meals 0RF Label Comments: Takes 1 unit per 10 over 140 blood sugar. Plus 1 unit per 50% of carb intake. Rx Instructions: states sliding scale with meals gemfibrozil 300 mg PO DAILY 0RF carvedilol 25 mg tablet 1 tab PO BID 0RF furosemide 80 mg tablet 1 tab PO BID 0RF cinacalcet 30 mg tablet 1 tab PO QDAY 0RF Auryxia 210 mg iron tablet 2 tab PO TID 0RF Follow Up Plan Follow up with: Delmi Carey ARNP [Primary Care Provider] - Jeremiah Oneil MD [Physician] - Patient Disposition: Home, Self-Care Overall status at discharge: patient is progressing back to baseline Discharge Orders: Discharge Order (Routine); Ordered 09/08/21 Ordered By: Marco Ford
[2021-09-08] MEDS ORDERED: INSULIN GLARGINE, HUMAN 1 UNIT/0.01 ML SQ SCH (21:00)
--- NOTE | 2021-09-09 07:34 | EKG ---
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 Measurements Intervals [place] Rate: 113 P: 47 DE: 126 QRS: 66 QRSD: 103 T: 129 QT: 328 QTc: 450 Interpretive Statements Sinus tachycardia Abnormal T, consider ischemia, lateral leads Borderline ST elevation, anterior leads Electronically Signed On 09-09-2021 7:34:19 PDT by Tejinder Reyes M.D. /[id number]
== END 2021-09-08 09:59 | disposition home or self-care (01) | DRG 919 ==
LOC: ED 18:05 → ICU 09-07 02:50
PROVIDERS: ADMIT Internal Medicine; ATTEND Internal Medicine

== ENCOUNTER 2022-01-21 15:30 | Inpatient (IN) ==
[2022-01-21] MEDS ORDERED: 0.9 % SODIUM CHLORIDE 500 ML IV ONE ×2 (15:45→18:40)
[2022-01-21] MEDS: 0.9 % SODIUM CHLORIDE 1,000 ML IV ONE ×2 (15:45→18:43)
[2022-01-21] MEDS ORDERED: PIPERACILLIN SODIUM/TAZOBACTAM 3.375 GM in DEXTROSE 5% IN WATER 50 ML IV ONE (16:00)
--- NOTE | 2022-01-21 16:27 | XRay Report ---
CLINICAL INFORMATION: Decreased mental status COMPARISON: 07/12/2021 TECHNIQUE: Portable FINDINGS: Right IJ double-lumen catheter tip overlies the right atrium. The heart size, mediastinum and pulmonary vessels are unremarkable. The lungs are clear. There are no effusions. The bones and soft tissues are within normal limits. IMPRESSION: Normal chest. Interpreted and Authenticated by: Tejinder Ruiz 01/21/22
--- NOTE | 2022-01-21 16:27 | Emergency Department Note ---
HPI General Chief complaint: Altered Mental Status Stated complaint: AMS Time Seen by Provider: 01/21/22 15:39 Source: family and RN notes reviewed Mode of arrival: other Limitations: altered mental status History of Present Illness HPI Narrative: Narrative: Presents emergency department for evaluation of fever and altered mental status. He is dialysis patient. Has been ill with a cough for the past several days. Cough has been nonproductive. Yesterday had fever and family describes rigors with shaking chills. Today went to dialysis had cultures obtained after dialysis and was referred to the emergency department for further evaluation. On arrival to the emergency department the patient is somnolent, he arouses verbally but does not answer questions. He is here with his daughter. Daughter states that he is a DNR with comfort measures and limited interventions. Does not wish to be placed on a ventilator or have CPR. No other complaints. Related Data Home Medications Medication Instructions Recorded Confirmed lancets miscellaneous 04/26/15 10/22/20 insulin lispro 200 unit/mL (3 mL) unit subcut .TID with meals 01/06/21 subcutaneous pen (Humalog KwikPen U-200 Insulin) insulin glargine U-300 conc 300 140 unit subcut QHS 04/03/21 09/07/21 unit/mL (3 mL) subcutaneous pen (Toujeo Max U-300 SoloStar) gemfibrozil 300 mg PO DAILY 09/07/21 09/07/21 carvedilol 25 mg tablet 12.5 mg PO BID blood pressure 10/17/21 Previous Rx's Medication Instructions Recorded aspirin 81 mg tablet,delayed 81 mg PO QDAY #100 tabs 04/03/21 release (Adult Low Dose Aspirin) atorvastatin 80 mg tablet 80 mg PO QDAY #90 tabs 06/27/21 ferric citrate 210 mg iron tablet 420 mg PO .COMPLEX 09/03/21 Hyperparathyroidism #300 tabs famotidine 20 mg tablet (Pepcid) 20 mg PO BID #30 tabs 09/23/21 ondansetron 4 mg disintegrating 4 mg PO Q8H PRN nausea and 09/23/21 tablet vomiting #14 tabs amitriptyline 50 mg tablet 50 mg PO QHS Neuropathy #90 tabs 10/29/21 vancomycin 2 gram/500 mL in 0.9 % 2 g (500 mL) IV ONCE Fever on HD 01/21/22 sodium chloride intravenous #500 mL Allergies Allergy/AdvReac Type Severity Reaction Status Date / Time No Known Drug Allergies Allergy Verified 10/12/21 20:34 Review of Systems ROS ROS Narrative: Narrative: As above, otherwise limited due to current mental status. [facility] Narrative Patient History Narrative: Narrative: Medical/Surgical/Family History All Active Problems Edema (Chronic) Diabetes mellitus, type II (Chronic) Essential hypertension, benign (Chronic) Mixed hyperlipidemia (Chronic) CKD (chronic kidney disease), stage IV (Chronic) Hypertensive renal disease (Chronic) Hyperparathyroidism due to renal insufficiency (Chronic) Proteinuria (Chronic) Gout due to renal impairment (Chronic) Anemia due to stage 4 chronic kidney disease (Chronic) CKD stage G5/A3, GFR <15 and albumin creatinine ratio >300 mg/g (Chronic) CKD (chronic kidney disease) stage 5, GFR less than 15 ml/min (Chronic) Accelerated hypertension (Chronic) Nephrotic range proteinuria (Chronic) Anemia due to stage 5 chronic kidney disease treated with darbepoetin (Chronic) Iron deficiency anemia due to chronic blood loss (Acute) ESRD on peritoneal dialysis (Chronic) Diabetic peripheral neuropathy (Acute) Peritonitis associated with peritoneal dialysis (Acute) Peritonitis, spontaneous bacterial (Acute) Uncontrolled diabetes mellitus with ESRD (end-stage renal disease) (Chronic) Hypoglycemia unawareness associated with type 2 diabetes mellitus (Acute) Leg pain (Acute) Hyperglycemia (Acute) Altered mental status (Acute) Type 2 diabetes mellitus with end-stage renal disease (Acute) Hypertension due to end stage renal disease on dialysis (Chronic) Obesity (BMI 30-39.9) (Acute) Anemia in end-stage renal disease (Acute) Mixed dyslipidemia (Acute) Delirium (Acute) SBP (spontaneous bacterial peritonitis) (Acute) Hyperphosphatemia (Acute) Fall (Acute) Acute bacterial peritonitis (Acute) Fall (Acute) Acute delirium (Acute) Nausea & vomiting (Acute) Dehydration (Acute) VRE (vancomycin-resistant Enterococci) (Acute) ESRD on hemodialysis (Acute) Diabetic toe ulcer (Acute) Fever and chills (Acute) Medical History Accelerated hypertension Refractory to beta-blockers high-dose ARB, high-dose alpha-1 antagonist and loop diuretic Did respond to minoxidil but developed side effects and doses above 5 mg twice daily Anemia due to stage 4 chronic kidney disease HgB 8-9 gm/dl so monitoring, low Fe so increased Fe replacement to 65 mg BID BP too high for SANTOS CKD (chronic kidney disease) stage 5, GFR less than 15 ml/min With nephrotic range proteinuria in the setting of diabetes and accelerated hypertension CKD (chronic kidney disease), stage IV DM +/- HTN with nonnephrotic proteinuria CKD stage G5/A3, GFR <15 and albumin creatinine ratio >300 mg/g Seems to be primarily diabetic nephropathy with hypertensive renal disease Decreased proteinuria to <3 gm/day but too little, to late Chose PD so will arrange PD catheter and training to follow Diabetes mellitus, type II Urine Prot/Cr 1.5 but GFR makes ARB therapy controversial Hemoglobin A1c 7.5% in January 2019 Edema Essential hypertension, benign Avoiding ACEi and ARB due to GFR Gout due to renal impairment Uric acid elevated on 150 mg/day allopurinol. GFR <20, lasix and metolizone likely cause Hyperparathyroidism due to renal insufficiency PTH 150-300 range Hypertensive renal disease Goal blood pressure is 140/90 Valsartan, Minoxidil, carvedilol, doxazosin, furosemide and prn metolazone Mixed hyperlipidemia Nephrotic range proteinuria This is gone up from 1.5 g to 4 g per 24 hours in the setting of uncontrolled hypertension He is on maximal dose losartan Proteinuria This is evidence of diabetic nephropathy Surgical History History of umbilical hernia repair (10/13/19) with mesh and laparoscopic PD catheter placement. Family History Mother Malignant neoplasm Father Coronary artery disease Diabetes mellitus Hypertension Sister Diabetes mellitus Social History Smoking Status: Never smoker Alcohol Intake Frequency: holiday/special occasion only Substance Use: does not use Exam Narrative Narrative: Narrative: Blood pressure 135/67, pulse 140, respirations 23, O2 sat 100% General Limitations: altered mental status General appearance: Present lethargic Head Head: Present atraumatic, normocephalic and normal inspection Eye Eye: Present normal appearance, PERRL and EOMI ENT ENT: Present normal exam Neck Neck: Present normal inspection Respiratory Respiratory: Absent respiratory distress Adbominal Abdominal: Present soft; Absent distention, tenderness, guarding, rebound or rigidity Extremities Extremities: Present normal inspection Neurological Neurological: Present other (Somnolent) Psychiatric Psychiatric: Present normal affect Skin Skin: Present warm (WNL) and dry Course Vital Signs Vital signs: Vital Signs Temperature 100.2 F H 01/21/22 15:30 Pulse Rate 140 H 01/21/22 15:30 Respiratory Rate 32 H 01/21/22 15:30 Blood Pressure 151/101 01/21/22 15:30 Pulse Oximetry (%) 100 01/21/22 15:30 Oxygen Delivery Method 01/21/22 15:30 Temperature 100.2 F H 01/21/22 15:30 Pulse Rate 140 H 01/21/22 16:01 Respiratory Rate 23 H 01/21/22 16:01 Blood Pressure 135/67 01/21/22 16:01 Pulse Oximetry (%) 100 01/21/22 16:01 Oxygen Delivery Method 01/21/22 15:30 MDM MDM Narrative Medical decision making narrative: Narrative: Chest x-ray showed no acute cardiopulmonary pathology. Patient received van comycin per nephrology's order. He is given Zosyn. Nephrology also requested 140 mg of gentamicin IV which was ordered as well. Nephrology is concerned for catheter associated infection. Discussed findings with family. Their questions were answered. Laboratory studies pending at time of dictation. Patient's further care signed over to oncoming emergency medicine physician. Lab Data Result diagrams: 01/21/22 16:15 01/21/22 16:15 Labs: Lab Results 01/21/22 Range/Units 16:15 WBC 7.3 (4.5-11.0) K/mcL RBC 3.73 L (4.63-6.08) M/mcL Hgb 11.4 L (13.7-17.5) g/dL Hct 34.9 L (40.1-51.0) % MCV 93.6 (80.0-100.0) fL MCH 30.6 (26.0-34.0) pg MCHC 32.7 (31.0-36.0) g/dL RDW 15.5 H (11.5-14.5) % Plt Count 172 (140-440) K/mcL MPV 9.7 (7.4-10.4) fL Immature Gran % (Auto) 1.1 H (0.0-0.5) % Neut % (Auto) 78.3 H (38.0-78.0) % Lymph % (Auto) 8.8 L (15.5-49.0) % [place] % (Auto) 7.8 (1.0-12.0) % Eos % (Auto) 3.3 (0.0-7.0) % Baso % (Auto) 0.7 (0.0-2.0) % Lymph # (Auto) 0.64 L (1.50-4.80) K/mcL [place] # (Auto) 0.57 (0.10-0.90) K/mcL Eos # (Auto) 0.24 (0.00-0.70) K/mcL Baso # (Auto) 0.05 (0.00-0.30) K/mcL Immature Gran # 0.08 H (0.00-0.05) K/mcl Absolute Neutrophils 5.70 (1.80-8.00) K/mcL ED POC Tests ED POC Tests: HAROLDO - Influenza A Negative HAROLDO - Influenza B Negative HAROLDO - SARS Antigen Negative Discharge Plan Patient/Caregiver Discharge Instructions Follow up with: Delmi Carey ARNP [Primary Care Provider] - Prescriptions: No Action Toujeo Max U-300 SoloStar 300 unit/mL (3 mL) insulin pen 140 unit SUB-Q QHS Rx Instructions: 120 units subcutaneously (300 units/mL solution) once (at bedtime) aspirin [Adult Low Dose Aspirin] 81 mg tablet,delayed release (DR/EC) 81 mg PO QDAY Qty: 100 0RF atorvastatin 80 mg tablet 80 mg PO QDAY Qty: 90 3RF ferric citrate 210 mg iron tablet 420 mg PO .COMPLEX Qty: 300 12RF Rx Instructions: 420 mg PO TID with meals and 1 po with snack; administer with a meal carvedilol 25 mg tablet 12.5 mg PO BID Hold Instructions: Doctor's Order Rx Instructions: Decrease to 1/2(25 mg) = 12.5 mg po BID amitriptyline 50 mg tablet 50 mg PO QHS Qty: 90 3RF vancomycin in 0.9 % sodium chl 2 gram/500 mL solution 2 g IV ONCE Qty: 500 0RF Rx Instructions: Give 2 gm IV at end of HD x 1 dose today lancets MISCELLANE Humalog KwikPen Insulin 200 unit/mL (3 mL) insulin pen SUB-Q .TID with meals Label Comments: Takes 1 unit per 10 over 140 blood sugar. Plus 1 unit per 50% of carb intake. Rx Instructions: states sliding scale with meals gemfibrozil 300 mg PO DAILY ondansetron 4 mg tablet,disintegrating 4 mg PO Q8H PRN (Reason: nausea and vomiting) Qty: 14 0RF famotidine [Pepcid] 20 mg tablet 20 mg PO BID Qty: 30 0RF
[2022-01-21 17:02] LABS: Basophils # (Auto) 0.05 K/mcL (0.00-0.30); Basophils % (Auto) 0.7 % (0.0-2.0); Eosinophils # (Auto) 0.24 K/mcL (0.00-0.70); Eosinophils % (Auto) 3.3 % (0.0-7.0); Hematocrit 34.9 % (40.1-51.0); Hemoglobin 11.4 g/dL (13.7-17.5); Lymphocytes # (Auto) 0.64 K/mcL (1.50-4.80); Lymphocytes % (Auto) 8.8 % (15.5-49.0); Mean Cell Volume 93.6 fL (80.0-100.0); Mean Corpuscular HGB Conc 32.7 g/dL (31.0-36.0); Mean Platelet Volume 9.7 fL (7.4-10.4); Monocytes # (Auto) 0.57 K/mcL (0.10-0.90); Monocytes % (Auto) 7.8 % (1.0-12.0); Neutrophils % (Auto) 78.3 % (38.0-78.0); Platelet Count 172 K/mcL (140-440); RBC 3.73 M/mcL (4.63-6.08); Red Cell Distribution Width 15.5 % (11.5-14.5); WBC 7.3 K/mcL (4.5-11.0)
[2022-01-21] MEDS ORDERED: GENTAMICIN SULFATE IV SCH (17:15)
[2022-01-21] MEDS ORDERED: SODIUM CHLORIDE 0.9% IV SCH (17:15)
[2022-01-21] MEDS ORDERED: ACETAMINOPHEN 650 MG/65 ML BAG IV ONE (17:24)
[2022-01-21 17:36] LABS: ALT/SGPT 19 U/L (<40); AST/SGOT 24 U/L (<40); Albumin 3.4 gm/dL (3.2-5.2); Albumin/Globulin Ratio 0.8 (1.0-2.3); Alkaline Phosphatase 192 U/L (39-117); Bilirubin,Total 0.5 mg/dL (0.1-1.0); Blood Urea Nitrogen 31 mg/dL (6-20); Calcium 9.5 mg/dL (8.6-10.4); Carbon Dioxide 17 mmol/L (22-30); Chloride 89 mmol/L (96-108); Globulin 4.1 gm/dL (2.2-3.7); Glomerular Filtration Rate 8; Glucose 184 mg/dL (70-105)
--- NOTE | 2022-01-21 17:48 | Emergency Department Note ---
Course Consultations Consultation #1: Dr. Butts, nephrology Time: 21:05 Consultation #2: Dr. Ford, hospitalist Time: 21:20 Vital Signs Vital signs: Vital Signs Temperature 100.2 F H 01/21/22 15:30 Pulse Rate 140 H 01/21/22 15:30 Respiratory Rate 32 H 01/21/22 15:30 Blood Pressure 151/101 01/21/22 15:30 Pulse Oximetry (%) 100 01/21/22 15:30 Oxygen Delivery Method 01/21/22 15:30 Temperature 99.2 F H 01/22/22 00:02 Pulse Rate 111 H 01/22/22 00:02 Respiratory Rate 20 01/22/22 00:02 Blood Pressure 131/77 01/22/22 00:02 Pulse Oximetry (%) 95 01/22/22 00:02 Oxygen Delivery Method 01/22/22 00:02 Oxygen Flow Rate (L/min) 2.0 01/22/22 00:02 MDM MDM Narrative Medical decision making narrative: Patient received in signout from Dr. Hernandez. 52-year-old male with past medical history of end-stage renal disease on hemodialysis who was sent over from dialysis clinic today for fever, chills, and rigors. He had cultures obtained from his dialysis catheter and Dr. Butts was concerned for infection of his catheter. He has been febrile and tachycardic but normotensive. He does have signs of sepsis with an elevated lactic acid level of 3.6. Chest x-ray with no infectious findings. He was given Zosyn, vancomycin, and gentamicin in the ED. I spoke again with Dr. Butts who recommends continuing antibiotics and following up the cultures from his dialysis line. Patient's glucose was elevated in the ED to 386. IV insulin given. He was also given 500cc of normal saline and IM Haldol for agitation as patient appeared to be sundowning this evening. I spoke with Dr. Ford, hospitalist, who is agreeable with admitting the patient and Dr. Butts will be on consult. Lab Data Lab results reviewed: Yes I reviewed the patient's lab results. Result diagrams: 01/21/22 16:15 01/21/22 16:15 Labs: Lab Results 01/21/22 01/21/22 01/21/22 Range/Units 16:14 16:14 16:15 WBC 7.3 (4.5-11.0) K/mcL RBC 3.73 L (4.63-6.08) M/mcL Hgb 11.4 L (13.7-17.5) g/dL Hct 34.9 L (40.1-51.0) % MCV 93.6 (80.0-100.0) fL MCH 30.6 (26.0-34.0) pg MCHC 32.7 (31.0-36.0) g/dL RDW 15.5 H (11.5-14.5) % Plt Count 172 (140-440) K/mcL MPV 9.7 (7.4-10.4) fL Immature Gran % (Auto) 1.1 H (0.0-0.5) % Neut % (Auto) 78.3 H (38.0-78.0) % Lymph % (Auto) 8.8 L (15.5-49.0) % [place] % (Auto) 7.8 (1.0-12.0) % Eos % (Auto) 3.3 (0.0-7.0) % Baso % (Auto) 0.7 (0.0-2.0) % Lymph # (Auto) 0.64 L (1.50-4.80) K/mcL [place] # (Auto) 0.57 (0.10-0.90) K/mcL Eos # (Auto) 0.24 (0.00-0.70) K/mcL Baso # (Auto) 0.05 (0.00-0.30) K/mcL Immature Gran # 0.08 H (0.00-0.05) K/mcl Absolute Neutrophils 5.70 (1.80-8.00) K/mcL ABG Methemoglobin TNP VBG pH TNP VBG pCO2 TNP VBG pO2 TNP VBG HCO3 TNP VBG Total CO2 TNP VBG O2 Saturation TNP VBG Base Excess TNP VBG Lactic Acid 3.6 H (0.5-2.0) mmol/L Carboxyhemoglobin TNP Total Hemoglobin TNP Sodium (133-145) mmol/L Potassium (3.3-5.1) mmol/L Chloride (96-108) mmol/L Carbon Dioxide (22-30) mmol/L Anion Gap (8.0-16.0) BUN (6-20) mg/dL Creatinine (0.7-1.2) mg/dL GFR Calculation Glucose (70-105) mg/dL Calcium (8.6-10.4) mg/dL Total Bilirubin (0.1-1.0) mg/dL AST (<40) U/L ALT (<40) U/L Alkaline Phosphatase (39-117) U/L Total Protein (5.9-8.4) gm/dL Albumin (3.2-5.2) gm/dL Globulin (2.2-3.7) gm/dL Albumin/Globulin Ratio (1.0-2.3) 01/21/22 01/21/22 Range/Units 16:15 17:57 WBC (4.5-11.0) K/mcL RBC (4.63-6.08) M/mcL Hgb (13.7-17.5) g/dL Hct (40.1-51.0) % MCV (80.0-100.0) fL MCH (26.0-34.0) pg MCHC (31.0-36.0) g/dL RDW (11.5-14.5) % Plt Count (140-440) K/mcL MPV (7.4-10.4) fL Immature Gran % (Auto) (0.0-0.5) % Neut % (Auto) (38.0-78.0) % Lymph % (Auto) (15.5-49.0) % [place] % (Auto) (1.0-12.0) % Eos % (Auto) (0.0-7.0) % Baso % (Auto) (0.0-2.0) % Lymph # (Auto) (1.50-4.80) K/mcL [place] # (Auto) (0.10-0.90) K/mcL Eos # (Auto) (0.00-0.70) K/mcL Baso # (Auto) (0.00-0.30) K/mcL Immature Gran # (0.00-0.05) K/mcl Absolute Neutrophils (1.80-8.00) K/mcL ABG Methemoglobin 0.4 VBG pH 7.52 H VBG pCO2 27.5 L VBG pO2 114.0 H VBG HCO3 21.9 L VBG Total CO2 22.7 L VBG O2 Saturation 94.2 H VBG Base Excess 0 VBG Lactic Acid (0.5-2.0) mmol/L Carboxyhemoglobin 3.4 H Total Hemoglobin 11.2 L Sodium 129 L (133-145) mmol/L Potassium 4.2 (3.3-5.1) mmol/L Chloride 89 L (96-108) mmol/L Carbon Dioxide 17 L (22-30) mmol/L Anion Gap 23.0 H (8.0-16.0) BUN 31 H (6-20) mg/dL Creatinine 7.1 H* (0.7-1.2) mg/dL GFR Calculation 8 Glucose 184 H (70-105) mg/dL Calcium 9.5 (8.6-10.4) mg/dL Total Bilirubin 0.5 (0.1-1.0) mg/dL AST 24 (<40) U/L ALT 19 (<40) U/L Alkaline Phosphatase 192 H (39-117) U/L Total Protein 7.5 (5.9-8.4) gm/dL Albumin 3.4 (3.2-5.2) gm/dL Globulin 4.1 H (2.2-3.7) gm/dL Albumin/Globulin Ratio 0.8 L (1.0-2.3) ED POC Tests ED POC Tests: HAROLDO - Influenza A Negative HAROLDO - Influenza B Negative HAROLDO - SARS Antigen Negative Discharge Plan Patient/Caregiver Discharge Instructions Pt seen by FLUE BLOWER/PA only: No Clinical Impression: Sepsis Patient Disposition: Xfer As Inpt ([facility]) Condition: Fair Discharge Date/Time: 01/21/22 22:29
[2022-01-21] MEDS ORDERED: INSULIN REGULAR, HUMAN 1 UNIT/0.01 ML UNIT IV ONE ×2 (17:49→21:04)
[2022-01-21 18:23] LABS: ABG Methemoglobin 0.4 % (0.4-1.5); Total Hemoglobin 11.2 gm/Dl (13.5-16.5); VBG Base Excess 0 (-2-3); VBG HCO3 21.9 mmol/L (24.0-28.0); VBG Oxygen Saturation 94.2 % (40.0-70.0); VBG PCO2 27.5 mmHg (41.0-51.0); VBG PH 7.52 U (7.32-7.42); VBG Total CO2 22.7 mmol/L (25.0-29.0)
[2022-01-21] MEDS ORDERED: HALOPERIDOL LACTATE 5 MG/ML VIAL IM ONE (21:04)
--- NOTE | 2022-01-21 21:39 | Internal Med History&Physical ---
HPI History of Present Illness Patient information: Note initiated : 01/21/22 at 9:34 pm Service Date, if different from initiated Date: [] Patient: Herman Hall 52 y/o M admitted on for AMS. Chief Complaint: [] History of present illness: Mr. Hall is a 52 year old male with a history of ESRD on hemodialysis via central line, diabetes mellitus, hypertension, hyperlipidemia, CVA, obesity who presented to the emergency department from hemodialysis after developing chills during hemodialysis. In the emergency department, the patient was found to have a fever and tachycardia. There is concern that the patient is septic, possibly secondary to a central line associated bloodstream infection. Hospital medicine was consulted for admission. Review of systems: Unable to obtain due to altered mental status. Physical exam Head: Atraumatic, normal inspection. Eyes: normal appearance, no scleral icterus. Neck: full ROM Respiratory: 3 L/min nasal cannula, tachypnea, clear breath sounds bilaterally. Cardiovascular: Regular tachycardia, right upper chest tunneled hemodialysis central line present, S1-S2. GI/Abdominal: Stented, soft, nontender, no guarding. Extremities: full range of motion, nontender, chronic appearing wound on right toe does not appear infected. Neurological: CN II-XII intact, intact motor, intact sensation. Skin: warm, normal color PFSH PFSH All Active Problems (Updated 01/21/22 @ 17:07 by Pepito Hernandez MD) Edema (Chronic) Diabetes mellitus, type II (Chronic) Essential hypertension, benign (Chronic) Mixed hyperlipidemia (Chronic) CKD (chronic kidney disease), stage IV (Chronic) Hypertensive renal disease (Chronic) Hyperparathyroidism due to renal insufficiency (Chronic) Proteinuria (Chronic) Gout due to renal impairment (Chronic) Anemia due to stage 4 chronic kidney disease (Chronic) CKD stage G5/A3, GFR <15 and albumin creatinine ratio >300 mg/g (Chronic) CKD (chronic kidney disease) stage 5, GFR less than 15 ml/min (Chronic) Accelerated hypertension (Chronic) Nephrotic range proteinuria (Chronic) Anemia due to stage 5 chronic kidney disease treated with darbepoetin (Chronic) Iron deficiency anemia due to chronic blood loss (Acute) ESRD on peritoneal dialysis (Chronic) Diabetic peripheral neuropathy (Acute) Peritonitis associated with peritoneal dialysis (Acute) Peritonitis, spontaneous bacterial (Acute) Uncontrolled diabetes mellitus with ESRD (end-stage renal disease) (Chronic) Hypoglycemia unawareness associated with type 2 diabetes mellitus (Acute) Leg pain (Acute) Hyperglycemia (Acute) Altered mental status (Acute) Type 2 diabetes mellitus with end-stage renal disease (Acute) Hypertension due to end stage renal disease on dialysis (Chronic) Obesity (BMI 30-39.9) (Acute) Anemia in end-stage renal disease (Acute) Mixed dyslipidemia (Acute) Delirium (Acute) SBP (spontaneous bacterial peritonitis) (Acute) Hyperphosphatemia (Acute) Fall (Acute) Acute bacterial peritonitis (Acute) Fall (Acute) Acute delirium (Acute) Nausea & vomiting (Acute) Dehydration (Acute) VRE (vancomycin-resistant Enterococci) (Acute) ESRD on hemodialysis (Acute) Diabetic toe ulcer (Acute) Fever and chills (Acute) Sepsis (Acute) Medical History Accelerated hypertension Refractory to beta-blockers high-dose ARB, high-dose alpha-1 antagonist and loop diuretic Did respond to minoxidil but developed side effects and doses above 5 mg twice daily Anemia due to stage 4 chronic kidney disease HgB 8-9 gm/dl so monitoring, low Fe so increased Fe replacement to 65 mg BID BP too high for SANTOS CKD (chronic kidney disease) stage 5, GFR less than 15 ml/min With nephrotic range proteinuria in the setting of diabetes and accelerated hypertension CKD (chronic kidney disease), stage IV DM +/- HTN with nonnephrotic proteinuria CKD stage G5/A3, GFR <15 and albumin creatinine ratio >300 mg/g Seems to be primarily diabetic nephropathy with hypertensive renal disease Decreased proteinuria to <3 gm/day but too little, to late Chose PD so will arrange PD catheter and training to follow Diabetes mellitus, type II Urine Prot/Cr 1.5 but GFR makes ARB therapy controversial Hemoglobin A1c 7.5% in January 2019 Edema Essential hypertension, benign Avoiding ACEi and ARB due to GFR Gout due to renal impairment Uric acid elevated on 150 mg/day allopurinol. GFR <20, lasix and metolizone likely cause Hyperparathyroidism due to renal insufficiency PTH 150-300 range Hypertensive renal disease Goal blood pressure is 140/90 Valsartan, Minoxidil, carvedilol, doxazosin, furosemide and prn metolazone Mixed hyperlipidemia Nephrotic range proteinuria This is gone up from 1.5 g to 4 g per 24 hours in the setting of uncontrolled hypertension He is on maximal dose losartan Proteinuria This is evidence of diabetic nephropathy Surgical History History of umbilical hernia repair (10/13/19) with mesh and laparoscopic PD catheter placement. Family History Mother Malignant neoplasm Father Coronary artery disease Diabetes mellitus Hypertension Sister Diabetes mellitus Social History (Updated 09/28/19 @ 12:39 by Coleman Butts MD) marital status: occupational status: employed physical activity: none smoking status: Never smoker alcohol intake frequency: holiday/special occasion only substance use type: does not use MEDS/ALLERGIES Home Medications and Allergies Home Medications Medication Instructions Recorded Confirmed Type lancets miscellaneous 04/26/15 10/22/20 History insulin lispro 200 unit/mL (3 mL) unit subcut .TID with meals 01/06/21 History subcutaneous pen (Humalog KwikPen U-200 Insulin) aspirin 81 mg tablet,delayed 81 mg PO QDAY #100 tabs 04/03/21 09/07/21 Rx release (Adult Low Dose Aspirin) insulin glargine U-300 conc 300 140 unit subcut QHS 04/03/21 09/07/21 History unit/mL (3 mL) subcutaneous pen (Toujeo Max U-300 SoloStar) atorvastatin 80 mg tablet 80 mg PO QDAY #90 tabs 06/27/21 09/07/21 Rx ferric citrate 210 mg iron tablet 420 mg PO .COMPLEX 09/03/21 09/07/21 Rx Hyperparathyroidism #300 tabs gemfibrozil 300 mg PO DAILY 09/07/21 09/07/21 History famotidine 20 mg tablet (Pepcid) 20 mg PO BID #30 tabs 09/23/21 Rx ondansetron 4 mg disintegrating 4 mg PO Q8H PRN nausea and 09/23/21 Rx tablet vomiting #14 tabs carvedilol 25 mg tablet 12.5 mg PO BID blood pressure 10/17/21 History amitriptyline 50 mg tablet 50 mg PO QHS Neuropathy #90 tabs 10/29/21 Rx vancomycin 2 gram/500 mL in 0.9 % 2 g (500 mL) IV ONCE Fever on HD 01/21/22 Rx sodium chloride intravenous #500 mL Allergies Allergy/AdvReac Type Severity Reaction Status Date / Time No Known Drug Allergies Allergy Verified 10/12/21 20:34 EXAM Constitutional Vitals: Temp Pulse Resp BP Pulse Ox O2 Del Method 100.0 F H 90 16 128/73 95 01/21/22 20:16 01/21/22 20:27 01/21/22 20:16 01/21/22 20:45 01/21/22 20:27 01/21/22 15:30 DATA Data Completed and Pending Labs: Labs from last 24 hours 01/21/22 01/21/22 01/21/22 17:57 16:15 16:15 WBC 7.3 RBC 3.73 L Hgb 11.4 L Hct 34.9 L MCV 93.6 MCH 30.6 MCHC 32.7 RDW 15.5 H Plt Count 172 MPV 9.7 Immature Gran % (Auto) 1.1 H Neut % (Auto) 78.3 H Lymph % (Auto) 8.8 L Rooks % (Auto) 7.8 Eos % (Auto) 3.3 Baso % (Auto) 0.7 Lymph # (Auto) 0.64 L Rooks # (Auto) 0.57 Eos # (Auto) 0.24 Baso # (Auto) 0.05 Immature Gran # 0.08 H Absolute Neutrophils 5.70 ABG Methemoglobin 0.4 VBG pH 7.52 H VBG pCO2 27.5 L VBG pO2 114.0 H VBG HCO3 21.9 L VBG Total CO2 22.7 L VBG O2 Saturation 94.2 H VBG Base Excess 0 VBG Lactic Acid Carboxyhemoglobin 3.4 H Total Hemoglobin 11.2 L Sodium 129 L Potassium 4.2 Chloride 89 L Carbon Dioxide 17 L Anion Gap 23.0 H BUN 31 H Creatinine 7.1 H* GFR Calculation 8 Glucose 184 H Calcium 9.5 Total Bilirubin 0.5 AST 24 ALT 19 Alkaline Phosphatase 192 H Total Protein 7.5 Albumin 3.4 Globulin 4.1 H Albumin/Globulin Ratio 0.8 L 01/21/22 01/21/22 16:14 16:14 WBC RBC Hgb Hct MCV MCH MCHC RDW Plt Count MPV Immature Gran % (Auto) Neut % (Auto) Lymph % (Auto) Rooks % (Auto) Eos % (Auto) Baso % (Auto) Lymph # (Auto) Rooks # (Auto) Eos # (Auto) Baso # (Auto) Immature Gran # Absolute Neutrophils ABG Methemoglobin TNP VBG pH TNP VBG pCO2 TNP VBG pO2 TNP VBG HCO3 TNP VBG Total CO2 TNP VBG O2 Saturation TNP VBG Base Excess TNP VBG Lactic Acid 3.6 H Carboxyhemoglobin TNP Total Hemoglobin TNP Sodium Potassium Chloride Carbon Dioxide Anion Gap BUN Creatinine GFR Calculation Glucose Calcium Total Bilirubin AST ALT Alkaline Phosphatase Total Protein Albumin Globulin Albumin/Globulin Ratio A/P Narrative A/P Narrative: Assessment: 52 year old male with a history of ESRD on hemodialysis via hemodialysis central line, HTN, HLD, DM, CVA, obesity admitted for sepsis possibly secondary to a CLABSI. No evidence of pneumonia on chest x-ray, unable to obtain a urine sample to evaluate for UTI, physical exam notable for erythema around the hemodialysis central line insertion site, otherwise was not suggestive of an infectious #Sepsis possibly secondary to bacteremia vs other #Acute hypoxic respiratory failure #Concern for CLABSI #Moderate hyponatremia #ESRD on hemodialysis via central line #Diabetes mellitus #Hypertension #Hyperlipidemia #History of stroke #Obesity BMI 37 Plan -Vancomycin IV and Zosyn for now. -Received IV fluid in the ED, monitor volume status. -Follow peripheral and central line blood cultures. -Trend lactic acid. -Monitor potassium level and volume status. -Insulin infusion until sepsis physiology has resolved. -Hold home antihypertensives for now. -Home medication reconciliation, continue important meds. -Nephrology consulted for HD management. -NPO for now. -DVT ppx: Heparin SQ -Code status: DNR/DNI Time Spent With Patient Time: Total time spent is greater than 50% in coordination of care (as documented) at patient's floor/unit and/or counseling patient:
[2022-01-21] MEDS ORDERED: SENNOSIDES 1 TABLET PO PRN (22:47)
[2022-01-21] MEDS ORDERED: LACTULOSE 20 GM/30 ML ORAL.SOL PO PRN (22:47)
[2022-01-21] MEDS ORDERED: ACETAMINOPHEN 325 MG TABLET PO PRN (22:47)
[2022-01-21] MEDS ORDERED: INSULIN REGULAR, HUMAN 50 UNIT in 0.9 % SODIUM CHLORIDE 99.5 ML IV SCH (22:47)
[2022-01-21] MEDS ORDERED: ONDANSETRON 4 MG/2 ML VIAL IV PRN (22:47)
[2022-01-21] MEDS ORDERED: PIPERACILLIN SODIUM/TAZOBACTAM 4.5 GM in DEXTROSE 5% IN WATER 50 ML IV SCH (22:47)
[2022-01-21] MEDS: 0.9 % SODIUM CHLORIDE 250 ML IV SCH (23:12)
[2022-01-21] MEDS ORDERED: INSULIN REGULAR, HUMAN 1 UNIT/0.01 ML UNIT ONE (23:13)
[2022-01-21] MEDS: 0.9 % SODIUM CHLORIDE 10 ML SYRINGE IV SCH (23:45)
[2022-01-21] MEDS ORDERED: VANCOMYCIN 1,500 MG in 0.9 % SODIUM CHLORIDE 500 ML IV ONE (23:52)
[2022-01-21] MEDS: VANCOMYCIN PER PHARMACY IV ONE (23:53)
[2022-01-22] MEDS: VANCOMYCIN PER PHARMACY IV ONE (00:11)
[2022-01-22] MEDS ORDERED: HALOPERIDOL LACTATE 5 MG/ML VIAL IM PRN ×2 (00:14→06:00)
[2022-01-22] MEDS ORDERED: HALOPERIDOL LACTATE 5 MG/ML VIAL ONE (01:40)
[2022-01-22] MEDS ORDERED: HYDROmorphone 0.5 MG/0.5 ML SYRINGE IV PRN (02:53)
[2022-01-22] MEDS ORDERED: AMITRIPTYLINE 25 MG TABLET PO ONE (02:55)
[2022-01-22] MEDS: HYDROcodone/APAP 5/325MG TABLET PO PRN (03:54)
[2022-01-22] MEDS ORDERED: HYDROcodone/APAP 5/325MG TABLET PO ONE (04:04)
[2022-01-22] MEDS ORDERED: HYDROmorphone 0.5 MG/0.5 ML SYRINGE ONE (04:05)
[2022-01-22] MEDS ORDERED: CARVEDILOL 12.5 MG TABLET PO ONE (04:45)
[2022-01-22] MEDS: CARVEDILOL 6.25 MG TABLET ONE ×2 (05:03)
[2022-01-22] MEDS ORDERED: VANCOMYCIN PER PHARMACY IV SCH (06:00)
[2022-01-22] MEDS ORDERED: PIPERACILLIN SODIUM/TAZOBACTAM 4.5 GM in DEXTROSE 5% IN WATER 50 ML IV SCH ×2 (06:00→12:00)
[2022-01-22] MEDS: 0.9 % SODIUM CHLORIDE 10 ML SYRINGE IV SCH ×3 (06:04→21:07)
[2022-01-22 07:09] LABS: Hematocrit 29.6 % (40.1-51.0); Hemoglobin 9.8 g/dL (13.7-17.5); Mean Cell Volume 91.6 fL (80.0-100.0); Mean Corpuscular HGB Conc 33.1 g/dL (31.0-36.0); Mean Platelet Volume 9.7 fL (7.4-10.4); Platelet Count 141 K/mcL (140-440); RBC 3.23 M/mcL (4.63-6.08); Red Cell Distribution Width 15.6 % (11.5-14.5); WBC 5.8 K/mcL (4.5-11.0)
[2022-01-22 08:19] LABS: Anisocytosis RARE (None Seen); Band Neutrophils % 2 % (0-10); Basophils % (Manual) 1 % (0-2); Eosinophils % (Manual) 1 % (0-7); Hypochromasia 1+ (None Seen); Lymphocytes % 12 % (15-49); Monocytes % (Manual) 4 % (1-12); Platelet Estimate NORMAL (Normal); RBC Morphology ABNORMAL (Normal); Segmented Neutrophils % 80 % (38-78)
--- NOTE | 2022-01-22 08:19 | Nephrology Consult Note ---
HPI Data of Consult Patient: known to practice within the last 3 years Consult date: 01/22/22 Primary Care Provider: Delmi Carey Consult Narrative Patient Information: Note initiated : 01/22/22 at 8:01 am Service Date, if different from initiated Date: [] Patient: Herman Hall 52 y/o M admitted on 01/21/22 for AMS. Chief Complaint: fever and alteration in MS[] Chief complaint: Fever and alteration in MS Reason for consult: ESRD cc:: CC: Marco Ford MD 52 yr old male with HTN, DM and ESRD initially treated with CCPD until peritonitis (poor hygene as multiple episodes of peritonitis 1 of which was due to waking up and finging his catheter disconnected and his cat licking it!). As he had mesh in place for ventral hernia repair and he was not performing CCPD efficiently and/or with good compliance, he was switched to incenter HD via cuffed HD catheter and and left AVF that is "not ready for prime time". The HD catheter was pulled out by "accident" during initial week of HD. Within a month there was a cuff exposure requiring removal and replacement of the catheter. Latelt, he's taken to removing the Tegaderm covering at the exit site. 01/21/2022 he present ti HD clinic with fever, delirium, low BP (for HIM) and tachycardia. Blood cultures from peripheral site (AVF) and CVC were obtained and the patient underwent HD with worsening of his delirium, BP as low as 90/50 and HR > 120. He was sent to ED with his 2 gm loading dose of VANCOMYCIN which as completed. The ER doctor started PIP/TAYO but I spoke to him and requested 140 mg of Gent be given as IV access will quickly become a problem in this patient. Plan is to remove catheter if/when cultures turn positive, continue culture directed ABx therapy, obtain a baseline ECHO. Once the catheter is removed and his blood cultures turn negative, he can have his cuffed catheter replaced by Dr Bernard at [facility]. This may mean up to a week of NO DIALYSIS or using a Sagar catheter which will necessitate hospitalization Vital Signs Temp Pulse Resp BP Pulse Ox O2 Del Method O2 Flow Rate 01/22/22 08:01 36.2 C 101 H 28 H 122/82 99 Nasal Cannula 3 01/22/22 07:01 104 H 15 135/85 100 Nasal Cannula 3 01/22/22 06:01 120 H 17 146/76 98 Nasal Cannula 3 01/22/22 05:01 123 H 27 H 150/83 93 Nasal Cannula 3 01/22/22 04:07 36.7 C 129 H 21 155/95 97 Nasal Cannula 2.0 01/22/22 03:01 129 H 26 H 174/66 98 01/22/22 02:01 118 H 37 H 152/67 98 01/22/22 01:01 124 H 19 160/89 100 01/22/22 00:02 37.3 C H 111 H 20 131/77 95 Nasal Cannula 2.0 01/21/22 22:03 120 H 107/64 94 01/21/22 22:02 114 H 14 97 01/21/22 22:01 120 H 22 126/81 97 01/21/22 21:47 25 H 112/66 01/21/22 21:53 36.8 C 01/21/22 21:37 119 H 15 128/66 98 01/21/22 21:36 121 H 15 98 01/21/22 20:45 128/73 01/21/22 20:27 90 122/79 95 01/21/22 20:16 37.8 C H 107 H 16 93 01/21/22 19:47 124 H 19 118/101 94 01/21/22 19:30 22 100/48 01/21/22 19:01 125 H 31 H 152/137 100 01/21/22 18:31 131 H 19 123/105 99 01/21/22 18:16 38.5 C H 128 H 18 136/96 93 01/21/22 18:01 133 H 21 126/80 96 01/21/22 17:54 136 H 20 132/79 99 01/21/22 17:31 25 H 135/67 100 01/21/22 17:42 39.4 C H 01/21/22 17:01 139 H 25 H 136/75 97 01/21/22 16:31 139 H 23 H 144/72 97 01/21/22 17:23 39.4 C H 01/21/22 16:01 140 H 23 H 135/67 100 01/21/22 15:55 144 H 25 H 140/110 100 01/21/22 15:40 145 H 24 H 154/101 100 01/21/22 15:30 37.9 C H 140 H 32 H 151/101 100 Room Air Intake and Output 01/21/22 01/22/22 01/22/22 21:59 05:59 13:59 Intake Total 1357 34.5 71 Balance 1357 34.5 71 Intake: IV 1357 34.5 71 Sodium Chloride 0.9% 500 ml @ 1000 Wide Open IV BOLUS ONE Rx#: [id number] Gentamicin Sulfate 140 mg In 242 11.5 Sodium Chloride 0.9% 250 ml @ 250 mls/hr IV ONCE [facility] Rx#: [id number] HumuLIN R 50 UNIT In Sodium 23 21 Chloride 0.9% 99.5 ml @ Per Protocol IV DUR VALENCIA Rx#: [id number] Zosyn 3.375 gm In Dextrose 5% 50 in Water 50 ml @ 100 mls/hr IV ONCE ONE Rx#:[id number] Zosyn 4.5 gm In Dextrose 5% in 50 Water 50 ml @ 100 mls/hr IV Q12H [facility] Rx#:[id number] Other: Weight 117.934 kg 117.934 kg So far 1 set of 2 from yesterday na diphtheroids on preliminary verbal report from [facility]. CXR 01/21/2022 Right IJ double-lumen catheter tip overlies the right atrium. The heart size, mediastinum and pulmonary vessels are unremarkable. The lungs are clear. There are no effusions. The bones and soft tissues are within normal limits. IMPRESSION: Normal chest. Review of Systems All systems: reviewed and no additional remarkable complaints except as stated Constitutional Additional comments: less toxic. more alert than 01/21/2022 EENT Eyes: Present as per HPI Ears: Present as per HPI Nose, mouth and throat: Present as per HPI Cardiovascular Cardiovascular: Present edema and rapid heart rate Respiratory Respiratory: Present dyspnea Gastrointestinal Gastrointestinal: Absent abdominal pain Integumentary Integumentary: Absent bleeding lesions, furuncle, skin ulcer or jaundice Neurological Neurological: Present as per HPI Psychiatric Psychiatric: Present memory loss Hematologic/Lymphatic Hematologic/Lymphatic: Present easy bruising Allergic/Immunologic Allergic/Immunologic: Present as per HPI PFSH PFSH All Active Problems (Updated 01/22/22 @ 17:04 by Coleman Butts MD) Infection due to diphtheroid bacteria (Acute) Sepsis (Acute) Fever and chills (Acute) Diabetic toe ulcer (Acute) ESRD on hemodialysis (Acute) VRE (vancomycin-resistant Enterococci) (Acute) Nausea & vomiting (Acute) Dehydration (Acute) Peritonitis associated with peritoneal dialysis (Acute) ESRD on peritoneal dialysis (Chronic) Hyperphosphatemia (Acute) Fall (Acute) Acute bacterial peritonitis (Acute) Fall (Acute) Acute delirium (Acute) Hyperglycemia (Acute) Altered mental status (Acute) Type 2 diabetes mellitus with end-stage renal disease (Acute) Hypertension due to end stage renal disease on dialysis (Chronic) Obesity (BMI 30-39.9) (Acute) Anemia in end-stage renal disease (Acute) Mixed dyslipidemia (Acute) Delirium (Acute) SBP (spontaneous bacterial peritonitis) (Acute) Leg pain (Acute) Hypoglycemia unawareness associated with type 2 diabetes mellitus (Acute) Uncontrolled diabetes mellitus with ESRD (end-stage renal disease) (Chronic) Peritonitis, spontaneous bacterial (Acute) Diabetes mellitus, type II (Chronic) Essential hypertension, benign (Chronic) CKD (chronic kidney disease), stage IV (Chronic) Hypertensive renal disease (Chronic) Hyperparathyroidism due to renal insufficiency (Chronic) Proteinuria (Chronic) Gout due to renal impairment (Chronic) Anemia due to stage 4 chronic kidney disease (Chronic) CKD stage G5/A3, GFR <15 and albumin creatinine ratio >300 mg/g (Chronic) CKD (chronic kidney disease) stage 5, GFR less than 15 ml/min (Chronic) Accelerated hypertension (Chronic) Nephrotic range proteinuria (Chronic) Anemia due to stage 5 chronic kidney disease treated with darbepoetin (Chronic) Edema (Chronic) Mixed hyperlipidemia (Chronic) Iron deficiency anemia due to chronic blood loss (Acute) Diabetic peripheral neuropathy (Acute) Medical History Accelerated hypertension Refractory to beta-blockers high-dose ARB, high-dose alpha-1 antagonist and loop diuretic Did respond to minoxidil but developed side effects and doses above 5 mg twice daily Anemia due to stage 4 chronic kidney disease HgB 8-9 gm/dl so monitoring, low Fe so increased Fe replacement to 65 mg BID BP too high for SANTOS CKD (chronic kidney disease) stage 5, GFR less than 15 ml/min With nephrotic range proteinuria in the setting of diabetes and accelerated hypertension CKD (chronic kidney disease), stage IV DM +/- HTN with nonnephrotic proteinuria CKD stage G5/A3, GFR <15 and albumin creatinine ratio >300 mg/g Seems to be primarily diabetic nephropathy with hypertensive renal disease Decreased proteinuria to <3 gm/day but too little, to late Chose PD so will arrange PD catheter and training to follow Diabetes mellitus, type II Urine Prot/Cr 1.5 but GFR makes ARB therapy controversial Hemoglobin A1c 7.5% in January 2019 Edema Essential hypertension, benign Avoiding ACEi and ARB due to GFR Gout due to renal impairment Uric acid elevated on 150 mg/day allopurinol. GFR <20, lasix and metolizone likely cause Hyperparathyroidism due to renal insufficiency PTH 150-300 range Hypertensive renal disease Goal blood pressure is 140/90 Valsartan, Minoxidil, carvedilol, doxazosin, furosemide and prn metolazone Mixed hyperlipidemia Nephrotic range proteinuria This is gone up from 1.5 g to 4 g per 24 hours in the setting of uncontrolled hypertension He is on maximal dose losartan Proteinuria This is evidence of diabetic nephropathy Surgical History History of umbilical hernia repair (10/13/19) with mesh and laparoscopic PD catheter placement. Family History Mother Malignant neoplasm Father Coronary artery disease Diabetes mellitus Hypertension Sister Diabetes mellitus Social History (Updated 09/28/19 @ 12:39 by Coleman Butts MD) marital status: occupational status: employed physical activity: none smoking status: Never smoker alcohol intake frequency: holiday/special occasion only substance use type: does not use MEDS/ALLERGIES Home Medications and Allergies Home Medications Medication Instructions Recorded Confirmed Type lancets 1 lancet miscellaneous AC 04/26/15 01/22/22 History insulin lispro 200 unit/mL (3 mL) See Rx Instructions .Route .COMPLEX 01/06/21 01/22/22 History subcutaneous pen (Humalog KwikPen U-200 Insulin) aspirin 81 mg tablet,delayed 81 mg PO QDAY #100 tabs 04/03/21 01/22/22 Rx release (Adult Low Dose Aspirin) insulin glargine U-300 conc 300 140 unit subcut QHS 04/03/21 01/22/22 History unit/mL (3 mL) subcutaneous pen (Toujeo Max U-300 SoloStar) ferric citrate 210 mg iron tablet 420 mg PO .COMPLEX 09/03/21 01/22/22 Rx Hyperparathyroidism #300 tabs gemfibrozil 150 mg PO HS 09/07/21 01/22/22 History famotidine 20 mg tablet (Pepcid) 20 mg PO BID #30 tabs 09/23/21 01/22/22 Rx ondansetron 4 mg disintegrating 4 mg PO Q8H PRN nausea and 09/23/21 01/22/22 Rx tablet vomiting #14 tabs amitriptyline 50 mg tablet 50 mg PO QHS Neuropathy #90 tabs 10/29/21 01/22/22 Rx vancomycin 2 gram/500 mL in 0.9 % 2 g (500 mL) IV ONCE Fever on HD 01/21/22 01/22/22 Rx sodium chloride intravenous #500 mL atorvastatin 80 mg tablet 80 mg PO HS 01/22/22 01/22/22 History Allergies Allergy/AdvReac Type Severity Reaction Status Date / Time No Known Drug Allergies Allergy Verified 10/12/21 20:34 Physical Examination Vital Signs Vital signs: Temp Pulse Resp BP Pulse Ox O2 Del Method O2 Flow Rate 36.7 C 129 H 21 155/95 97 2.0 01/22/22 04:07 01/22/22 04:07 01/22/22 04:07 01/22/22 04:07 01/22/22 04:07 01/22/22 04:07 01/22/22 04:07 General Appearance General appearance: well-developed and chronically ill EENT EENT: mucous membranes dry Neck Neck: no JVD Respiratory Respiratory: course breath sounds Cardiovascular Cardiology: no murmurs Gastrointestinal Gastrointestinal: no tenderness and no guarding Integumentary Integumentary: no rash Neurologic Neurologic: no focal deficit, no asterixis, confused (improved over past 24 hours since seen in ER/HD units) and CN 3-12 intact Musculoskeletal Musculoskeletal: no deformities Psychiatric Psychiatric: mood/affect appropriate (back to his baseline) Results Lab Results Result Diagrams: 01/22/22 12:06 01/22/22 06:33 Lab results: Most recent lab results Calcium 9.5 mg/dL (8.6-10.4) 01/21/22 16:15 A/P Assessment and plan (1) Fever and chills: Assessment and plan: Doing better after IV vanco I would stop PIP/Tayo Check post HD vanco dose tomorrow Keep HD catheter in place for now Plan: Stop PIP/TAYO Redose when Vanco less than 18 Leave HD catheter in place Less toxic Status: Acute (2) ESRD on hemodialysis: Plan: HD for tomorrow with post HD random Vanco level Status: Acute (3) Infection due to diphtheroid bacteria: Assessment and plan: This is the ONE patient group at RISK for infection including ENDOCARDITIS with Diphtheroids so do not regard as a contaminant. Plan: Continue vanco and gent...stop piptaz. Redose vanco in post HD level < 18 and Gent level < 1.5 Status: Acute Comment: As above awaiting final ID Time Spent With Patient Time: Total time spent is greater than 50% in coordination of care (as documented) at patient's floor/unit and/or counseling patient:
[2022-01-22 08:25] LABS: ALT/SGPT 29 U/L (<40); AST/SGOT 37 U/L (<40); Albumin 3.2 gm/dL (3.2-5.2); Albumin/Globulin Ratio 1.3 (1.0-2.3); Alkaline Phosphatase 161 U/L (39-117); Bilirubin,Direct < 0.2 mg/dL (0-0.3); Bilirubin,Total 0.3 mg/dL (0.1-1.0); Blood Urea Nitrogen 42 mg/dL (6-20); Calcium 9.1 mg/dL (8.6-10.4); Carbon Dioxide 21 mmol/L (22-30); Chloride 89 mmol/L (96-108); Globulin 2.5 gm/dL (2.2-3.7); Glomerular Filtration Rate 6; Glucose 201 mg/dL (70-105); Lactate Dehydrogenase 254 U/L (135-225); Phosphorous 6.7 mg/dL (2.5-4.5); Triglycerides 693 mg/dL (<150); Uric Acid 7.3 mg/dL (2.5-8.0)
[2022-01-22] MEDS: HEPARIN 5,000 UNIT/ML VIAL SQ SCH ×2 (09:50→21:06)
[2022-01-22] MEDS: DOCUSATE SODIUM 100 MG CAPSULE PO SCH ×2 (09:50→21:06)
[2022-01-22] MEDS: INSULIN LISPRO 1 UNIT/0.01 ML UNIT SQ SCH ×3 (11:05→21:06)
[2022-01-22] MEDS: 0.9 % SODIUM CHLORIDE 250 ML IV SCH (11:27)
[2022-01-22] MEDS ORDERED: INSULIN GLARGINE, HUMAN 1 UNIT/0.01 ML SQ SCH (21:00)
[2022-01-22] MEDS: AMITRIPTYLINE 25 MG TABLET PO SCH (21:06)
[2022-01-22 21:39] LABS: Appearance,Urine Clear (Clear); Bilirubin,Urine Negative (Negative); Color,Urine Yellow; Culture Indicated,Urine No; Glucose,Urine (UA) Negative (Negative); Ketones,Urine Negative (Negative); Leukocyte Esterase,Urine Negative /uL (Negative); Mucus,Urine FEW /hpf; Nitrate,Urine Negative (Negative); PH,Urine 6.5 (5.0-9.0); Protein,Urine >=300 mg/dL mg/dL (Negative); Specific Gravity,Urine 1.015 (1.000-1.035); Urine Blood Moderate ery/mcL (Negative); Urine RBC 1 /hpf (0-3); Urine Squamous Epithelial Cell 0 /hpf (0-4); Urine WBC 3 /hpf (0-4); Urobilinogen,Urine Normal
[2022-01-23] MEDS: 0.9 % SODIUM CHLORIDE 10 ML SYRINGE IV SCH ×3 (05:44→21:33)
[2022-01-23 07:12] LABS: Hematocrit 28.8 % (40.1-51.0); Hemoglobin 9.4 g/dL (13.7-17.5); Mean Cell Volume 93.5 fL (80.0-100.0); Mean Corpuscular HGB Conc 32.6 g/dL (31.0-36.0); Mean Platelet Volume 10.5 fL (7.4-10.4); Platelet Count 154 K/mcL (140-440); RBC 3.08 M/mcL (4.63-6.08); Red Cell Distribution Width 15.4 % (11.5-14.5); WBC 4.6 K/mcL (4.5-11.0)
[2022-01-23] MEDS: INSULIN LISPRO 1 UNIT/0.01 ML UNIT SQ SCH ×4 (08:00→21:32)
[2022-01-23 08:42] LABS: ALT/SGPT 25 U/L (<40); AST/SGOT 26 U/L (<40); Albumin 2.8 gm/dL (3.2-5.2); Albumin/Globulin Ratio 0.8 (1.0-2.3); Alkaline Phosphatase 154 U/L (39-117); Bilirubin,Direct < 0.2 mg/dL (0-0.3); Bilirubin,Total 0.2 mg/dL (0.1-1.0); Blood Urea Nitrogen 56 mg/dL (6-20); Calcium 9.4 mg/dL (8.6-10.4); Carbon Dioxide 20 mmol/L (22-30); Chloride 96 mmol/L (96-108); Globulin 3.4 gm/dL (2.2-3.7); Glomerular Filtration Rate 5; Glucose 81 mg/dL (70-105); Lactate Dehydrogenase 251 U/L (135-225); Phosphorous 7.8 mg/dL (2.5-4.5); Triglycerides 722 mg/dL (<150); Uric Acid 9.5 mg/dL (2.5-8.0)
--- NOTE | 2022-01-23 08:56 | Internal Med Progress Note ---
SUBJECTIVE Subjective Patient information: Note initiated : 01/23/22 at 8:50 am Service Date, if different from initiated Date: [] Patient: Herman Hall 52 y/o M admitted on 01/21/22 for AMS. Chief Complaint: [] Interval history: Mr. Hall is a 52 year old male with a history of ESRD on hemodialysis via central line, diabetes mellitus, hypertension, hyperlipidemia, CVA, obesity who presented to the emergency department from hemodialysis after developing chills during hemodialysis. In the emergency department, the patient was found to have a fever and tachycardia. There is concern that the patient is septic, possibly secondary to a central line associated bloodstream infection. Hospital medicine was consulted for admission. 01/23: Patient is more alert and oriented today, afebrile overnight, blood culture growing gram-positive bacillus resembling diphtheroids. Discussed with nephrology, continue vancomycin IV, discontinued Zosyn per nephrology's recommendation. Received gentamicin IV in the ED. Increase Lantus to 50 units at bedtime. Obtain transthoracic echocardiogram. [facility].. Physical exam Head: Atraumatic, normal inspection. Eyes: normal appearance, no scleral icterus. Neck: full ROM Respiratory: 2 L/min nasal cannula, no respiratory distress. Cardiovascular: Heart rate in the 90s, right upper chest tunneled hemodialysis central line present. GI/Abdominal: soft, nontender, no guarding. Extremities: full range of motion, nontender, chronic appearing wound on right toe does not appear infected. Neurological: CN II-XII intact, intact motor, intact sensation. Psychiatric: Normal mood Skin: warm, normal color Constitutional Vitals: Vital Signs Temp Pulse Resp BP Pulse Ox O2 Del Method O2 Flow Rate 98.2 F 91 H 19 131/67 96 2 01/23/22 04:01 01/23/22 04:01 01/23/22 04:01 01/23/22 04:01 01/23/22 04:01 01/23/22 06:47 01/23/22 06:47 Period Temp Pulse Resp BP Sys/Zelaya Pulse Ox O2 Del Method O2 Flow Rate Last 24 Hr 97.3 F-98.7 F 85-105 14-32 98-146/52-84 79-100 Nasal Cannula- Room Air 1.5-3 Intake and Output 01/22/22 01/23/22 01/23/22 21:59 05:59 13:59 Intake Total 240 360 Output Total 550 Balance -310 360 Weight 109.905 kg Intake & Output: Intake & Output 01/22/22 01/23/22 01/23/22 21:59 05:59 13:59 Intake Total 240 360 Output Total 550 Balance -310 360 Weight 109.905 kg Intake: Oral 240 360 Output: Urine Catheter Amount 550 Other: Meal Dinner Percent of Meal Consumed 75% Feeding Ability Assist with Tray Set Up Stool Size Moderate Stool Color Brown Yellow Stool Consistency Normal for Patient Formed # Bowel Movements 1 OBJ DATA Labs CBC & Chem 7: 01/23/22 05:31 01/23/22 05:31 Labs: Abnormal Lab Results 01/23/22 01/23/22 01/22/22 05:31 05:31 14:34 RBC 3.08 L Hgb 9.4 L Hct 28.8 L RDW 15.4 H MPV 10.5 H Immature Gran % (Auto) Neut % (Auto) Lymph % (Auto) Lymph # (Auto) Seg Neutrophils % Lymphocytes % Immature Gran # RBC Morphology Hypochromasia Anisocytosis VBG pH VBG pCO2 VBG pO2 VBG HCO3 VBG Total CO2 VBG O2 Saturation VBG Lactic Acid Carboxyhemoglobin Total Hemoglobin Sodium Chloride Carbon Dioxide 20 L Anion Gap 19.0 H BUN 56 H Creatinine 10.9 H* Glucose Uric Acid 9.5 H Phosphorus 7.8 H* GGT 136 H Alkaline Phosphatase 154 H Lactate Dehydrogenase 251 H Total Protein Albumin 2.8 L Globulin Albumin/Globulin Ratio 0.8 L Triglycerides 722 H Urine Protein >=300 mg/dl A Urine Occult Blood Moderate A Urine Mucus Few A 01/22/22 01/22/22 01/22/22 12:06 06:34 06:33 RBC 3.23 L Hgb 9.8 L 9.8 L Hct 29.6 L RDW 15.6 H MPV Immature Gran % (Auto) Neut % (Auto) Lymph % (Auto) Lymph # (Auto) Seg Neutrophils % 80 H Lymphocytes % 12 L Immature Gran # RBC Morphology Abnormal A Hypochromasia 1+ A Anisocytosis Rare A VBG pH VBG pCO2 VBG pO2 VBG HCO3 VBG Total CO2 VBG O2 Saturation VBG Lactic Acid Carboxyhemoglobin Total Hemoglobin Sodium 128 L Chloride 89 L Carbon Dioxide 21 L Anion Gap 18.0 H BUN 42 H Creatinine 9.1 H* Glucose 201 H Uric Acid Phosphorus 6.7 H* GGT 130 H Alkaline Phosphatase 161 H Lactate Dehydrogenase 254 H Total Protein 5.7 L Albumin Globulin Albumin/Globulin Ratio Triglycerides 693 H Urine Protein Urine Occult Blood Urine Mucus 01/21/22 01/21/22 01/21/22 17:57 16:15 16:15 RBC 3.73 L Hgb 11.4 L Hct 34.9 L RDW 15.5 H MPV Immature Gran % (Auto) 1.1 H Neut % (Auto) 78.3 H Lymph % (Auto) 8.8 L Lymph # (Auto) 0.64 L Seg Neutrophils % Lymphocytes % Immature Gran # 0.08 H RBC Morphology Hypochromasia Anisocytosis VBG pH 7.52 H VBG pCO2 27.5 L VBG pO2 114.0 H VBG HCO3 21.9 L VBG Total CO2 22.7 L VBG O2 Saturation 94.2 H VBG Lactic Acid Carboxyhemoglobin 3.4 H Total Hemoglobin 11.2 L Sodium 129 L Chloride 89 L Carbon Dioxide 17 L Anion Gap 23.0 H BUN 31 H Creatinine 7.1 H* Glucose 184 H Uric Acid Phosphorus GGT Alkaline Phosphatase 192 H Lactate Dehydrogenase Total Protein Albumin Globulin 4.1 H Albumin/Globulin Ratio 0.8 L Triglycerides Urine Protein Urine Occult Blood Urine Mucus 01/21/22 16:14 RBC Hgb Hct RDW MPV Immature Gran % (Auto) Neut % (Auto) Lymph % (Auto) Lymph # (Auto) Seg Neutrophils % Lymphocytes % Immature Gran # RBC Morphology Hypochromasia Anisocytosis VBG pH VBG pCO2 VBG pO2 VBG HCO3 VBG Total CO2 VBG O2 Saturation VBG Lactic Acid 3.6 H Carboxyhemoglobin Total Hemoglobin Sodium Chloride Carbon Dioxide Anion Gap BUN Creatinine Glucose Uric Acid Phosphorus GGT Alkaline Phosphatase Lactate Dehydrogenase Total Protein Albumin Globulin Albumin/Globulin Ratio Triglycerides Urine Protein Urine Occult Blood Urine Mucus Meds: Medications Acetaminophen (Acetaminophen 325 Mg Tablet) 650 mg PO Q6HP PRN; Protocol PRN Reason: Per Pain Protocol/Fever > 101 Last Admin: 01/22/22 12:46 Dose: 650 mg Hydrocodone Bitart/Acetaminophen (Hydrocodone/Apap 5/325mg Tablet) 1 tab PO Q6HP PRN; Protocol PRN Reason: Per Pain Protocol Last Admin: 01/22/22 03:54 Dose: 1 tab Amitriptyline HCl (Amitriptyline 25 Mg Tablet) 50 mg PO [facility] Last Admin: 01/22/22 21:06 Dose: 50 mg Diagnostic Test (Pha) (Accu-Chek 1 Each Strip) 1 each FS [facility] Last Admin: 01/23/22 07:59 Dose: 1 each Docusate Sodium (Docusate Sodium 100 Mg Capsule) 100 mg PO BID [facility] Last Admin: 01/22/22 21:06 Dose: 100 mg Haloperidol Lactate (Haloperidol Lactate 5 Mg/Ml Vial) 5 mg IM Q4HP PRN PRN Reason: Agitation Heparin Sodium (Porcine) (Heparin 5,000 Unit/Ml Vial) 5,000 unit SQ Q12 [facility] Last Admin: 01/22/22 21:06 Dose: 5,000 unit Hydromorphone HCl (Hydromorphone 0.5 Mg/0.5 Ml Syringe) 0.5 mg IV Q4HP PRN; Protocol PRN Reason: Per Pain Protocol Last Admin: 01/22/22 03:54 Dose: 0.5 mg Insulin Glargine (Insulin Glargine, Human 1 Unit/0.01 Ml) 50 unit SQ [facility] Insulin Human Lispro (Insulin Lispro 1 Unit/0.01 Ml Unit) 0 unit SQ [facility]; Protocol Last Admin: 01/23/22 08:00 Dose: Not Given Lactulose (Lactulose 20 Gm/30 Ml Oral.Iram) 10 gm PO DAILYP PRN PRN Reason: Constipation Ondansetron HCl (Ondansetron 4 Mg/2 Ml Vial) 4 mg IV Q4HP PRN; Protocol PRN Reason: Nausea And Vomiting Senna (Sennosides 1 Tablet) 2 tab PO HSP PRN PRN Reason: Constipation Sodium Chloride (0.9 % Sodium Chloride 10 Ml Syringe) 10 ml IV Q8 [facility] Last Admin: 01/23/22 05:44 Dose: 10 ml ABG Interpretation ABG results: 01/21/22 01/21/22 16:14 17:57 ABG Methemoglobin TNP 0.4 VBG pH TNP 7.52 H VBG pCO2 TNP 27.5 L VBG pO2 TNP 114.0 H VBG HCO3 TNP 21.9 L VBG Total CO2 TNP 22.7 L VBG O2 Saturation TNP 94.2 H VBG Base Excess TNP 0 A/P Narrative A/P Narrative: Assessment: 52 year old male with a history of ESRD on hemodialysis via hemodialysis central line, HTN, HLD, DM, CVA, obesity admitted for sepsis possibly secondary to a CLABSI. No evidence of pneumonia on chest x-ray, unable to obtain a urine sample to evaluate for UTI, physical exam notable for erythema around the hemodialysis central line insertion site, otherwise was not suggestive of an infectious #Resolving sepsis secondary to bacteremia #Gram-positive bacillus bacteremia #Acute hypoxic respiratory failure #Concern for CLABSI #ESRD on hemodialysis via central line #Anemia of ESRD #Diabetes mellitus #Hypertension #Hyperlipidemia #History of stroke #Obesity Plan -Continue vancomycin IV, discontinued Zosyn. -Follow all blood cultures, including those obtained at outpatient hemodialysis. -Monitor potassium level and volume status. -Oxygen segmentation, wean as able. -Lantus 50 units at bedtime and correction Humalog SSIhigh dose. -Continue home amitriptyline, Coreg. -Nephrology consulted for HD management. -Diabetic diet. -DVT ppx: Heparin SQ -Code status: DNR/DNI -Disposition: Probably home when stable. Time Spent With Patient Time: Total time spent is greater than 50% in coordination of care (as documented) at patient's floor/unit and/or counseling patient:
[2022-01-23] MEDS ORDERED: FAMOTIDINE 20 MG TABLET PO SCH ×2 (09:26→21:00)
[2022-01-23] MEDS: HEPARIN 5,000 UNIT/ML VIAL SQ SCH ×2 (09:31→21:33)
[2022-01-23] MEDS: DOCUSATE SODIUM 100 MG CAPSULE PO SCH (09:31)
[2022-01-23 10:02] LABS: Anisocytosis 1+ (None Seen); Band Neutrophils % 6 % (0-10); Eosinophils % (Manual) 3 % (0-7); Lymphocytes % 21 % (15-49); Monocytes % (Manual) 6 % (1-12); Platelet Estimate NORMAL (Normal); Polychromasia FEW (None Seen); RBC Morphology ABNORMAL (Normal); Reactive Lymphocytes 1 % (0-2); Segmented Neutrophils % 63 % (38-78)
--- NOTE | 2022-01-23 14:16 | Internal Med Progress Note ---
SUBJECTIVE Subjective Patient information: Note initiated : 01/23/22 at 2:11 pm Service Date, if different from initiated Date: [] Patient: Herman Hall 52 y/o M admitted on 01/21/22 for AMS. Chief Complaint: [] Interval history: Mr. Hall is a 52 year old male with a history of ESRD on hemodialysis via central line, diabetes mellitus, hypertension, hyperlipidemia, CVA, obesity who presented to the emergency department from hemodialysis after developing chills during hemodialysis. In the emergency department, the patient was found to have a fever and tachycardia. There is concern that the patient is septic, possibly secondary to a central line associated bloodstream infection. Hospital medicine was consulted for admission. 01/23: Patient is more alert and oriented today, afebrile overnight, blood culture growing gram-positive bacillus resembling diphtheroids. Discussed with nephrology, continue vancomycin IV, discontinued Zosyn per nephrology's recommendation. Received gentamicin IV in the ED. Increase Lantus to 50 units at bedtime. Obtain transthoracic echocardiogram. Transition to [facility] status.. 01/24 Constitutional Vitals: Vital Signs Temp Pulse Resp BP Pulse Ox O2 Del Method O2 Flow Rate 96.7 F L 106 H 17 120/79 98 2 01/23/22 13:45 01/23/22 13:45 01/23/22 12:16 01/23/22 13:45 01/23/22 12:16 01/23/22 06:47 01/23/22 06:47 Period Temp Pulse Resp BP Sys/Zelaya Pulse Ox O2 Del Method O2 Flow Rate Last 24 Hr 96.7 F-98.2 F 85-107 14-32 95-146/50-93 84-99 Nasal Cannula- Room Air 2-2 Intake and Output 01/23/22 01/23/22 01/23/22 05:59 13:59 21:59 Intake Total 360 Output Total 3000 Balance 360 -3000 Intake & Output: Intake & Output 01/23/22 01/23/22 01/23/22 05:59 13:59 21:59 Intake Total 360 Output Total 3000 Balance 360 -3000 Intake: Oral 360 Output: Hemodialysis UF 3000 Other: Stool Size Moderate Small Stool Color Brown Brown Yellow Stool Consistency Normal for Patient Liquid Formed # Bowel Movements 1 1 Exam: General: Alert, Awake, No acute Distress Eyes/N/T: EOMI, Head/Neck: neck supple, CV: RRR, No murmurs, right upper chest tunneled hemodialysis central line present. Pulm: Clear b/l, no wheezing/rhonchi/rales Abd: soft, nontender, +BS x4 Ext: no clubbing/cyanosis/. chronic appearing wound on right toe does not appear infectededema Neuro: Alert, no focal deficits, moves all extremities, Skin: warm/dry OBJ DATA Labs CBC & Chem 7: 01/23/22 05:31 01/23/22 05:31 Labs: Abnormal Lab Results 01/23/22 01/23/22 01/22/22 05:31 05:31 14:34 RBC 3.08 L Hgb 9.4 L Hct 28.8 L RDW 15.4 H MPV 10.5 H Immature Gran % (Auto) Neut % (Auto) Lymph % (Auto) Lymph # (Auto) Seg Neutrophils % Lymphocytes % Immature Gran # RBC Morphology Abnormal A Polychromasia Few A Hypochromasia Anisocytosis 1+ A VBG pH VBG pCO2 VBG pO2 VBG HCO3 VBG Total CO2 VBG O2 Saturation VBG Lactic Acid Carboxyhemoglobin Total Hemoglobin Sodium Chloride Carbon Dioxide 20 L Anion Gap 19.0 H BUN 56 H Creatinine 10.9 H* Glucose Uric Acid 9.5 H Phosphorus 7.8 H* GGT 136 H Alkaline Phosphatase 154 H Lactate Dehydrogenase 251 H Total Protein Albumin 2.8 L Globulin Albumin/Globulin Ratio 0.8 L Triglycerides 722 H Urine Protein >=300 mg/dl A Urine Occult Blood Moderate A Urine Mucus Few A 01/22/22 01/22/22 01/22/22 12:06 06:34 06:33 RBC 3.23 L Hgb 9.8 L 9.8 L Hct 29.6 L RDW 15.6 H MPV Immature Gran % (Auto) Neut % (Auto) Lymph % (Auto) Lymph # (Auto) Seg Neutrophils % 80 H Lymphocytes % 12 L Immature Gran # RBC Morphology Abnormal A Polychromasia Hypochromasia 1+ A Anisocytosis Rare A VBG pH VBG pCO2 VBG pO2 VBG HCO3 VBG Total CO2 VBG O2 Saturation VBG Lactic Acid Carboxyhemoglobin Total Hemoglobin Sodium 128 L Chloride 89 L Carbon Dioxide 21 L Anion Gap 18.0 H BUN 42 H Creatinine 9.1 H* Glucose 201 H Uric Acid Phosphorus 6.7 H* GGT 130 H Alkaline Phosphatase 161 H Lactate Dehydrogenase 254 H Total Protein 5.7 L Albumin Globulin Albumin/Globulin Ratio Triglycerides 693 H Urine Protein Urine Occult Blood Urine Mucus 01/21/22 01/21/22 01/21/22 17:57 16:15 16:15 RBC 3.73 L Hgb 11.4 L Hct 34.9 L RDW 15.5 H MPV Immature Gran % (Auto) 1.1 H Neut % (Auto) 78.3 H Lymph % (Auto) 8.8 L Lymph # (Auto) 0.64 L Seg Neutrophils % Lymphocytes % Immature Gran # 0.08 H RBC Morphology Polychromasia Hypochromasia Anisocytosis VBG pH 7.52 H VBG pCO2 27.5 L VBG pO2 114.0 H VBG HCO3 21.9 L VBG Total CO2 22.7 L VBG O2 Saturation 94.2 H VBG Lactic Acid Carboxyhemoglobin 3.4 H Total Hemoglobin 11.2 L Sodium 129 L Chloride 89 L Carbon Dioxide 17 L Anion Gap 23.0 H BUN 31 H Creatinine 7.1 H* Glucose 184 H Uric Acid Phosphorus GGT Alkaline Phosphatase 192 H Lactate Dehydrogenase Total Protein Albumin Globulin 4.1 H Albumin/Globulin Ratio 0.8 L Triglycerides Urine Protein Urine Occult Blood Urine Mucus 01/21/22 16:14 RBC Hgb Hct RDW MPV Immature Gran % (Auto) Neut % (Auto) Lymph % (Auto) Lymph # (Auto) Seg Neutrophils % Lymphocytes % Immature Gran # RBC Morphology Polychromasia Hypochromasia Anisocytosis VBG pH VBG pCO2 VBG pO2 VBG HCO3 VBG Total CO2 VBG O2 Saturation VBG Lactic Acid 3.6 H Carboxyhemoglobin Total Hemoglobin Sodium Chloride Carbon Dioxide Anion Gap BUN Creatinine Glucose Uric Acid Phosphorus GGT Alkaline Phosphatase Lactate Dehydrogenase Total Protein Albumin Globulin Albumin/Globulin Ratio Triglycerides Urine Protein Urine Occult Blood Urine Mucus Meds: Medications Acetaminophen (Acetaminophen 325 Mg Tablet) 650 mg PO Q6HP PRN; Protocol PRN Reason: Per Pain Protocol/Fever > 101 Last Admin: 01/22/22 12:46 Dose: 650 mg Hydrocodone Bitart/Acetaminophen (Hydrocodone/Apap 5/325mg Tablet) 1 tab PO Q6HP PRN; Protocol PRN Reason: Per Pain Protocol Last Admin: 01/22/22 03:54 Dose: 1 tab Amitriptyline HCl (Amitriptyline 25 Mg Tablet) 50 mg PO HS [facility] Last Admin: 01/22/22 21:06 Dose: 50 mg Aspirin (Aspirin 81 Mg Tab.Chew) 81 mg PO QDAY [facility] Atorvastatin Calcium (Atorvastatin 40 Mg Tablet) 80 mg PO HS [facility] Diagnostic Test (Pha) (Accu-Chek 1 Each Strip) 1 each FS ACHS [facility] Last Admin: 01/23/22 11:30 Dose: 1 each Docusate Sodium (Docusate Sodium 100 Mg Capsule) 100 mg PO BID [facility] Last Admin: 01/23/22 09:31 Dose: Not Given Famotidine (Famotidine 20 Mg Tablet) 10 mg PO HS [facility] Haloperidol Lactate (Haloperidol Lactate 5 Mg/Ml Vial) 5 mg IM Q4HP PRN PRN Reason: Agitation Heparin Sodium (Porcine) (Heparin 5,000 Unit/Ml Vial) 5,000 unit SQ Q12 [facility] Last Admin: 01/23/22 09:31 Dose: 5,000 unit Hydromorphone HCl (Hydromorphone 0.5 Mg/0.5 Ml Syringe) 0.5 mg IV Q4HP PRN; Protocol PRN Reason: Per Pain Protocol Last Admin: 01/22/22 03:54 Dose: 0.5 mg Insulin Glargine (Insulin Glargine, Human 1 Unit/0.01 Ml) 30 unit SQ [facility] Insulin Human Lispro (Insulin Lispro 1 Unit/0.01 Ml Unit) 0 unit SQ [facility]; Protocol Last Admin: 01/23/22 12:50 Dose: Not Given Lactulose (Lactulose 20 Gm/30 Ml Oral.Iram) 10 gm PO DAILYP PRN PRN Reason: Constipation Ondansetron HCl (Ondansetron 4 Mg/2 Ml Vial) 4 mg IV Q4HP PRN; Protocol PRN Reason: Nausea And Vomiting Senna (Sennosides 1 Tablet) 2 tab PO HSP PRN PRN Reason: Constipation Sodium Chloride (0.9 % Sodium Chloride 10 Ml Syringe) 10 ml IV Q8 [facility] Last Admin: 01/23/22 05:44 Dose: 10 ml ABG Interpretation ABG results: 01/21/22 01/21/22 16:14 17:57 ABG Methemoglobin TNP 0.4 VBG pH TNP 7.52 H VBG pCO2 TNP 27.5 L VBG pO2 TNP 114.0 H VBG HCO3 TNP 21.9 L VBG Total CO2 TNP 22.7 L VBG O2 Saturation TNP 94.2 H VBG Base Excess TNP 0 A/P Narrative A/P Narrative: A: #Sepsis secondary to bacteremia: resolving #Bacteremia (GPB): single bottle #Concern for CLABSI #ESRD on hemodialysis via central line #Anemia of ESRD: #Acute hypoxic respiratory failure: -on 2L NC #Diabetes mellitus: #HHTN/HLD: #h/o CVA #Obesity: bmi 35 Plan -Continue vancomycin IV, discontinued Zosyn. -Follow all blood cultures, including those obtained at outpatient hemodialysis. -Nephro on case, HD cath removal/replacement per Neprhology -Monitor potassium level and volume status. -Oxygen supp, wean as able. -Lantus 50 units at bedtime and SSI -Continue home amitriptyline, Coreg. -ppx: Heparin SQ Code status: DNR/DNI Time Spent With Patient Time: Total time spent is greater than 50% in coordination of care (as documented) at patient's floor/unit and/or counseling patient:
[2022-01-23 14:54] LABS: Vancomycin,Trough 11.8 ug/mL
--- NOTE | 2022-01-23 15:37 | Nephrology Progress Note ---
SUBJECTIVE Subjective Patient information: Note initiated : 01/23/22 at 3:34 pm Service Date, if different from initiated Date: [] Patient: Herman Hall 52 y/o M admitted on 01/21/22 for AMS. Chief Complaint: [fever and delirium] Principal diagnosis: Bacteremia in ESRD patinet Interval history: Patient has been afebrile for over 24 hours. Is no longer toxic appearing His catheter is in place and he underwent an uneventful dialysis today All 3 sets of blood cultures are now growing Corynebacterium species. As bolivar rameyd previously this is generally regarded as a contaminant but as this patient has a portal of entry and is growing from 3 sites by time and space it cannot be ignored. Now comes the difficult problem of replacing his dialysis catheter. His AV fistula is not ready and probably will be ready until its revised My plan would to dialyze him on Thursday. Remove the catheter after Thursday and discharge him And I will have to "coast" without dialysis until a new catheter to be placed by Dr. Bernard next week The dose of vancomycin should last him until he needs his next dose which would be when he restarts dialysis. All this is predicated on the assumption that he has no valve infection or vegetation, and that his blood cultures have turned negative. Waiting vancomycin and gentamicin level to guide future dosing 2/2 sets drawn in HD at ~11:30 on 01/21/2022 are both growing Corynebacterium Sp...so we will need catheter removed Pertinent ROS: no longer toxic Additional PMFSH (Level 3 Only): N/A Constitutional Vitals: Vital Signs Temp Pulse Resp BP Pulse Ox O2 Del Method O2 Flow Rate 35.9 C L 106 H 17 120/79 98 2 01/23/22 13:45 01/23/22 13:45 01/23/22 12:16 01/23/22 13:45 01/23/22 12:16 01/23/22 06:47 01/23/22 06:47 Period Temp Pulse Resp BP Sys/Zelaya Pulse Ox O2 Del Method O2 Flow Rate Last 24 Hr 35.9 C-36.8 C 85-107 14-29 95-146/50-93 84-99 Nasal Cannula- Nasal Cannula 2-2 Intake and Output 01/23/22 01/23/22 01/23/22 05:59 13:59 21:59 Intake Total 360 240 Output Total 3000 Balance 360 -3000 240 Intake & Output: Intake & Output 01/23/22 01/23/22 01/23/22 05:59 13:59 21:59 Intake Total 360 240 Output Total 3000 Balance 360 -3000 240 Intake: Nourishment/Supplement quantity 240 (ml) Oral 360 Output: Hemodialysis UF 3000 Other: Meal Nourishment/Supplement Stool Size Moderate Small Small Stool Color Brown Brown Brown Yellow Stool Consistency Normal for Patient Liquid Liquid Formed # Bowel Movements 1 1 1 General appearance: obese Head Head exam: Present normal inspection Eye Eye exam: Present EOMI; Absent scleral icterus ENT ENT exam: Present mucous membranes moist Neck Neck exam: Absent lymphadenopathy or meningismus Respiratory Respiratory exam: Present normal respiratory exam and rhonchi Cardiovascular Cardiovascular exam: Present +S1 and +S2; Absent gallop GI/Abdominal GI/Abdominal exam: Present normal bowel sounds and soft Extremities Exam Extremities exam: Present pedal edema; Absent calf tenderness Neurological Exam Neurological exam: Present CN II-XII intact; Absent altered (back to baseline LOC) Psychiatric Psychiatric exam: Present manic, normal affect and normal mood Skin Skin exam: Present warm A/P Assessment and plan (1) Infection due to diphtheroid bacteria: Assessment and plan: 3/3 sets of blood culture (+) Cornyebacterium species by time and space Plan: 1. Redose with Vanco 2. Remove catheter 3. Hope he can go to next week when a new catheter can be placed by Dr Bernard as an outpatient at [facility] Status: Acute Comment: As above awaiting final ID (2) ESRD on hemodialysis: Plan: Remove catheter due to bacteremia Reculture tomorrow and home Status: Chronic (3) Hyperparathyroidism due to renal insufficiency: Assessment and plan: more phosphate binder Status: Chronic Comment: PTH 150-300 range Time Spent With Patient Time: Total time spent is greater than 50% in coordination of care (as documented) at patient's floor/unit and/or counseling patient:
[2022-01-23] MEDS ORDERED: VANCOMYCIN 1,500 MG in 0.9 % SODIUM CHLORIDE 500 ML IV SCH (16:30)
--- NOTE | 2022-01-23 20:31 | Nephrology Procedure Note ---
Procedure Note Patient information: Note initiated : 01/23/22 at 8:28 pm Service Date, if different from initiated Date: [] Patient: Herman Hall 52 y/o M admitted on 01/21/22 for AMS. Chief Complaint: [] Date of procedure: 01/23/22 Pre-op diagnosis: infected HD catheter Post-op diagnosis: same Procedure Performed: IJ dialysis catheter Procedure: Removal of right IJ cuffed HD catheter Anesthesia: none Surgeon: Coleman Butts Estimated blood loss: 1 IV fluids: 0 Urine output: 0 Pathology: other (Catheter tip sent for culture and sensitivty) Condition: stable Disposition: no change
[2022-01-23] MEDS ORDERED: MELATONIN 3 MG TABLET PO PRN (20:57)
[2022-01-23] MEDS ORDERED: GEMFIBROZIL PO SCH (21:00)
[2022-01-23] MEDS ORDERED: INSULIN GLARGINE, HUMAN 1 UNIT/0.01 ML SQ SCH (21:00)
[2022-01-23] MEDS ORDERED: ATORVASTATIN 40 MG TABLET PO SCH (21:00)
[2022-01-23] MEDS ORDERED: diphenhydrAMINE 25 MG CAPSULE PO SCH (21:15)
[2022-01-23] MEDS: AMITRIPTYLINE 25 MG TABLET PO SCH (21:32)
[2022-01-24] MEDS: HYDROcodone/APAP 5/325MG TABLET PO PRN (02:18)
[2022-01-24] MEDS ORDERED: METOPROLOL TARTRATE 5 MG/5 ML VIAL IV ONE ×4 (03:11→03:49)
[2022-01-24] MEDS ORDERED: METOPROLOL TARTRATE 50 MG TABLET PO ONE (03:13)
[2022-01-24] MEDS ORDERED: METOPROLOL TARTRATE 50 MG TABLET ONE (03:43)
[2022-01-24] MEDS ORDERED: METOPROLOL TARTRATE 5 MG/5 ML VIAL IV PRN (04:09)
[2022-01-24] MEDS: 0.9 % SODIUM CHLORIDE 10 ML SYRINGE IV SCH ×2 (05:58→14:40)
[2022-01-24] MEDS ORDERED: METOPROLOL TARTRATE 5 MG/5 ML VIAL IV SCH (06:00)
--- NOTE | 2022-01-24 07:03 | EKG ---
[facility] Test Date: 2022-01-24 Pat Name: Herman Hall Department: ICU Room: 120B Gender: Male Certified Legal Investigator: : 1970 Requested By: Cayden Jane Order Number: [id number] Reading MD: Kaiden Connolly Measurements Intervals [place] Rate: 158 P: [place]: QRS: 78 QRSD: 102 T: -37 QT: 291 QTc: 472 Interpretive Statements Atrial fibrillation with RVR Probable LVH with secondary repol abnrm ST depression, probably rate related Electronically Signed On 01-24-2022 7:03:14 PDT by Kaiden Connolly /store/[email or web address]/[id number]
[2022-01-24 07:04] LABS: Hematocrit 33.6 % (40.1-51.0); Hemoglobin 10.9 g/dL (13.7-17.5); Mean Cell Volume 93.1 fL (80.0-100.0); Mean Corpuscular HGB Conc 32.4 g/dL (31.0-36.0); Mean Platelet Volume 10.5 fL (7.4-10.4); Platelet Count 200 K/mcL (140-440); RBC 3.61 M/mcL (4.63-6.08); Red Cell Distribution Width 15.5 % (11.5-14.5); WBC 4.1 K/mcL (4.5-11.0)
[2022-01-24 07:50] LABS: Gentamicin,Random 0.6 ug/mL (<0.3); Vancomycin,Random 34.3 ug/mL
--- NOTE | 2022-01-24 07:51 | Internal Med Progress Note ---
SUBJECTIVE Subjective Patient information: Note initiated : 01/24/22 at 7:37 am Service Date, if different from initiated Date: [] Patient: Herman Hall 52 y/o M admitted on 01/21/22 for AMS. Chief Complaint: [] Principal diagnosis: Bacteremia in ESRD patinet Interval history: Mr. Hall is a 52 year old male with a history of ESRD on hemodialysis via central line, diabetes mellitus, hypertension, hyperlipidemia, CVA, obesity who presented to the emergency department from hemodialysis after developing chills during hemodialysis. In the emergency department, the patient was found to have a fever and tachycardia. There is concern that the patient is septic, possibly secondary to a central line associated bloodstream infection. Hospital medicine was consulted for admission. 01/23: Patient is more alert and oriented today, afebrile overnight, blood culture growing gram-positive bacillus resembling diphtheroids. Discussed with nephrology, continue vancomycin IV, discontinued Zosyn per nephrology's recommendation. Received gentamicin IV in the ED. Increase Lantus to 50 units at bedtime. Obtain transthoracic echocardiogram. Transition to [facility] status.. 01/24 Patient feeling better. No overnight event or new complaints. HD catheter removed yesterday. Culture with corynebacterium. Patient did have a brief episode with A. fib RVR last night which responded to IV Lopressor and converted to normal sinus rhythm. No prior history of this per the patient. Patient with diarrhea and C. difficile positive. Review of Systems: denies headache/fever/chills/nausea/vomiting/chest or abdominal pain/cough/d yspnea/diarrhea. Otherwise see above. Constitutional Vitals: Vital Signs Temp Pulse Resp BP Pulse Ox O2 Del Method O2 Flow Rate 98.2 F 98 H 20 121/80 92 2 01/24/22 00:32 01/23/22 14:01 01/24/22 00:32 01/24/22 05:21 01/24/22 00:32 01/24/22 00:32 01/23/22 06:47 Period Temp Pulse Resp BP Sys/Zelaya Pulse Ox O2 Del Method O2 Flow Rate Last 24 Hr 96.7 F-98.2 F 88-107 14-26 91-164/38-133 90-100 Room Air-Room Air Intake and Output 01/23/22 01/24/22 01/24/22 21:59 05:59 13:59 Intake Total 940 440 Balance 940 440 Weight 109.406 kg Intake & Output: Intake & Output 01/23/22 01/24/22 01/24/22 21:59 05:59 13:59 Intake Total 940 440 Balance 940 440 Weight 109.406 kg Intake: Nourishment/Supplement quantity 440 (ml) IV 500 Vancomycin 1,500 mg In Sodium 500 Chloride 0.9% 500 ml @ 333.3 mls/hr IV 1630 [facility] Rx#: [id number] Oral 440 Other: Meal Dinner Percent of Meal Consumed 75% Feeding Ability Independent Nourishment/Supplement name Glucerna Stool Size Moderate Stool Color Brown Stool Consistency Soft Liquid # Bowel Movements 1 Exam: General: Alert, Awake, No acute Distress Eyes/N/T: EOMI, Head/Neck: neck supple, CV: RRR, No murmurs, Pulm: Clear b/l, no wheezing/rhonchi/rales Abd: soft, nontender, +BS x4 Ext: no clubbing/cyanosis/. chronic appearing wound on right toe does not appear infected. edema Neuro: Alert, no focal deficits, moves all extremities, Skin: warm/dry OBJ DATA Labs CBC & Chem 7: 01/24/22 05:25 01/24/22 05:25 Labs: Abnormal Lab Results 01/24/22 01/23/22 01/23/22 05:25 13:54 05:31 WBC 4.1 L RBC 3.61 L Hgb 10.9 L Hct 33.6 L RDW 15.5 H MPV 10.5 H Immature Gran % (Auto) Neut % (Auto) Lymph % (Auto) Lymph # (Auto) Seg Neutrophils % Lymphocytes % Immature Gran # RBC Morphology Polychromasia Hypochromasia Anisocytosis VBG pH VBG pCO2 VBG pO2 VBG HCO3 VBG Total CO2 VBG O2 Saturation VBG Lactic Acid Carboxyhemoglobin Total Hemoglobin Sodium Chloride Carbon Dioxide 20 L Anion Gap 19.0 H BUN 56 H Creatinine 10.9 H* Glucose Uric Acid 9.5 H Phosphorus 7.8 H* GGT 136 H Alkaline Phosphatase 154 H Lactate Dehydrogenase 251 H Total Protein Albumin 2.8 L Globulin Albumin/Globulin Ratio 0.8 L Triglycerides 722 H Urine Protein Urine Occult Blood Urine Mucus Gentamicin Trough 0.4 H 01/23/22 01/22/22 01/22/22 05:31 14:34 12:06 WBC RBC 3.08 L Hgb 9.4 L 9.8 L Hct 28.8 L RDW 15.4 H MPV 10.5 H Immature Gran % (Auto) Neut % (Auto) Lymph % (Auto) Lymph # (Auto) Seg Neutrophils % Lymphocytes % Immature Gran # RBC Morphology Abnormal A Polychromasia Few A Hypochromasia Anisocytosis 1+ A VBG pH VBG pCO2 VBG pO2 VBG HCO3 VBG Total CO2 VBG O2 Saturation VBG Lactic Acid Carboxyhemoglobin Total Hemoglobin Sodium Chloride Carbon Dioxide Anion Gap BUN Creatinine Glucose Uric Acid Phosphorus GGT Alkaline Phosphatase Lactate Dehydrogenase Total Protein Albumin Globulin Albumin/Globulin Ratio Triglycerides Urine Protein >=300 mg/dl A Urine Occult Blood Moderate A Urine Mucus Few A Gentamicin Trough 01/22/22 01/22/22 01/21/22 06:34 06:33 17:57 WBC RBC 3.23 L Hgb 9.8 L Hct 29.6 L RDW 15.6 H MPV Immature Gran % (Auto) Neut % (Auto) Lymph % (Auto) Lymph # (Auto) Seg Neutrophils % 80 H Lymphocytes % 12 L Immature Gran # RBC Morphology Abnormal A Polychromasia Hypochromasia 1+ A Anisocytosis Rare A VBG pH 7.52 H VBG pCO2 27.5 L VBG pO2 114.0 H VBG HCO3 21.9 L VBG Total CO2 22.7 L VBG O2 Saturation 94.2 H VBG Lactic Acid Carboxyhemoglobin 3.4 H Total Hemoglobin 11.2 L Sodium 128 L Chloride 89 L Carbon Dioxide 21 L Anion Gap 18.0 H BUN 42 H Creatinine 9.1 H* Glucose 201 H Uric Acid Phosphorus 6.7 H* GGT 130 H Alkaline Phosphatase 161 H Lactate Dehydrogenase 254 H Total Protein 5.7 L Albumin Globulin Albumin/Globulin Ratio Triglycerides 693 H Urine Protein Urine Occult Blood Urine Mucus Gentamicin Trough 01/21/22 01/21/22 01/21/22 16:15 16:15 16:14 WBC RBC 3.73 L Hgb 11.4 L Hct 34.9 L RDW 15.5 H MPV Immature Gran % (Auto) 1.1 H Neut % (Auto) 78.3 H Lymph % (Auto) 8.8 L Lymph # (Auto) 0.64 L Seg Neutrophils % Lymphocytes % Immature Gran # 0.08 H RBC Morphology Polychromasia Hypochromasia Anisocytosis VBG pH VBG pCO2 VBG pO2 VBG HCO3 VBG Total CO2 VBG O2 Saturation VBG Lactic Acid 3.6 H Carboxyhemoglobin Total Hemoglobin Sodium 129 L Chloride 89 L Carbon Dioxide 17 L Anion Gap 23.0 H BUN 31 H Creatinine 7.1 H* Glucose 184 H Uric Acid Phosphorus GGT Alkaline Phosphatase 192 H Lactate Dehydrogenase Total Protein Albumin Globulin 4.1 H Albumin/Globulin Ratio 0.8 L Triglycerides Urine Protein Urine Occult Blood Urine Mucus Gentamicin Trough Meds: Medications Acetaminophen (Acetaminophen 325 Mg Tablet) 650 mg PO Q6HP PRN; Protocol PRN Reason: Per Pain Protocol/Fever > 101 Last Admin: 01/22/22 12:46 Dose: 650 mg Hydrocodone Bitart/Acetaminophen (Hydrocodone/Apap 5/325mg Tablet) 1 tab PO Q6HP PRN; Protocol PRN Reason: Per Pain Protocol Last Admin: 01/24/22 02:18 Dose: 1 tab Amitriptyline HCl (Amitriptyline 25 Mg Tablet) 50 mg PO HS [facility] Last Admin: 01/23/22 21:32 Dose: 50 mg Aspirin (Aspirin 81 Mg Tab.Chew) 81 mg PO QDAY [facility] Atorvastatin Calcium (Atorvastatin 40 Mg Tablet) 80 mg PO HS [facility] Last Admin: 01/23/22 21:32 Dose: 80 mg Diagnostic Test (Pha) (Accu-Chek 1 Each Strip) 1 each FS ACHS [facility] Last Admin: 01/24/22 06:55 Dose: 1 each Famotidine (Famotidine 20 Mg Tablet) 10 mg PO HS [facility] Last Admin: 01/23/22 21:31 Dose: 10 mg Haloperidol Lactate (Haloperidol Lactate 5 Mg/Ml Vial) 5 mg IM Q4HP PRN PRN Reason: Agitation Heparin Sodium (Porcine) (Heparin 5,000 Unit/Ml Vial) 5,000 unit SQ Q12 [facility] Last Admin: 01/23/22 21:33 Dose: 5,000 unit Hydromorphone HCl (Hydromorphone 0.5 Mg/0.5 Ml Syringe) 0.5 mg IV Q4HP PRN; Protocol PRN Reason: Per Pain Protocol Last Admin: 01/22/22 03:54 Dose: 0.5 mg Insulin Glargine (Insulin Glargine, Human 1 Unit/0.01 Ml) 30 unit SQ HS [facility] Last Admin: 01/23/22 21:32 Dose: 30 units Insulin Human Lispro (Insulin Lispro 1 Unit/0.01 Ml Unit) 0 unit SQ [facility]; Protocol Last Admin: 01/23/22 21:32 Dose: 9 unit Lactulose (Lactulose 20 Gm/30 Ml Oral.Iram) 10 gm PO DAILYP PRN PRN Reason: Constipation Melatonin (Melatonin 3 Mg Tablet) 3 mg PO HSP PRN PRN Reason: Insomnia Last Admin: 01/23/22 21:31 Dose: 3 mg Metoprolol Tartrate (Metoprolol Tartrate 5 Mg/5 Ml Vial) 5 mg IV Q2HP PRN PRN Reason: Tachyarrhythmias Ondansetron HCl (Ondansetron 4 Mg/2 Ml Vial) 4 mg IV Q4HP PRN; Protocol PRN Reason: Nausea And Vomiting Senna (Sennosides 1 Tablet) 2 tab PO HSP PRN PRN Reason: Constipation Sodium Chloride (0.9 % Sodium Chloride 10 Ml Syringe) 10 ml IV Q8 [facility] Last Admin: 01/24/22 05:58 Dose: 10 ml ABG Interpretation ABG results: 01/21/22 01/21/22 16:14 17:57 ABG Methemoglobin TNP 0.4 VBG pH TNP 7.52 H VBG pCO2 TNP 27.5 L VBG pO2 TNP 114.0 H VBG HCO3 TNP 21.9 L VBG Total CO2 TNP 22.7 L VBG O2 Saturation TNP 94.2 H VBG Base Excess TNP 0 A/P Narrative A/P Narrative: A: #Sepsis: 2/2 Bacteremia #Bacteremia (diphtheroid): #Concern for CLABSI: Right IJ HD cath removed (01/23) #ESRD on hemodialysis via central line #C. difficile infection: #Anemia of ESRD: #Acute hypoxic respiratory failure: -now on room air #Diabetes mellitus: #HTN/HLD: #h/o CVA #Obesity: bmi 35 #AFib RVR: brief episode o/n Plan: -Abx per Nephro -Follow up blood cultures -Nephro on case, HD cath removed, will need replaced by Dr. Bernard, timing per nephrology -Oral Vanco for C. difficile -Monitor potassium level and volume status. -Oxygen supp prn -echo pending -Lantus and SSI -Continue home amitriptyline, Coreg. -ppx: Heparin SQ / home H2 Code status: DNR/DNI Time Spent With Patient Time: Total time spent is greater than 50% in coordination of care (as documented) at patient's floor/unit and/or counseling patient: Total time spent with greater than 50% in coordination of care (as documented) at patient's floor/unit and/or counseling patient:: 25 - 35 minutes
[2022-01-24 08:03] LABS: ALT/SGPT 24 U/L (<40); AST/SGOT 22 U/L (<40); Albumin 3.7 gm/dL (3.2-5.2); Alkaline Phosphatase 208 U/L (39-117); Bilirubin,Direct < 0.2 mg/dL (0-0.3); Bilirubin,Total 0.3 mg/dL (0.1-1.0); Blood Urea Nitrogen 36 mg/dL (6-20); Carbon Dioxide 19 mmol/L (22-30); Chloride 92 mmol/L (96-108); Globulin 3.7 gm/dL (2.2-3.7); Glomerular Filtration Rate 7; Glucose 277 mg/dL (70-105); Lactate Dehydrogenase 267 U/L (135-225); Phosphorous 6.2 mg/dL (2.5-4.5); Triglycerides 1199 mg/dL (<150); Uric Acid 6.2 mg/dL (2.5-8.0)
--- NOTE | 2022-01-24 08:51 | Ultrasound Report ---
INDICATION: poorly developed AVF with urgent need for access COMPARISON: None FINDINGS: There is a left radial? artery to cephalic vein fistula. Inflow arterial velocity 185 cm/s Arterial velocity distal to anastomosis 70 cm/s. Arterial anastomosis velocity high at 609 cm/s. Outflow vein velocity 37 cm/s. IMPRESSION: Significantly elevated velocity at anastomosis site suggests anastomotic stricture Interpreted and Authenticated by: Jin Matt M.D. 01/24/22
[2022-01-24] MEDS: INSULIN LISPRO 1 UNIT/0.01 ML UNIT SQ SCH ×2 (08:52→11:56)
[2022-01-24] MEDS ORDERED: ASPIRIN 81 MG TAB.CHEW PO SCH (09:00)
[2022-01-24] MEDS: HEPARIN 5,000 UNIT/ML VIAL SQ SCH (10:20)
[2022-01-24 10:33] LABS: Anisocytosis 1+ (None Seen); Band Neutrophils % 9 % (0-10); Eosinophils % (Manual) 5 % (0-7); Lymphocytes % 32 % (15-49); Monocytes % (Manual) 9 % (1-12); Platelet Estimate NORMAL (Normal); Polychromasia OCC (None Seen); RBC Morphology ABNORMAL (Normal); Segmented Neutrophils % 45 % (38-78)
[2022-01-24] MEDS ORDERED: METOPROLOL TARTRATE 25 MG TABLET PO SCH (11:45)
--- NOTE | 2022-01-24 12:17 | Discharge Summary ---
Discharge Provider Provider IMPORTANT FOLLOW-UP INFORMATION FOR PCP: Patient information: Note initiated : 01/24/22 at 12:15 pm Service Date, if different from initiated Date: [] Patient: Herman Hall 52 y/o M admitted on 01/21/22 for AMS. Chief Complaint: [] Date of admission: 01/21/22 22:29 Discharge date: 01/24/22 Primary care physician: Delmi Carey Consults: 01/21/22 Consult to Physician [CONS] Stat Comment: Consulting Provider: Marco Ford Reason For Exam: Physician to Consult Consult to Physician [CONS] Stat Comment: Consulting Provider: Coleman Butts Reason For Exam: Physician to Consult 01/27/22 08:00 Consult to Physician [CONS] Routine Comment: Outpatient Re-placement of HD cuffed catheter Consulting Provider: Tejinder Bernard Reason For Exam: Physician to Consult COURSE Hospital Course Hospital course: Interval history: Mr. Hall is a 52 year old male with a history of ESRD on hemodialysis via central line, diabetes mellitus, hypertension, hyperlipidemia, CVA, obesity who presented to the emergency department from hemodialysis after developing chills during hemodialysis. In the emergency department, the patient was found to have a fever and tachycardia. There is concern that the patient is septic, possibly secondary to a central line associated bloodstream infection. Hospital medicine was consulted for admission. 01/23: Patient is more alert and oriented today, afebrile overnight, blood culture growing gram-positive bacillus resembling diphtheroids. Discussed with nephrology, continue vancomycin IV, discontinued Zosyn per nephrology's recommendation. Received gentamicin IV in the ED. Increase Lantus to 50 units at bedtime. Obtain transthoracic echocardiogram. Transition to [facility] status.. 01/24 Patient feeling better. No overnight event or new complaints. HD catheter removed yesterday. Culture with corynebacterium. Patient did have a brief episode with A. fib RVR last night which responded to IV Lopressor and converted to normal sinus rhythm. No prior history of this per the patient. Patient with diarrhea and C. difficile positive. A: #Sepsis: 2/2Bacteremia #Bacteremia (diphtheroid): #Concern for CLABSI: Right IJ HD cath removed (01/23) #ESRD: #C. difficile infection: #Anemia of ESRD: #Acute hypoxic respiratory failure: -now on room air #Diabetes mellitus: #HTN/HLD: #h/o CVA #Obesity: bmi 35 #AFib RVR: brief episode o/n Plan: -Random vanco on thursday per Nephrology -Nephro on case, HD cath removed, will need replaced by Dr. Bernard, timing per nephr ology -Oral Vanco for C. difficile Discharge diagnosis: Bacteremia from diphtheroid infected catheter c. diff colitis Secondary discharge diagnosis: End-stage renal disease anemia he hypoxic Respaire diabetes hypertension history stroke obesity brief episode of A. fib RVR Time Spent with Patient Time attestation: Total time spent providing and/or coordinating discharge services: Time spent: Greater than 30 minutes EXAM Constitutional Vitals: Temp Pulse Resp BP Pulse Ox O2 Del Method O2 Flow Rate 98.2 F 98 H 20 121/80 92 2 01/24/22 00:32 01/23/22 14:01 01/24/22 00:32 01/24/22 05:21 01/24/22 00:32 01/24/22 00:32 01/23/22 06:47 Discharge Data Data Completed and Pending Labs on day of discharge: Labs from last 24 hours 01/24/22 01/24/22 01/24/22 05:25 05:25 05:25 WBC 4.1 L RBC 3.61 L Hgb 10.9 L Hct 33.6 L MCV 93.1 MCH 30.2 MCHC 32.4 RDW 15.5 H Plt Count 200 MPV 10.5 H Seg Neutrophils % 45 Band Neutrophils % 9 Lymphocytes % 32 Monocytes % (Manual) 9 Eosinophils % (Manual) 5 Platelet Estimate Normal RBC Morphology Abnormal A Polychromasia Occ A Anisocytosis 1+ A Sodium 134 Potassium 3.7 Chloride 92 L Carbon Dioxide 19 L Anion Gap 23.0 H BUN 36 H Creatinine 7.9 H* GFR Calculation 7 Glucose 277 H Uric Acid 6.2 Calcium 10.0 Phosphorus 6.2 H* Magnesium 2.5 Total Bilirubin 0.3 Direct Bilirubin < 0.2 GGT 191 H AST 22 ALT 24 Alkaline Phosphatase 208 H Lactate Dehydrogenase 267 H Total Protein 7.4 Albumin 3.7 Globulin 3.7 Albumin/Globulin Ratio 1.0 Triglycerides 1199 H Gentamicin Trough Random Gentamicin 0.6 H Vancomycin Trough Random Vancomycin 34.3 01/23/22 13:54 WBC RBC Hgb Hct MCV MCH MCHC RDW Plt Count MPV Seg Neutrophils % Band Neutrophils % Lymphocytes % Monocytes % (Manual) Eosinophils % (Manual) Platelet Estimate RBC Morphology Polychromasia Anisocytosis Sodium Potassium Chloride Carbon Dioxide Anion Gap BUN Creatinine GFR Calculation Glucose Uric Acid Calcium Phosphorus Magnesium Total Bilirubin Direct Bilirubin GGT AST ALT Alkaline Phosphatase Lactate Dehydrogenase Total Protein Albumin Globulin Albumin/Globulin Ratio Triglycerides Gentamicin Trough 0.4 H Random Gentamicin Vancomycin Trough 11.8 Random Vancomycin Preliminary micro results at discharge 01/23/22 16:42 Catheter Tip Culture - Preliminary Catheter Tip - [employer]iflow Discharge Plan Patient/Caregiver Discharge Instructions Activity: increase activity as tolerated Diet: Renal/Consistent Carbs Instructions: Metoprolol (By mouth), Vancomycin (By mouth), Dialysis Diet (GEN), Basic Carbohydrate Counting (GEN), Sepsis (GEN) Prescriptions: New vancomycin 1,000 mg Recon Soln 125 mg PO QID Qty: 38 0RF metoprolol tartrate 25 mg Tablet 12.5 mg PO BID Qty: 60 0RF Continued aspirin [Adult Low Dose Aspirin] 81 mg tablet,delayed release (DR/EC) 81 mg PO QDAY Qty: 100 0RF amitriptyline 50 mg tablet 50 mg PO QHS Qty: 90 3RF lancets 1 lancet miscellaneous AC Humalog KwikPen Insulin 200 unit/mL (3 mL) insulin pen See Rx Instructions .ROUTE .COMPLEX Label Comments: Takes 1 unit per 10 over 140 blood sugar. Plus 1 unit per 50% of carb intake. Rx Instructions: Takes 1 unit per 10 over 140. Plus 50% of carb intake. gemfibrozil 150 mg PO HS ondansetron 4 mg tablet,disintegrating 4 mg PO Q8H PRN (Reason: nausea and vomiting) Qty: 14 0RF famotidine [Pepcid] 20 mg tablet 20 mg PO BID Qty: 30 0RF atorvastatin 80 mg tablet 80 mg PO HS hydroxyzine HCl 50 mg tablet 1 tab PO TIDP PRN (Reason: Itching) metoclopramide HCl 5 mg tablet 0.5 tab PO BID Rx Instructions: Take 30 minutes befroe meals Auryxia 210 mg iron tablet 2 tab PO TID Toujeo SoloStar U-300 Insulin 300 unit/mL (1.5 mL) insulin pen 140 unit subcut QHS Follow Up Plan Follow up with: Delmi Carey ARNP [Primary Care Provider] - 02/06/22 1:45 pm (Please check in at 1:30 pm) Coleman Butts MD [Physician] - (Continue with your current dialysis schedule) Patient Disposition: Home, Self-Care Prognosis: Fair Rehab Potential: Fair Discharge Orders: Discharge Order (Routine); Ordered 01/24/22 Ordered By: Cayden Jane
--- NOTE | 2022-01-24 12:59 | Nephrology Progress Note ---
SUBJECTIVE Subjective Patient information: Note initiated : 01/24/22 at 12:54 pm Service Date, if different from initiated Date: [] Patient: Herman Hall 52 y/o M admitted on 01/21/22 for AMS. Chief Complaint: [fever and delirium] Principal diagnosis: Bacteremia in ESRD patinet Interval history: Vital Signs Temp Pulse Resp BP Pulse Ox O2 Del Method 01/24/22 05:21 121/80 01/24/22 05:11 116/63 01/24/22 05:01 143/90 01/24/22 04:51 91/38 01/24/22 04:41 131/91 01/24/22 04:31 164/133 01/24/22 04:21 149/80 01/24/22 04:19 134/99 01/24/22 03:45 129/96 01/24/22 03:31 136/98 01/24/22 03:07 158/102 01/24/22 00:32 36.8 C 20 135/85 92 Room Air 01/23/22 20:00 Room Air 01/23/22 20:02 36.8 C 145/100 01/23/22 17:03 19 118/75 01/23/22 17:01 23 H 01/23/22 16:01 36.3 C 18 127/74 01/23/22 14:01 98 H 17 134/79 100 01/23/22 13:59 98 H 17 123/81 98 01/23/22 13:46 102 H 16 120/79 99 01/23/22 13:31 107 H 16 131/62 100 01/23/22 13:19 104 H 19 135/85 100 01/23/22 13:01 99 H 17 95/50 97 01/23/22 13:45 35.9 C L 106 H 120/79 01/23/22 13:43 104 H 120/79 01/23/22 13:32 105 H 131/62 01/23/22 13:20 106 H 135/85 01/23/22 12:59 98 H 95/50 01/23/22 12:56 107 H 126/71 Intake and Output 01/23/22 01/24/22 01/24/22 21:59 05:59 13:59 Intake Total 940 440 Balance 940 440 Intake: Nourishment/Supplement quantity 440 (ml) IV 500 Vancomycin 1,500 mg In Sodium 500 Chloride 0.9% 500 ml @ 333.3 mls/hr IV 1630 [facility] Rx#: [id number] Oral 440 Other: Meal Dinner Breakfast Percent of Meal Consumed 75% Refused Feeding Ability Independent Nourishment/Supplement name Glucerna Stool Size Moderate Small Stool Color Brown Brown Yellow Stool Consistency Soft Soft Liquid Liquid # Bowel Movements 1 1 Weight 109.406 kg Last HD 01/23/2022 Cuffed HD catheter remooved 01/23/2022 First 3 sets of blood cultures all growing a Corynebacterium sp. from 3 separate sites at 3 different time => endocarditis till proven otherwise. Echocardiogram interpretation with pLVEF and no vegetations. Repeat Blood cultures order / drawn this AM. Pertinent ROS: N/A Additional PMFSH (Level 3 Only): N/A Constitutional Vitals: Vital Signs Temp Pulse Resp BP Pulse Ox O2 Del Method O2 Flow Rate 36.8 C 98 H 20 121/80 92 2 01/24/22 00:32 01/23/22 14:01 01/24/22 00:32 01/24/22 05:21 01/24/22 00:32 01/24/22 00:32 01/23/22 06:47 Period Temp Pulse Resp BP Sys/Zelaya Pulse Ox O2 Del Method O2 Flow Rate Last 24 Hr 35.9 C-36.8 C 98-107 16-23 91-164/38-133 92-100 Room Air-Room Air Intake and Output 01/23/22 01/24/22 01/24/22 21:59 05:59 13:59 Intake Total 940 440 Balance 940 440 Weight 109.406 kg Intake & Output: Intake & Output 01/23/22 01/24/22 01/24/22 21:59 05:59 13:59 Intake Total 940 440 Balance 940 440 Weight 109.406 kg Intake: Nourishment/Supplement quantity 440 (ml) IV 500 Vancomycin 1,500 mg In Sodium 500 Chloride 0.9% 500 ml @ 333.3 mls/hr IV 1630 [facility] Rx#: [id number] Oral 440 Other: Meal Dinner Breakfast Percent of Meal Consumed 75% Refused Feeding Ability Independent Nourishment/Supplement name Glucerna Stool Size Moderate Small Stool Color Brown Brown Yellow Stool Consistency Soft Soft Liquid Liquid # Bowel Movements 1 1 General appearance: no acute distress and obese Exam: non-toxic Head Head exam: Present normal inspection Eye Eye exam: Present EOMI and PERRL; Absent scleral icterus ENT ENT exam: Present mucous membranes dry Neck Neck exam: Present normal inspection; Absent meningismus Respiratory Respiratory exam: Present normal respiratory exam Cardiovascular Cardiovascular exam: Present normal rate and rhythm, +S1, +S2 and systolic murmur; Absent gallop or JVD GI/Abdominal GI/Abdominal exam: Present normal bowel sounds Extremities Exam Extremities exam: Present pedal edema Neurological Exam Neurological exam: Present CN II-XII intact and oriented X3 Psychiatric Psychiatric exam: Present normal affect Skin Skin exam: Present dry A/P Assessment and plan (1) Infection due to diphtheroid bacteria: Assessment and plan: Catheter out ID and Sensitivities requested No longer toxic Vanco and gent for now Status: Acute Comment: As above awaiting final ID Per up to Date: Corynebacteria (diphtheroids) For PVE due to organisms susceptible to gentamicin (DYANA <4.0 mcg/mL), treatment consists of penicillin plus gentamicin, which will result in synergistic bactericidal activity. Gentamicin resistance precludes bactericidal synergy [55]. For gentamicin- resistant strains, treatment consists of vancomycin which is bactericidal against diphtheroids. Vancomycin is also appropriate in the setting of penicillin allergy or concern for aminoglycoside nephrotoxicity. The duration of treatment is six weeks. (2) ESRD on hemodialysis: Assessment and plan: Next HD once catheter is replaced Catheter replacement is pending results of Echo (vegitations) and a negative blood culture Status: Chronic (3) Hyperparathyroidism due to renal insufficiency: Assessment and plan: Aurixa as PO4 binder and calcitriol 3 x week Status: Chronic Comment: PTH 150-300 range (4) Hypertensive renal disease: Assessment and plan: Outpatient Rx Status: Chronic Comment: Goal blood pressure is 140/90 Metoprolol Time Spent With Patient Time: Total time spent is greater than 50% in coordination of care (as documented) at patient's floor/unit and/or counseling patient:
[2022-01-24] MEDS ORDERED: VANCOMYCIN ORAL SOL 1,000 MG/10 ML BOTTLE PO SCH (13:00)
== END 2022-01-24 14:55 | disposition home or self-care (01) | DRG 314 ==
LOC: ED 15:30 → ICU 22:29
PROVIDERS: ADMIT Internal Medicine; ATTEND Internal Medicine

== ENCOUNTER 2022-04-09 18:29 | Inpatient (IN) ==
--- NOTE | 2022-04-09 18:57 | Emergency Department Note ---
HPI General Chief complaint: Blood Sugar Problem Stated complaint: low blood sugar Time Seen by Provider: 04/09/22 18:39 Source: patient and EMS Mode of arrival: EMS Limitations: no limitations History of Present Illness HPI Narrative: Herman Hall is a 52-year-old male who presents the emergency department via amb ulance complaining of altered level of consciousness, hypoglycemia, and slurred speech. The patient remains slightly altered, oriented to self and location, but he is having trouble relating events leading up to his illness. He states he was sick a couple days ago and was vomiting, but that resolved within 24 hours. He states he really has not eaten much today, but but confirms that he took his medication. Diabetic medications are not confirmed, however the patient does have a history of type 2 diabetes. Unknown at this time if his is proceeding to the emergency department. MD Complaint: ALOC, hypoglycemia, slurred speech Related Data Home Medications Medication Instructions Recorded Confirmed lancets 1 lancet miscellaneous AC 04/26/15 01/22/22 insulin lispro 200 unit/mL (3 mL) See Rx Instructions .Route .COMPLEX 01/06/21 01/22/22 subcutaneous pen (Humalog KwikPen U-200 Insulin) gemfibrozil 150 mg PO HS 09/07/21 01/22/22 atorvastatin 80 mg tablet 80 mg PO HS 01/22/22 01/22/22 ferric citrate 210 mg iron tablet 2 tab PO TID 01/24/22 01/24/22 (Auryxia) hydroxyzine HCl 50 mg tablet 1 tab PO TIDP PRN Itching 01/24/22 01/24/22 insulin glargine U-300 conc 300 140 unit subcut QHS 01/24/22 01/24/22 unit/mL (1.5 mL) subcutaneous pen (Toujeo SoloStar U-300 Insulin) metoclopramide HCl 5 mg tablet 0.5 tab PO BID 01/24/22 01/24/22 Previous Rx's Medication Instructions Recorded aspirin 81 mg tablet,delayed 81 mg PO QDAY #100 tabs 04/03/21 release (Adult Low Dose Aspirin) famotidine 20 mg tablet (Pepcid) 20 mg PO BID #30 tabs 09/23/21 ondansetron 4 mg disintegrating 4 mg PO Q8H PRN nausea and 09/23/21 tablet vomiting #14 tabs amitriptyline 50 mg tablet 50 mg PO QHS Neuropathy #90 tabs 10/29/21 vancomycin 1,000 mg intravenous 125 mg PO QID #38 ea 01/24/22 injection cefoxitin 2 gram/50 mL in 2 g (50 mL) IV ONCE For 02/04/22 dextrose(iso-osmotic) intravenous administration post HD on Sat piggyback 02/08/22 #1 ea cefoxitin 2 gram/50 mL in 2 g (50 mL) IV ONCE Post HD on 02/04/22 dextrose(iso-osmotic) intravenous 02/06/2022 #1 ea piggyback doxazosin 4 mg tablet 4 mg PO QHS HTN #30 tabs 02/06/22 diltiazem HCl 30 mg tablet 30 mg PO TID HTN #90 tabs 02/26/22 Allergies Allergy/AdvReac Type Severity Reaction Status Date / Time No Known Drug Allergies Allergy Verified 03/11/22 16:14 Review of Systems ROS ROS Narrative: Narrative: Limitations: ROS unobtainable due to patients medical condition [facility] Narrative Patient History Narrative: Narrative: Medical/Surgical/Family History All Active Problems (Updated 04/09/22 @ 20:26 by Renee Matias PA-C) Edema (Chronic) Diabetes mellitus, type II (Chronic) Essential hypertension, benign (Chronic) Mixed hyperlipidemia (Chronic) CKD (chronic kidney disease), stage IV (Chronic) Hypertensive renal disease (Chronic) Hyperparathyroidism due to renal insufficiency (Chronic) Proteinuria (Chronic) Gout due to renal impairment (Chronic) Anemia due to stage 4 chronic kidney disease (Chronic) CKD stage G5/A3, GFR <15 and albumin creatinine ratio >300 mg/g (Chronic) CKD (chronic kidney disease) stage 5, GFR less than 15 ml/min (Chronic) Accelerated hypertension (Chronic) Nephrotic range proteinuria (Chronic) Anemia due to stage 5 chronic kidney disease treated with darbepoetin (Chronic) Iron deficiency anemia due to chronic blood loss (Acute) ESRD on peritoneal dialysis (Chronic) Diabetic peripheral neuropathy (Acute) Peritonitis associated with peritoneal dialysis (Acute) Peritonitis, spontaneous bacterial (Acute) Uncontrolled diabetes mellitus with ESRD (end-stage renal disease) (Chronic) Hypoglycemia unawareness associated with type 2 diabetes mellitus (Acute) Leg pain (Acute) Hyperglycemia (Acute) Altered mental status (Acute) Type 2 diabetes mellitus with end-stage renal disease (Acute) Hypertension due to end stage renal disease on dialysis (Chronic) Obesity (BMI 30-39.9) (Acute) Anemia in end-stage renal disease (Acute) Mixed dyslipidemia (Acute) Delirium (Acute) SBP (spontaneous bacterial peritonitis) (Acute) Hyperphosphatemia (Acute) Fall (Acute) Acute bacterial peritonitis (Acute) Fall (Acute) Acute delirium (Acute) Nausea & vomiting (Acute) Dehydration (Acute) VRE (vancomycin-resistant Enterococci) (Acute) ESRD on hemodialysis (Chronic) Diabetic toe ulcer (Acute) Fever and chills (Acute) Sepsis (Acute) Infection due to diphtheroid bacteria (Acute) Dialysis catheter clot or failure (Acute) Atypical chest pain (Acute) Hypoglycemia associated with type 2 diabetes mellitus (Acute) Pneumonia (Acute) Medical History Accelerated hypertension Refractory to beta-blockers high-dose ARB, high-dose alpha-1 antagonist and loop diuretic Did respond to minoxidil but developed side effects and doses above 5 mg twice daily Anemia due to stage 4 chronic kidney disease HgB 8-9 gm/dl so monitoring, low Fe so increased Fe replacement to 65 mg BID BP too high for SANTOS CKD (chronic kidney disease) stage 5, GFR less than 15 ml/min With nephrotic range proteinuria in the setting of diabetes and accelerated hypertension CKD (chronic kidney disease), stage IV DM +/- HTN with nonnephrotic proteinuria CKD stage G5/A3, GFR <15 and albumin creatinine ratio >300 mg/g Seems to be primarily diabetic nephropathy with hypertensive renal disease Decreased proteinuria to <3 gm/day but too little, to late Chose PD so will arrange PD catheter and training to follow Diabetes mellitus, type II Urine Prot/Cr 1.5 but GFR makes ARB therapy controversial Hemoglobin A1c 7.5% in January 2019 Edema Essential hypertension, benign Avoiding ACEi and ARB due to GFR Gout due to renal impairment Uric acid elevated on 150 mg/day allopurinol. GFR <20, lasix and metolizone likely cause Hyperparathyroidism due to renal insufficiency PTH 150-300 range Hypertensive renal disease Goal blood pressure is 140/90 Metoprolol Mixed hyperlipidemia Nephrotic range proteinuria This is gone up from 1.5 g to 4 g per 24 hours in the setting of uncontrolled hypertension He is on maximal dose losartan Proteinuria This is evidence of diabetic nephropathy Surgical History History of umbilical hernia repair (10/13/19) with mesh and laparoscopic PD catheter placement. Family History Mother Malignant neoplasm Father Coronary artery disease Diabetes mellitus Hypertension Sister Diabetes mellitus Social History Smoking Status: Never smoker Alcohol Intake Frequency: holiday/special occasion only Substance Use: does not use Exam Narrative Narrative: General: ALOC, somnolent, responsive to voice HEENT: Hematoma at occiput, EOMI, PERRL, very dry oral mucosa Chest/respirations: Symmetric chest wall expansion, expiratory wheezes without rales or rhonchi, adequate tidal volume and respiratory effort, speaks in complete paragraphs without difficulty CV: RRR/no MRG Abdomen: NABs, soft, protuberant, NT/ND, insulin pump in place, turned off) Extremities: moves all extremities, tremors noted, RLE in boot (charcot foot) Skin: Pale, tepid, dry with diaphoretic brow Neuro: oriented to self and location, slurred speech; neg arm drift Repeat BG 144. General Limitations: no limitations Course Course Course Narrative: Patient seen and evaluated by me. Given the patient's slurred speech and continued altered level of consciousness despite his blood sugar of 144, stat head CT with and without contrast is ordered, along with EKG, labs, and D5W infusion. Chest x-ray indicates left perihilar pneumonia. Head CT demonstrates no intracranial hemorrhage, however there are multiple old infarcts noted. Labs remain pending at the time of shift change. IV fluid bolus, antibiotics (IV Rocephin and azithromycin), and testing for COVID and influenza are pursued. The patient's case is discussed in detail with Dr. Jurado, who assumes care of the patient at the end of my shift. Reevaluation(s) Reevaluation #1: Patient's is in room and is updated on the patient's condition and work-up to date. She reports he has fallen several times over the past several months with multiple head CTs. She additionally states the patient has been on Augmentin due to suspected cellulitis in the right lower extremity (Charcot foot). Time: 20:17 Consultations Consultation #1: Dr Michele Reyes of the radiology service call to inform me of the patient's multiple infarcts on noncontrast head CT with lack of intracranial hemorrhage, as well as left perihilar pneumonia on chest x-ray. Given the general picture of sepsis, the patient is started on IV fluids and IV antibiotics. [place] combo SARS influenza testing is pursued. Time: 19:36 Vital Signs Vital signs: Vital Signs Temperature 96.7 F L 04/09/22 18:43 Temperature 96.7 F L 04/09/22 18:43 Pulse Rate 78 04/09/22 20:04 Respiratory Rate 13 04/09/22 20:04 Blood Pressure 176/96 04/09/22 20:04 Pulse Oximetry (%) 96 04/09/22 20:04 Oxygen Delivery Method 04/09/22 19:02 Oxygen Flow Rate (L/min) 2 04/09/22 19:02 MDM MDM Narrative Medical decision making narrative: Narrative: Sepsis Sepsis Identified: Yes Time Zero: 193 Lab Data Lab results reviewed: Yes I reviewed the patient's lab results. Result diagrams: 04/09/22 19:38 04/09/22 19:38 Labs: Lab Results 04/09/22 Range/Units 19:43 POC Hct 33.0 L (41-55) POC Sodium 140 (133-145) POC Potassium 3.9 (3.3-5.1) POC Chloride 99 (96-108) POC Total CO2 29.0 (22-30) POC BUN 43 H (6-20) POC Creatinine 11.6 H* (0.6-1.2) POC Glucose 75 (70-105) POC WB Ioniz Calcium 1.15 L (1.16-1.32) Radiology Data Radiology results reviewed: Yes I reviewed the patient's radiology results. Radiology results narrative: CXR - left perihilar PNA Noncon head CT - no intracranial hemorrhage; multipke old infarcts EKG Data EKG #1: EKG attestation: Yes I reviewed and interpreted this EKG. EKG shows normal: sinus rhythm Discharge Plan Patient/Caregiver Discharge Instructions Pt seen by OPERATIONS CONTROLLER/PA only: Yes Clinical Impression: Diabetes mellitus, type II, Hypoglycemia associated with type 2 diabetes mellitus, Pneumonia, Delirium Patient Disposition: Still a Patient Follow up with: Delmi Carey ARNP [Primary Care Provider] - Prescriptions: No Action aspirin [Adult Low Dose Aspirin] 81 mg tablet,delayed release (DR/EC) 81 mg PO QDAY Qty: 100 0RF amitriptyline 50 mg tablet 50 mg PO QHS Qty: 90 3RF cefoxitin in dextrose, iso-osm 2 gram/50 mL piggyback 2 g IV ONCE Qty: 1 0RF Rx Instructions: To be given Jan cefoxitin in dextrose, iso-osm 2 gram/50 mL piggyback 2 g IV ONCE Qty: 1 0RF Rx Instructions: Administer at end of HD Sat Feb 08, 2022 doxazosin 4 mg tablet 4 mg PO QHS Qty: 30 12RF Rx Instructions: Resart after Rx stopped in hospital diltiazem HCl 30 mg tablet 30 mg PO TID Qty: 90 0RF Rx Instructions: Replaces metoprolol to help him feel low blood sugars earlier Ship the dose immediatly before HD on TTS lancets 1 lancet miscellaneous AC Humalog KwikPen Insulin 200 unit/mL (3 mL) insulin pen See Rx Instructions .ROUTE .COMPLEX Label Comments: Takes 1 unit per 10 over 140 blood sugar. Plus 1 unit per 50% of carb intake. Rx Instructions: Takes 1 unit per 10 over 140. Plus 50% of carb intake. gemfibrozil 150 mg PO HS ondansetron 4 mg tablet,disintegrating 4 mg PO Q8H PRN (Reason: nausea and vomiting) Qty: 14 0RF famotidine [Pepcid] 20 mg tablet 20 mg PO BID Qty: 30 0RF atorvastatin 80 mg tablet 80 mg PO HS hydroxyzine HCl 50 mg tablet 1 tab PO TIDP PRN (Reason: Itching) metoclopramide HCl 5 mg tablet 0.5 tab PO BID Rx Instructions: Take 30 minutes befroe meals Auryxia 210 mg iron tablet 2 tab PO TID Toujeo SoloStar U-300 Insulin 300 unit/mL (1.5 mL) insulin pen 140 unit subcut QHS vancomycin 1,000 mg Recon Soln 125 mg PO QID Qty: 38 0RF
[2022-04-09] MEDS ORDERED: DEXTROSE 5% IN WATER 1,000 ML IV SCH (19:00)
--- NOTE | 2022-04-09 19:28 | XRay Report ---
HISTORY: Altered level of consciousness, wheezing, hypoglycemia FINDINGS: There is a mild left perihilar infiltrate. This is new since 03/11/22. The right lung is clear. The heart size is normal. There is no congestive heart failure or pleural effusion. IMPRESSION: Left perihilar pneumonia Interpreted and Authenticated by: Michele Reyes 04/09/22
[2022-04-09] MEDS ORDERED: cefTRIAXone 2 GM in DEXTROSE 5% IN WATER 50 ML IV ONE (19:46)
--- NOTE | 2022-04-09 19:46 | Cat Scan Report ---
History: Fell last night, hit head, persistent decreased level of consciousness TECHNIQUE: The brain was imaged without contrast in axial plane at 2.5 mm intervals. Radiation exposure was limited using dose reduction technology. FINDINGS: There are multiple old infarcts. Largest is located anteriorly and inferiorly in the left frontal lobe. There is encephalomalacia. Above this in the upper convexity left frontal lobe there is another cortical infarct. The frontoparietal boundary left side there is a third infarct with encephalomalacia. Small cortical infarct is present near the midline high in the right frontal lobe. There is a cluster of lacunar infarcts in the basal ganglia bilaterally. Small old peripheral infarct is seen in the posterior aspect of left cerebellar hemisphere. All of these infarcts were present on the prior head CT done on 09/06/21. No new infarct is detected. There is no intracranial hemorrhage or cerebral edema. No abnormal extra-axial fluid collection is present. There is mild generalized atrophy. The ventricles are prominent but proportionate to the atrophy. The bone windows show no skull fracture. IMPRESSION: Multiple old infarcts which have remained stable. No evidence of acute head injury Renee Matias was called with the report Interpreted and Authenticated by: Michele Reyes 04/09/22
[2022-04-09 19:48] LABS: POC Calcium, Ionized 1.15 (1.16-1.32); POC Creatinine 11.6 (0.6-1.2); POC Potassium 3.9 (3.3-5.1)
[2022-04-09] MEDS ORDERED: AZITHROMYCIN 500 MG in DEXTROSE 5% IN WATER 250 ML IV ONE (19:51)
[2022-04-09] MEDS ORDERED: 0.9 % SODIUM CHLORIDE 1,000 ML IV ONE (20:10)
[2022-04-09 21:05] LABS: Basophils # (Auto) 0.11 K/mcL (0.00-0.30); Basophils % (Auto) 0.7 % (0.0-2.0); Eosinophils % (Auto) 1.9 % (0.0-7.0); Hematocrit 33.3 % (40.1-51.0); Lymphocytes # (Auto) 1.08 K/mcL (1.50-4.80); Lymphocytes % (Auto) 6.8 % (15.5-49.0); Mean Cell Volume 92.8 fL (80.0-100.0); Mean Platelet Volume 9.3 fL (8.8-12.5); Monocytes # (Auto) 0.78 K/mcL (0.10-0.90); Monocytes % (Auto) 4.9 % (1.0-12.0); Neutrophils % (Auto) 84.9 % (38.0-78.0); Platelet Count 296 K/mcL (140-440); RBC 3.59 M/mcL (4.63-6.08); Red Cell Distribution Width 14.6 % (11.5-14.5); WBC 15.9 K/mcL (4.5-11.0)
[2022-04-09 21:34] LABS: ALT/SGPT 7 U/L (<40); AST/SGOT 9 U/L (<40); Albumin 4.2 gm/dL (3.2-5.2); Alkaline Phosphatase 203 U/L (39-117); Bilirubin,Total 0.3 mg/dL (0.1-1.0); Blood Urea Nitrogen 40 mg/dL (6-20); Calcium 10.7 mg/dL (8.6-10.4); Carbon Dioxide 29 mmol/L (22-30); Chloride 89 mmol/L (96-108); Glomerular Filtration Rate 5; Glucose 60 mg/dL (70-105)
--- NOTE | 2022-04-09 23:03 | Internal Med History&Physical ---
HPI History of Present Illness Patient information: Note initiated : 04/09/22 at 10:49 pm Service Date, if different from initiated Date: [] Patient: Herman Hall a 52 y/o M admitted on for low blood sugar. Chief Complaint: [Unresponsive] Chief complaint: Unresponsive History of present illness: Mr. Hall is a 52 year old M history of insulin-dependent type 2 diabetes mellitus with insulin pump, end-stage renal disease on hemodialysis Thursday, obesity, mixed hyperlipidemia, presenting with 1 day history of acute onset unresponsiveness. He had similar episode in the past and he is blood glucose was noted to be less than 40 at that episode. According to the at the bedside, patient's was found to be unresponsive at home at around 5:30 PM this evening. He had a insulin pump with. Glucometer and in the last reading before the onset of the episode was 130. When the checked the glucometer again, the reading was displaced is less than 20. She did not have any glucagon to give the patient so she called EMS for help. When the EMS arrived, they gave the patient dextrose infusions and repeated blood sugar was 190 but the patient was still unresponsive. As a result, patient was sent to our ED for further evaluations. Patient was started on continuous dextrose infusions. Patient's gradually regained his consciousness. Patient is currently does not have any pain or discomfort. He denies any current fusions. He is oriented x3 to person place and time. Additionally, patient stated that he had episode of vomiting yesterday and he has decreased oral intake since then. The also stated that his glucometer has been malfunctioning and out of battery for the past 10 days. She just exchanged the battery and reset the machine and now both the glucometer and the insulin pump are working properly. In addition, labs also significant for leukocytosis with WBC 15.9. Dolly negative. CT of the head showing multiple old infarcts but no acute changes. Chest x-ray showing left perihilar infiltrate suggestive of the presence of the pneumonia. Patient is on 2 L/min supplemental oxygen. Admission request was called for hypoglycemia associated with type 2 diabetes mellitus as well as pneumonia. Constitutional Constitutional: Absent chills, excessive sweating, fatigue, fever(s) or weakness EENT Eyes: Absent blurry vision, change in vision, loss of vision or other visual disturbances Ears: Absent decreased hearing or tinnitus Nose, mouth and throat: Absent abnormal hearing, dry mouth, headache(s), nasal congestion or sore throat Cardiovascular Cardiovascular: Absent chest pain, chest pain at rest, edema, irregular heart rhythm or palpatations Respiratory Respiratory: Absent cough, dyspnea or wheezing Gastrointestinal Gastrointestinal: Absent abdominal pain, constipation, diarrhea, nausea or vomiting Musculoskeletal Musculoskeletal: Absent back pain, deformity, limited range of motion, muscle cramps, muscle weakness or numbness Integumentary Integumentary: Absent lesions, rash or wounds Neurological Neurological: Absent focal weakness, headache(s) or numbness Psychiatric Psychiatric: Absent anxiety, depression or hallucinations PFSH PFSH All Active Problems (Updated 04/09/22 @ 22:57 by Rigo Chapman MD) Community acquired pneumonia (Acute) Edema (Chronic) Diabetes mellitus, type II (Chronic) Essential hypertension, benign (Chronic) Mixed hyperlipidemia (Chronic) CKD (chronic kidney disease), stage IV (Chronic) Hypertensive renal disease (Chronic) Hyperparathyroidism due to renal insufficiency (Chronic) Proteinuria (Chronic) Gout due to renal impairment (Chronic) Anemia due to stage 4 chronic kidney disease (Chronic) CKD stage G5/A3, GFR <15 and albumin creatinine ratio >300 mg/g (Chronic) CKD (chronic kidney disease) stage 5, GFR less than 15 ml/min (Chronic) Accelerated hypertension (Chronic) Nephrotic range proteinuria (Chronic) Anemia due to stage 5 chronic kidney disease treated with darbepoetin (Chronic) Iron deficiency anemia due to chronic blood loss (Acute) ESRD on peritoneal dialysis (Chronic) Diabetic peripheral neuropathy (Acute) Peritonitis associated with peritoneal dialysis (Acute) Peritonitis, spontaneous bacterial (Acute) Uncontrolled diabetes mellitus with ESRD (end-stage renal disease) (Chronic) Hypoglycemia unawareness associated with type 2 diabetes mellitus (Acute) Leg pain (Acute) Hyperglycemia (Acute) Altered mental status (Acute) Type 2 diabetes mellitus with end-stage renal disease (Acute) Hypertension due to end stage renal disease on dialysis (Chronic) Obesity (BMI 30-39.9) (Acute) Anemia in end-stage renal disease (Acute) Mixed dyslipidemia (Acute) Delirium (Acute) SBP (spontaneous bacterial peritonitis) (Acute) Hyperphosphatemia (Acute) Fall (Acute) Acute bacterial peritonitis (Acute) Fall (Acute) Acute delirium (Acute) Nausea & vomiting (Acute) Dehydration (Acute) VRE (vancomycin-resistant Enterococci) (Acute) ESRD on hemodialysis (Chronic) Diabetic toe ulcer (Acute) Fever and chills (Acute) Sepsis (Acute) Infection due to diphtheroid bacteria (Acute) Dialysis catheter clot or failure (Acute) Atypical chest pain (Acute) Hypoglycemia associated with type 2 diabetes mellitus (Acute) Pneumonia (Acute) Medical History Accelerated hypertension Refractory to beta-blockers high-dose ARB, high-dose alpha-1 antagonist and loop diuretic Did respond to minoxidil but developed side effects and doses above 5 mg twice daily Anemia due to stage 4 chronic kidney disease HgB 8-9 gm/dl so monitoring, low Fe so increased Fe replacement to 65 mg BID BP too high for SANTOS CKD (chronic kidney disease) stage 5, GFR less than 15 ml/min With nephrotic range proteinuria in the setting of diabetes and accelerated h ypertension CKD (chronic kidney disease), stage IV DM +/- HTN with nonnephrotic proteinuria CKD stage G5/A3, GFR <15 and albumin creatinine ratio >300 mg/g Seems to be primarily diabetic nephropathy with hypertensive renal disease Decreased proteinuria to <3 gm/day but too little, to late Chose PD so will arrange PD catheter and training to follow Diabetes mellitus, type II Urine Prot/Cr 1.5 but GFR makes ARB therapy controversial Hemoglobin A1c 7.5% in January 2019 Edema Essential hypertension, benign Avoiding ACEi and ARB due to GFR Gout due to renal impairment Uric acid elevated on 150 mg/day allopurinol. GFR <20, lasix and metolizone likely cause Hyperparathyroidism due to renal insufficiency PTH 150-300 range Hypertensive renal disease Goal blood pressure is 140/90 Metoprolol Mixed hyperlipidemia Nephrotic range proteinuria This is gone up from 1.5 g to 4 g per 24 hours in the setting of uncontrolled hypertension He is on maximal dose losartan Proteinuria This is evidence of diabetic nephropathy Surgical History History of umbilical hernia repair (10/13/19) with mesh and laparoscopic PD catheter placement. Family History Mother Malignant neoplasm Father Coronary artery disease Diabetes mellitus Hypertension Sister Diabetes mellitus Social History (Updated 09/28/19 @ 12:39 by Coleman Butts MD) marital status: occupational status: employed physical activity: none smoking status: Never smoker alcohol intake frequency: holiday/special occasion only substance use type: does not use MEDS/ALLERGIES Home Medications and Allergies Home Medications Medication Instructions Recorded Confirmed Type lancets 1 lancet miscellaneous AC 04/26/15 01/22/22 History insulin lispro 200 unit/mL (3 mL) See Rx Instructions .Route .COMPLEX 01/06/21 01/22/22 History subcutaneous pen (Humalog KwikPen U-200 Insulin) aspirin 81 mg tablet,delayed 81 mg PO QDAY #100 tabs 04/03/21 01/22/22 Rx release (Adult Low Dose Aspirin) gemfibrozil 150 mg PO HS 09/07/21 01/22/22 History famotidine 20 mg tablet (Pepcid) 20 mg PO BID #30 tabs 09/23/21 01/22/22 Rx ondansetron 4 mg disintegrating 4 mg PO Q8H PRN nausea and 09/23/21 01/22/22 Rx tablet vomiting #14 tabs amitriptyline 50 mg tablet 50 mg PO QHS Neuropathy #90 tabs 10/29/21 01/22/22 Rx atorvastatin 80 mg tablet 80 mg PO HS 01/22/22 01/22/22 History ferric citrate 210 mg iron tablet 2 tab PO TID 01/24/22 01/24/22 History (Auryxia) hydroxyzine HCl 50 mg tablet 1 tab PO TIDP PRN Itching 01/24/22 01/24/22 History insulin glargine U-300 conc 300 140 unit subcut QHS 01/24/22 01/24/22 History unit/mL (1.5 mL) subcutaneous pen (Toujeo SoloStar U-300 Insulin) metoclopramide HCl 5 mg tablet 0.5 tab PO BID 01/24/22 01/24/22 History vancomycin 1,000 mg intravenous 125 mg PO QID #38 ea 01/24/22 Rx injection cefoxitin 2 gram/50 mL in 2 g (50 mL) IV ONCE For 02/04/22 Rx dextrose(iso-osmotic) intravenous administration post HD on Sat piggyback 02/08/22 #1 ea cefoxitin 2 gram/50 mL in 2 g (50 mL) IV ONCE Post HD on 02/04/22 Rx dextrose(iso-osmotic) intravenous 02/06/2022 #1 ea piggyback doxazosin 4 mg tablet 4 mg PO QHS HTN #30 tabs 02/06/22 Rx diltiazem HCl 30 mg tablet 30 mg PO TID HTN #90 tabs 02/26/22 Rx Allergies Allergy/AdvReac Type Severity Reaction Status Date / Time No Known Drug Allergies Allergy Verified 03/11/22 16:14 EXAM Constitutional Vitals: Temp Pulse Resp BP Pulse Ox O2 Del Method O2 Flow Rate 35.9 C L 80 22 197/117 99 2 04/09/22 18:43 04/09/22 22:31 04/09/22 22:31 04/09/22 22:31 04/09/22 22:31 04/09/22 19:02 04/09/22 19:02 General appearance: cooperative and no acute distress Head Head exam: Present atraumatic and normocephalic Eye Eye exam: Present EOMI and PERRL ENT ENT exam: Present mucous membranes moist, normal exam and normal external ear exam Additional comments: Nasal cannula in place Neck Neck exam: Present normal inspection; Absent lymphadenopathy, tenderness or thyromegaly Respiratory Respiratory exam: Absent accessory muscle use, respiratory distress or wheezes Cardiovascular Cardiovascular exam: Present normal rate and rhythm; Absent JVD GI/Abdominal GI/Abdominal exam: Present normal bowel sounds and soft; Absent organomegaly or tenderness Additional comments: Glucometer and insulin pump in place Rectal Rectal exam: Present deferred Extremities Exam Extremities exam: Present full ROM, normal capillary refill and normal insp ection; Absent tenderness Neurological Exam Neurological exam: Present alert, CN II-XII intact and oriented X3; Absent motor sensory deficit Psychiatric Psychiatric exam: Present normal affect and normal mood; Absent anxious or depressed Skin Skin exam: Present dry and intact DATA Data Completed and Pending Labs: Labs from last 24 hours 04/09/22 04/09/22 04/09/22 19:43 19:38 19:38 WBC 15.9 H RBC 3.59 L Hgb 10.0 L Hct 33.3 L POC Hct 33.0 L MCV 92.8 MCH 27.9 MCHC 30.0 L RDW 14.6 H Plt Count 296 MPV 9.3 Immature Gran % (Auto) 0.8 H Neut % (Auto) 84.9 H Lymph % (Auto) 6.8 L Hinds % (Auto) 4.9 Eos % (Auto) 1.9 Baso % (Auto) 0.7 Lymph # (Auto) 1.08 L Hinds # (Auto) 0.78 Eos # (Auto) 0.30 Baso # (Auto) 0.11 Immature Gran # 0.13 H Absolute Neutrophils 13.45 H POC Sodium 140 Sodium 136 POC Potassium 3.9 Potassium 4.1 POC Chloride 99 Chloride 89 L Carbon Dioxide 29 POC Total CO2 29.0 Anion Gap 18.0 H POC BUN 43 H BUN 40 H Creatinine 10.4 H* POC Creatinine 11.6 H* GFR Calculation 5 Glucose 60 L POC Glucose 75 Calcium 10.7 H POC WB Ioniz Calcium 1.15 L Total Bilirubin 0.3 AST 9 ALT 7 Alkaline Phosphatase 203 H Total Protein 8.2 Albumin 4.2 Globulin 4.0 H Albumin/Globulin Ratio 1.0 A/P Assessment and plan (1) Mixed hyperlipidemia: Status: Chronic (2) Hypertensive renal disease: Status: Chronic Comment: Goal blood pressure is 140/90 Metoprolol (3) Type 2 diabetes mellitus with end-stage renal disease: Status: Acute (4) Obesity (BMI 30-39.9): Status: Acute (5) Anemia in end-stage renal disease: Status: Acute (6) Delirium: Status: Acute (7) Hypoglycemia associated with type 2 diabetes mellitus: Status: Acute (8) Community acquired pneumonia: Status: Acute Narrative A/P Narrative: Assessment and Plans: 1. Hypoglycemia associated with T2DM, with associated delirium: Inpatient PCU with telemetry CT head w/o contrast no acute pathologies HgA1c Insulin pump with built in glucometer Insulin Lispro SSI AC HS in addition Hypoglycemia protocol d/c Dextrose infusion Diabetic diet Diabetes education 2. Community acquired pneumonia: Dolly negative, CoVID PCR pending Serial lactic acid Procalcitonin Blood culture cbc w/ auto diff in the morning to trend WBC Rocephin Zithromax Supplemental oxygen therapy 3. ESRD on hemodialysis: Consult Dr. Oneil for hemodialysis needs CMP in the morning to trend kidney functions and electrolyte levels 4. Hypertension associated with ESRD: Continue Diltiazem Doxazosin Hydralazine 4mg IV q4-6hr PRN SBP>=180 and/or DBP>=110mmHg 5. Mixed dyslipidemia: Continue statin therapy 6. Anemia associated with ESRD: cbc w/ auto diff in the morning to trend H/H 7. Obesity BMI 30.0-39.9: [employer] patient on life style modifications including healthy diet and regular exercise in order to lose weight GI ppx: Pepcid DVT ppx: Heparin Code status: Full Prognosis: guarded Disposition: Inpatient PCU Time Spent With Patient Time: Total time spent is greater than 50% in coordination of care (as documented) at patient's floor/unit and/or counseling patient: Total time spent with greater than 50% in coordination of care (as documented) at patient's floor/unit and/or counseling patient:: 50 - 70 minutes
[2022-04-09] MEDS ORDERED: guaiFENesin/DEXTROMETHORPHAN ORAL SOL PO PRN (23:53)
[2022-04-09] MEDS ORDERED: SENNOSIDES 1 TABLET PO PRN (23:53)
[2022-04-09] MEDS ORDERED: LACTULOSE 20 GM/30 ML ORAL.SOL PO PRN (23:53)
[2022-04-09] MEDS ORDERED: ACETAMINOPHEN 325 MG TABLET PO PRN (23:53)
[2022-04-09] MEDS ORDERED: AZITHROMYCIN 500 MG in DEXTROSE 5% IN WATER 250 ML IV SCH (23:53)
[2022-04-09] MEDS ORDERED: DEXTROSE 50% 50 ML VIAL IV PRN (23:53)
[2022-04-09] MEDS ORDERED: IPRATROPIUM/ALBUTEROL 3 ML AMPUL.NEB NEB PRN (23:53)
[2022-04-09] MEDS ORDERED: DEXTROSE 31 GM ORAL.SUSP PO PRN (23:53)
[2022-04-09] MEDS ORDERED: cefTRIAXone 1 GM in DEXTROSE 5% IN WATER 50 ML IV SCH (23:53)
[2022-04-10] MEDS: hydrALAZINE 20 MG/ML VIAL IV PRN ×2 (00:05→09:52)
[2022-04-10] MEDS: 0.9 % SODIUM CHLORIDE 10 ML SYRINGE IV SCH ×4 (00:05→20:10)
[2022-04-10] MEDS ORDERED: hydrALAZINE 20 MG/ML VIAL ONE (00:15)
[2022-04-10] MEDS ORDERED: guaiFENesin/DEXTROMETHORPHAN ORAL SOL ONE (00:25)
[2022-04-10 07:11] LABS: Basophils # (Auto) 0.07 K/mcL (0.00-0.30); Basophils % (Auto) 0.7 % (0.0-2.0); Eosinophils # (Auto) 0.21 K/mcL (0.00-0.70); Eosinophils % (Auto) 2.2 % (0.0-7.0); Hematocrit 27.9 % (40.1-51.0); Hemoglobin 8.6 g/dL (13.7-17.5); Lymphocytes # (Auto) 1.13 K/mcL (1.50-4.80); Lymphocytes % (Auto) 11.6 % (15.5-49.0); Mean Cell Volume 91.5 fL (80.0-100.0); Mean Corpuscular HGB Conc 30.8 g/dL (31.0-36.0); Mean Platelet Volume 9.4 fL (8.8-12.5); Monocytes # (Auto) 0.56 K/mcL (0.10-0.90); Monocytes % (Auto) 5.7 % (1.0-12.0); Neutrophils % (Auto) 79.1 % (38.0-78.0); Platelet Count 256 K/mcL (140-440); RBC 3.05 M/mcL (4.63-6.08); Red Cell Distribution Width 14.7 % (11.5-14.5); WBC 9.8 K/mcL (4.5-11.0)
[2022-04-10 07:45] LABS: ALT/SGPT 8 U/L (<40); AST/SGOT 8 U/L (<40); Albumin 3.5 gm/dL (3.2-5.2); Alkaline Phosphatase 181 U/L (39-117); Bilirubin,Total 0.3 mg/dL (0.1-1.0); Blood Urea Nitrogen 46 mg/dL (6-20); Calcium 10.1 mg/dL (8.6-10.4); Carbon Dioxide 22 mmol/L (22-30); Chloride 92 mmol/L (96-108); Globulin 3.5 gm/dL (2.2-3.7); Glomerular Filtration Rate 5; Glucose 148 mg/dL (70-105)
--- NOTE | 2022-04-10 07:55 | Nephrology Consult Note ---
HPI Date of Consult Consult Date: 04/10/22 Requesting physician: Rigo Chapman Primary Care Provider: Delmi Carey Consult Narrative Patient Information: Note initiated : 04/10/22 at 7:48 am Patient: Herman Hall 52 y/o M admitted on 04/09/22 for low blood sugar. Chief Complaint: Altered mental status Herman Hall is a 52-year-old male with end stage renal disease on hemodialysis, chronic anemia due to ESRD, hypertension, diabetes mellitus type 2, history of CVA/TIA admitted on 04/09/22. He presented to [facility] ED for altered mental status with hypoglycemia. Chief complaint: Altered mental status Reason for consult: End stage renal disease cc:: CC: Rigo Chapman MD Constitutional Constitutional: Present lethargy and weakness EENT Nose, mouth and throat: Absent nasal congestion or nasal discharge Cardiovascular Cardiovascular: Absent chest pain or palpatations Respiratory Respiratory: Present cough and dyspnea Gastrointestinal Gastrointestinal: Absent nausea or vomiting Integumentary Integumentary: Absent rash or wounds Neurological Neurological: Present weakness; Absent confusion Psychiatric Psychiatric: Absent anxiety or panic attacks Hematologic/Lymphatic Hematologic/Lymphatic: Absent easy bleeding or easy bruising Allergic/Immunologic Allergic/Immunologic: Absent tongue swelling or uticaria PFSH PFSH All Active Problems (Updated 04/09/22 @ 22:57 by Rigo Chapman MD) Community acquired pneumonia (Acute) Edema (Chronic) Diabetes mellitus, type II (Chronic) Essential hypertension, benign (Chronic) Mixed hyperlipidemia (Chronic) CKD (chronic kidney disease), stage IV (Chronic) Hypertensive renal disease (Chronic) Hyperparathyroidism due to renal insufficiency (Chronic) Proteinuria (Chronic) Gout due to renal impairment (Chronic) Anemia due to stage 4 chronic kidney disease (Chronic) CKD stage G5/A3, GFR <15 and albumin creatinine ratio >300 mg/g (Chronic) CKD (chronic kidney disease) stage 5, GFR less than 15 ml/min (Chronic) Accelerated hypertension (Chronic) Nephrotic range proteinuria (Chronic) Anemia due to stage 5 chronic kidney disease treated with darbepoetin (Chronic) Iron deficiency anemia due to chronic blood loss (Acute) ESRD on peritoneal dialysis (Chronic) Diabetic peripheral neuropathy (Acute) Peritonitis associated with peritoneal dialysis (Acute) Peritonitis, spontaneous bacterial (Acute) Uncontrolled diabetes mellitus with ESRD (end-stage renal disease) (Chronic) Hypoglycemia unawareness associated with type 2 diabetes mellitus (Acute) Leg pain (Acute) Hyperglycemia (Acute) Altered mental status (Acute) Type 2 diabetes mellitus with end-stage renal disease (Acute) Hypertension due to end stage renal disease on dialysis (Chronic) Obesity (BMI 30-39.9) (Acute) Anemia in end-stage renal disease (Acute) Mixed dyslipidemia (Acute) Delirium (Acute) SBP (spontaneous bacterial peritonitis) (Acute) Hyperphosphatemia (Acute) Fall (Acute) Acute bacterial peritonitis (Acute) Fall (Acute) Acute delirium (Acute) Nausea & vomiting (Acute) Dehydration (Acute) VRE (vancomycin-resistant Enterococci) (Acute) ESRD on hemodialysis (Chronic) Diabetic toe ulcer (Acute) Fever and chills (Acute) Sepsis (Acute) Infection due to diphtheroid bacteria (Acute) Dialysis catheter clot or failure (Acute) Atypical chest pain (Acute) Hypoglycemia associated with type 2 diabetes mellitus (Acute) Pneumonia (Acute) Medical History Accelerated hypertension Refractory to beta-blockers high-dose ARB, high-dose alpha-1 antagonist and loop diuretic Did respond to minoxidil but developed side effects and doses above 5 mg twice daily Anemia due to stage 4 chronic kidney disease HgB 8-9 gm/dl so monitoring, low Fe so increased Fe replacement to 65 mg BID BP too high for SANTOS CKD (chronic kidney disease) stage 5, GFR less than 15 ml/min With nephrotic range proteinuria in the setting of diabetes and accelerated hypertension CKD (chronic kidney disease), stage IV DM +/- HTN with nonnephrotic proteinuria CKD stage G5/A3, GFR <15 and albumin creatinine ratio >300 mg/g Seems to be primarily diabetic nephropathy with hypertensive renal disease Decreased proteinuria to <3 gm/day but too little, to late Chose PD so will arrange PD catheter and training to follow Diabetes mellitus, type II Urine Prot/Cr 1.5 but GFR makes ARB therapy controversial Hemoglobin A1c 7.5% in January 2019 Edema Essential hypertension, benign Avoiding ACEi and ARB due to GFR Gout due to renal impairment Uric acid elevated on 150 mg/day allopurinol. GFR <20, lasix and metolizone likely cause Hyperparathyroidism due to renal insufficiency PTH 150-300 range Hypertensive renal disease Goal blood pressure is 140/90 Metoprolol Mixed hyperlipidemia Nephrotic range proteinuria This is gone up from 1.5 g to 4 g per 24 hours in the setting of uncontrolled hypertension He is on maximal dose losartan Proteinuria This is evidence of diabetic nephropathy Surgical History History of umbilical hernia repair (10/13/19) with mesh and laparoscopic PD catheter placement. Family History Mother Malignant neoplasm Father Coronary artery disease Diabetes mellitus Hypertension Sister Diabetes mellitus Social History (Updated 09/28/19 @ 12:39 by Coleman Butts MD) marital status: occupational status: employed physical activity: none smoking status: Never smoker alcohol intake frequency: holiday/special occasion only substance use type: does not use MEDS/ALLERGIES Home Medications and Allergies Home Medications Medication Instructions Recorded Confirmed Type lancets 1 lancet miscellaneous AC 04/26/15 04/10/22 History insulin lispro 200 unit/mL (3 mL) See Rx Instructions .Route .COMPLEX 01/06/21 04/10/22 History subcutaneous pen (Humalog KwikPen U-200 Insulin) aspirin 81 mg tablet,delayed 81 mg PO QDAY #100 tabs 04/03/21 04/10/22 Rx release (Adult Low Dose Aspirin) gemfibrozil 300 mg PO HS 09/07/21 04/10/22 History famotidine 20 mg tablet (Pepcid) 20 mg PO BID #30 tabs 09/23/21 01/22/22 Rx ondansetron 4 mg disintegrating 4 mg PO Q8H PRN nausea and 09/23/21 01/22/22 Rx tablet vomiting #14 tabs amitriptyline 50 mg tablet 50 mg PO QHS Neuropathy #90 tabs 10/29/21 04/10/22 Rx atorvastatin 80 mg tablet 80 mg PO HS 01/22/22 01/22/22 History ferric citrate 210 mg iron tablet 2 tab PO TID 01/24/22 04/10/22 History (Auryxia) hydroxyzine HCl 50 mg tablet 1 tab PO TIDP PRN Itching 01/24/22 04/10/22 History insulin glargine U-300 conc 300 140 unit subcut QHS 01/24/22 04/10/22 History unit/mL (1.5 mL) subcutaneous pen (Toujeo SoloStar U-300 Insulin) metoclopramide HCl 5 mg tablet 0.5 tab PO BID 01/24/22 04/10/22 History doxazosin 4 mg tablet 4 mg PO QHS HTN #30 tabs 02/06/22 04/10/22 Rx diltiazem HCl 30 mg tablet 30 mg PO TID HTN #90 tabs 02/26/22 Rx bupropion HCl 150 mg tablet,12 hr 1 tab PO BID 04/10/22 04/10/22 History sustained-release cephalexin 500 mg capsule 1 cap PO BID 04/10/22 04/10/22 History ferric citrate 210 mg iron tablet 2 tab PO TID 04/10/22 04/10/22 History (Auryxia) gentamicin 0.1 % topical ointment 1 ea topical QDAY 04/10/22 04/10/22 History hydrocodone 7.5 mg-acetaminophen 1 tab PO BID 04/10/22 04/10/22 History 325 mg tablet lorazepam 0.5 mg tablet 1 tab PO BID 04/10/22 04/10/22 History Allergies Allergy/AdvReac Type Severity Reaction Status Date / Time No Known Drug Allergies Allergy Verified 03/11/22 16:14 Physical Examination Vital Signs Vital signs: Temp Pulse Resp BP Pulse Ox O2 Del Method O2 Flow Rate 99.0 F 107 H 14 160/77 100 1 04/10/22 04:00 04/10/22 07:27 04/10/22 07:27 04/10/22 07:27 04/10/22 07:27 04/10/22 07:00 04/10/22 07:00 General Appearance General appearance: well-developed and well-nourished EENT EENT: mucous membranes moist Respiratory Respiratory: rales Cardiovascular Cardiology: edema, regular rate and regular rhythm Gastrointestinal Gastrointestinal: no tenderness Integumentary Integumentary: no rash Neurologic Neurologic: no focal deficit and alert and oriented x3 Psychiatric Psychiatric: mood/affect appropriate and cooperative Results Lab Results Result Diagrams: 04/10/22 05:23 04/10/22 05:23 Lab results: Most recent lab results Calcium 10.1 mg/dL (8.6-10.4) 04/10/22 05:23 A/P Assessment and plan (1) ESRD on hemodialysis: Assessment and plan: Herman Hall is a 52-year-old male with end stage renal disease on hemodialysis, chronic anemia due to ESRD, hypertension, diabetes mellitus type 2, history of CVA/TIA admitted on 04/09/22. He presented to [facility] ED for altered mental status with hypoglycemia. End stage renal disease on hemodialysis on TTS at [facility], followed by Dr. Butts. Left arm AV fistula. Chronic anemia due to ESRD and iron deficiency. Fluid overload with bilateral lower extremity edema. Acute encephalopathy with hypoglycemia, resolved. Recommendations/Plan: Hemodialysis today for 3 hours with 3 kg UF target. Status: Chronic Time Spent With Patient Time: Total time spent is greater than 50% in coordination of care (as documented) at patient's floor/unit and/or counseling patient:
[2022-04-10] MEDS: ONDANSETRON 4 MG/2 ML VIAL IV PRN ×2 (07:57→13:00)
[2022-04-10] MEDS: HEPARIN 5,000 UNIT/ML VIAL SQ SCH ×2 (08:24→20:09)
[2022-04-10] MEDS: cefTRIAXone 1 GM VIAL IV SCH (08:25)
[2022-04-10] MEDS: DOCUSATE SODIUM 100 MG CAPSULE PO SCH ×2 (08:25→20:09)
[2022-04-10] MEDS ORDERED: INSULIN LISPRO SCH (08:45)
[2022-04-10] MEDS ORDERED: FERRIC CITRATE 210 MG PO SCH (09:00)
[2022-04-10] MEDS ORDERED: hydrOXYzine 25 MG TABLET PO PRN (09:01)
[2022-04-10] MEDS: INSULIN LISPRO 1 UNIT/0.01 ML UNIT SQ SCH ×4 (09:15→20:10)
[2022-04-10] MEDS: DILTIAZEM 30 MG TABLET PO SCH ×3 (09:17→20:08)
--- NOTE | 2022-04-10 09:20 | Internal Med Progress Note ---
SUBJECTIVE Subjective Patient information: Note initiated : 04/10/22 at 9:12 am Service Date, if different from initiated Date: [] Patient: Herman Hall 52 y/o M admitted on 04/09/22 for low blood sugar. Chief Complaint: [] Interval history: Mr. Hall is a 52 year old M history of insulin-dependent type 2 diabetes mellitus with insulin pump, end-stage renal disease on hemodialysis Thursday, obesity, mixed hyperlipidemia, presenting with 1 day history of acute onset unresponsiveness. He had similar episode in the past and he is blood glucose was noted to be less than 40 at that episode. According to the at the bedside, patient's was found to be unresponsive at home at around 5:30 PM this evening. He had a insulin pump with. Glucometer and in the last reading before the onset of the episode was 130. When the checked the glucometer again, the reading was displaced is less than 20. She did not have any glucagon to give the patient so she called EMS for help. When the EMS arrived, they gave the patient dextrose infusions and repeated blood sugar was 190 but the patient was still unresponsive. As a result, patient was sent to our ED for further evaluations. Patient was started on continuous dextrose infusions. Patient's gradually regained his consciousness. Patient is currently does not have any pain or discomfort. He denies any current fusions. He is oriented x3 to person place and time. Additionally, patient stated that he had episode of vomiting yesterday and he has decreased oral intake since then. The also stated that his glucometer has been malfunctioning and out of battery for the past 10 days. She just exchanged the battery and reset the machine and now both the glucometer and the insulin pump are working properly. In addition, labs also significant for leukocytosis with WBC 15.9. Dolly negative. CT of the head showing multiple old infarcts but no acute changes. Chest x-ray showing left perihilar infiltrate suggestive of the presence of the pneumonia. Patient is on 2 L/min supplemental oxygen. Admission request was called for hypoglycemia associated with type 2 diabetes mellitus as well as pneumonia. 04/10: Fasting blood sugar 148 this morning. COVID PCR negative. Patient is currently on 1 L/min of nasal cannula oxygen's. T-max this morning of 37.3 low-grade fever. Blood culture no growth today. Patient is feeling a lot better this morning. No more hypoglycemia episode. He denies any fever, chills, or diaphoresis. He denies any shortness of breath. He is complaining of nonproductive cough. He denies any respiratory wheezings. He is complaining of nausea but denies any vomiting. His appetite is so-so. Resume insulin pump with glucose monitor. Insulin Lispro SSI AC HS. Accu Check AC HS and 2AM. Continue supplemental oxygen therapy and continue to wean off as tolerated. Continue empiric antibiotics with Rocephin and azithromycin. Hemodialysis today. Constitutional Vitals: Vital Signs Temp Pulse Resp BP Pulse Ox O2 Del Method O2 Flow Rate 37.3 C H 117 H 17 131/100 100 1 04/10/22 08:00 04/10/22 08:00 04/10/22 08:00 04/10/22 08:00 04/10/22 08:00 04/10/22 08:00 04/10/22 08:00 Period Temp Pulse Resp BP Sys/Zelaya Pulse Ox O2 Del Method O2 Flow Rate Last 24 Hr 35.9 C-37.3 C 76-117 12-27 131-207/77-166 89-100 Nasal Cannula-Nasal Cannula 1-2 Intake and Output 04/09/22 04/10/22 04/10/22 19:59 03:59 11:59 Intake Total 848 Output Total 200 Balance 848 -200 Weight 114.759 kg 112.309 kg Intake & Output: Intake & Output 04/09/22 04/10/22 04/10/22 19:59 03:59 11:59 Intake Total 848 Output Total 200 Balance 848 -200 Weight 114.759 kg 112.309 kg Intake: IV 848 Zithromax 500 mg In Dextrose 5% 250 in Water 250 ml @ 250 mls/hr IV ONCE ONE Rx#:[id number] Dextrose 5% in Water 1,000 ml @ 548 125 mls/hr IV .Q8H [facility] Rx#: [id number] Rocephin 2 gm In Dextrose 5% in 50 Water 50 ml @ 100 mls/hr IV ONCE ONE Rx#:[id number] Output: Void Amount 200 Other: Meal Nourishment/Supplement Percent of Meal Consumed 100% Nourishment/Supplement name sandwich,peaches,pears Urine Appearance Clear Urine Color Dark Yellow Head Head exam: Present atraumatic and normal inspection Eye Eye exam: Present normal appearance ENT ENT exam: Present mucous membranes moist, normal exam and normal external ear exam Additional comments: Nasal cannula in place Neck Neck exam: Present normal inspection Respiratory Respiratory exam: Present normal respiratory exam Cardiovascular Cardiovascular exam: Present tachycardia GI/Abdominal GI/Abdominal exam: Present normal bowel sounds Additional comments: Insulin pump and glucometer in place Extremities Exam Additional comments: Palpable thrill left forearm Back Exam Back exam: Present normal inspection Neurological Exam Neurological exam: Present alert and oriented X3 Skin Skin exam: Present intact and warm OBJ DATA Labs CBC & Chem 7: 04/10/22 05:23 04/10/22 05:23 Labs: Abnormal Lab Results 04/10/22 04/10/22 04/09/22 05:23 05:23 19:43 WBC RBC 3.05 L Hgb 8.6 L Hct 27.9 L POC Hct 33.0 L MCHC 30.8 L RDW 14.7 H Immature Gran % (Auto) 0.7 H Neut % (Auto) 79.1 H Lymph % (Auto) 11.6 L Lymph # (Auto) 1.13 L Immature Gran # 0.07 H Absolute Neutrophils Chloride 92 L Anion Gap 22.0 H POC BUN 43 H BUN 46 H Creatinine 10.9 H* POC Creatinine 11.6 H* Glucose 148 H Calcium POC WB Ioniz Calcium 1.15 L Alkaline Phosphatase 181 H Globulin Procalcitonin 04/09/22 04/09/22 04/09/22 19:38 19:38 19:38 WBC 15.9 H RBC 3.59 L Hgb 10.0 L Hct 33.3 L POC Hct MCHC 30.0 L RDW 14.6 H Immature Gran % (Auto) 0.8 H Neut % (Auto) 84.9 H Lymph % (Auto) 6.8 L Lymph # (Auto) 1.08 L Immature Gran # 0.13 H Absolute Neutrophils 13.45 H Chloride 89 L Anion Gap 18.0 H POC BUN BUN 40 H Creatinine 10.4 H* POC Creatinine Glucose 60 L Calcium 10.7 H POC WB Ioniz Calcium Alkaline Phosphatase 203 H Globulin 4.0 H Procalcitonin 0.54 H Meds: Medications Acetaminophen (Acetaminophen 325 Mg Tablet) 650 mg PO Q6HP PRN; Protocol PRN Reason: Per Pain Protocol/Fever > 101 Hydrocodone Bitart/Acetaminophen (Hydrocodone/Apap 7.5/325mg Tablet) 1 tab PO BID [facility] Albuterol/Ipratropium (Ipratropium/Albuterol 3 Ml Ampul.Neb) 3 ml NEB Q4HRT PRN PRN Reason: Wheezing Amitriptyline HCl (Amitriptyline 25 Mg Tablet) 50 mg PO HS [facility] Aspirin (Aspirin 81 Mg Tab.Chew) 81 mg PO DAILY [facility] Bupropion HCl (Bupropion 150 Mg Tab.Sr.12h) 150 mg PO BID [facility] Ceftriaxone Sodium (Ceftriaxone 1 Gm Vial) 1 gm IV Q24H [facility] Last Admin: 04/10/22 08:25 Dose: 1 gm Dextrose (Dextrose 50% 50 Ml Vial) 0 ml IV UD PRN PRN Reason: Per Sliding Scale Diagnostic Test (Pha) (Accu-Chek 1 Each Strip) 1 each FS ACHS [facility] Last Admin: 04/10/22 08:01 Dose: 1 each Diagnostic Test (Pha) (Accu-Chek 1 Each Strip) 1 each FS ACHS [facility] Last Admin: 04/10/22 08:01 Dose: Not Given Diltiazem HCl (Diltiazem 30 Mg Tablet) 30 mg PO TID [facility] Docusate Sodium (Docusate Sodium 100 Mg Capsule) 100 mg PO BID [facility] Last Admin: 04/10/22 08:25 Dose: 100 mg Doxazosin Mesylate (Doxazosin 4 Mg Tablet) 4 mg PO QHS [facility] Famotidine (Famotidine 20 Mg Tablet) 20 mg PO BID [facility] Gemfibrozil (Gemfibrozil 600 Mg Tablet) 300 mg PO HS [facility] Gentamicin Sulfate (Gentamicin Crm 0.1% Tube 15gm) 1 dose TOPICAL DAILY [facility] Glucose (Dextrose 31 Gm Oral.Susp) 15 gm PO PRN PRN PRN Reason: Hypoglycemia Guaifenesin (Guaifenesin/Dextromethorphan Oral Iram) 10 ml PO Q4HP PRN PRN Reason: Cough Last Admin: 04/10/22 00:28 Dose: 10 ml Heparin Sodium (Porcine) (Heparin 5,000 Unit/Ml Vial) 5,000 unit SQ Q12 [facility] Last Admin: 04/10/22 08:24 Dose: 5,000 unit Hydralazine HCl (Hydralazine 20 Mg/Ml Vial) 10 mg IV Q4-6HP PRN PRN Reason: Hypertension Last Admin: 04/10/22 00:05 Dose: 10 mg Hydroxyzine HCl (Hydroxyzine 25 Mg Tablet) 50 mg PO TIDP PRN PRN Reason: Itching Azithromycin 500 mg/ Dextrose 250 mls @ 250 mls/hr IV DAILY@1100 [facility]; Protocol Stop: 04/11/22 11:59 Insulin Human Lispro (Insulin Lispro 1 Unit/0.01 Ml Unit) 0 unit SQ ACHS [facility]; Protocol Lactulose (Lactulose 20 Gm/30 Ml Oral.Iram) 10 gm PO DAILYP PRN PRN Reason: Constipation Lorazepam (Lorazepam 0.5 Mg Tablet) 0.5 mg PO BID [facility] Non-Formulary Medication (Insulin Glargine U-300 Conc [Toujeo Solostar U-300 Ins ulin]) 140 unit SUB-Q QHS [facility] Non-Formulary Medication (Atorvastatin) 80 mg PO HS [facility] Non-Formulary Medication (Insulin Lispro [Humalog Kwikpen Insulin]) see rx instructions unit .ROUTE .COMPLEX [facility] Ondansetron HCl (Ondansetron 4 Mg/2 Ml Vial) 4 mg IV Q4HP PRN; Protocol PRN Reason: Nausea And Vomiting Last Admin: 04/10/22 07:57 Dose: 4 mg Ferric Citrate [ Auryxia] 210 Mg Iron Tablet 2 dose PO TIDCC [facility] Senna (Sennosides 1 Tablet) 2 tab PO HSP PRN PRN Reason: Constipation Sodium Chloride (0.9 % Sodium Chloride 10 Ml Syringe) 10 ml IV Q8 [facility] Last Admin: 04/10/22 04:38 Dose: 10 ml A/P Assessment and plan (1) Mixed hyperlipidemia: Status: Chronic (2) Hypertensive renal disease: Status: Chronic Comment: Goal blood pressure is 140/90 Metoprolol (3) Type 2 diabetes mellitus with end-stage renal disease: Status: Acute (4) Obesity (BMI 30-39.9): Status: Acute (5) Anemia in end-stage renal disease: Status: Acute (6) Delirium: Status: Acute (7) Hypoglycemia associated with type 2 diabetes mellitus: Status: Acute (8) Community acquired pneumonia: Status: Acute Narrative A/P Narrative: Assessment and Plans: 1. Hypoglycemia associated with T2DM, with associated delirium: Inpatient PCU with telemetry CT head w/o contrast no acute pathologies HgA1c Insulin pump with built in glucometer Insulin Lispro SSI AC HS in addition Accu Check AC HS and 2AM Hypoglycemia protocol d/c Dextrose infusion Diabetic diet Diabetes education 2. Community acquired pneumonia: Dolly negative, CoVID PCR negative Serial lactic acid 1.1 Procalcitonin 0.54 Blood culture, no growth to date cbc w/ auto diff in the morning to trend WBC Rocephin Zithromax Supplemental oxygen therapy, wean off as tolerate 3. ESRD on hemodialysis: Consult Dr. Oneil for hemodialysis needs CMP in the morning to trend kidney functions and electrolyte levels 4. Hypertension associated with ESRD: Continue Diltiazem Doxazosin Hydralazine 4mg IV q4-6hr PRN SBP>=180 and/or DBP>=110mmHg 5. Mixed dyslipidemia: Continue statin therapy 6. Anemia associated with ESRD: cbc w/ auto diff in the morning to trend H/H 7. Obesity BMI 30.0-39.9: [employer] patient on life style modifications including healthy diet and regular exercise in order to lose weight GI ppx: Pepcid DVT ppx: Heparin Code status: Full Prognosis: Stable Disposition: Inpatient PCU Time Spent With Patient Time: Total time spent is greater than 50% in coordination of care (as documented) at patient's floor/unit and/or counseling patient: Total time spent with greater than 50% in coordination of care (as documented) at patient's floor/unit and/or counseling patient:: 35 - 50 minutes QUALITY VTE Deep Vein Thrombosis/Pulmonary Embolism Present on Admission: No
[2022-04-10] MEDS ORDERED: AZITHROMYCIN 500 MG in DEXTROSE 5% IN WATER 250 ML IV SCH (11:00)
[2022-04-10] MEDS: FAMOTIDINE 20 MG TABLET PO SCH ×2 (11:08→20:08)
[2022-04-10] MEDS: LORazepam 0.5 MG TABLET PO SCH ×2 (12:41→20:09)
[2022-04-10] MEDS: HYDROCODONE/APAP 7.5/325MG TABLET PO SCH ×2 (12:41→20:08)
[2022-04-10] MEDS: buPROPion 150 MG TAB.SR.12H PO SCH ×2 (12:41→20:08)
[2022-04-10] MEDS: ASPIRIN 81 MG TAB.CHEW PO SCH (12:41)
[2022-04-10] MEDS ORDERED: ATORVASTATIN 40 MG TABLET PO SCH (21:00)
[2022-04-10] MEDS ORDERED: DOXAZOSIN 4 MG TABLET PO SCH (21:00)
[2022-04-10] MEDS ORDERED: INSULIN GLARGINE U SUB-Q SCH (21:00)
[2022-04-10] MEDS ORDERED: GEMFIBROZIL 600 MG TABLET PO SCH (21:00)
[2022-04-10] MEDS ORDERED: AMITRIPTYLINE 25 MG TABLET PO SCH (21:00)
[2022-04-11] MEDS: 0.9 % SODIUM CHLORIDE 10 ML SYRINGE IV SCH (06:02)
[2022-04-11 06:31] LABS: Basophils % (Auto) 0.7 % (0.0-2.0); Eosinophils # (Auto) 0.62 K/mcL (0.00-0.70); Eosinophils % (Auto) 4.6 % (0.0-7.0); Hematocrit 28.2 % (40.1-51.0); Hemoglobin 8.7 g/dL (13.7-17.5); Lymphocytes # (Auto) 1.21 K/mcL (1.50-4.80); Mean Corpuscular HGB Conc 30.9 g/dL (31.0-36.0); Mean Platelet Volume 9.2 fL (8.8-12.5); Monocytes # (Auto) 0.86 K/mcL (0.10-0.90); Monocytes % (Auto) 6.4 % (1.0-12.0); Neutrophils % (Auto) 78.9 % (38.0-78.0); Platelet Count 258 K/mcL (140-440); WBC 13.4 K/mcL (4.5-11.0)
[2022-04-11 07:07] LABS: ALT/SGPT 6 U/L (<40); AST/SGOT 5 U/L (<40); Albumin 3.7 gm/dL (3.2-5.2); Alkaline Phosphatase 184 U/L (39-117); Bilirubin,Total 0.3 mg/dL (0.1-1.0); Blood Urea Nitrogen 32 mg/dL (6-20); Calcium 10.5 mg/dL (8.6-10.4); Carbon Dioxide 28 mmol/L (22-30); Chloride 91 mmol/L (96-108); Globulin 3.6 gm/dL (2.2-3.7); Glomerular Filtration Rate 6; Glucose 107 mg/dL (70-105)
--- NOTE | 2022-04-11 07:27 | EKG ---
[facility] Minor Care Test Date: 2022-04-09 Pat Name: Herman Hall Department: ED Room: Gender: Male Coding Analyst: tena : 1970 Requested By: Renee Matias Order Number: [id number] Reading MD: Kaiden Connolly Measurements Intervals Tilly Rate: 81 P: 85 TX: 143 QRS: 77 QRSD: 110 T: 87 QT: 420 QTc: 488 Interpretive Statements Sinus rhythm Borderline prolonged QT interval Electronically Signed On 04-11-2022 7:27:27 PST by Kaiden Connolly /store/[email or web address]/[id number]/[id number]
[2022-04-11] MEDS: INSULIN LISPRO 1 UNIT/0.01 ML UNIT SQ SCH ×2 (07:45→11:21)
[2022-04-11] MEDS: buPROPion 150 MG TAB.SR.12H PO SCH (08:28)
[2022-04-11] MEDS: ASPIRIN 81 MG TAB.CHEW PO SCH (08:28)
[2022-04-11] MEDS: DOCUSATE SODIUM 100 MG CAPSULE PO SCH (08:28)
[2022-04-11] MEDS: HEPARIN 5,000 UNIT/ML VIAL SQ SCH (08:28)
[2022-04-11] MEDS: FAMOTIDINE 20 MG TABLET PO SCH (08:28)
[2022-04-11] MEDS: DILTIAZEM 30 MG TABLET PO SCH (08:28)
[2022-04-11] MEDS: LORazepam 0.5 MG TABLET PO SCH (08:28)
[2022-04-11] MEDS: HYDROCODONE/APAP 7.5/325MG TABLET PO SCH (08:28)
[2022-04-11] MEDS ORDERED: GENTAMICIN CRM 0.1% TUBE 15GM TOPICAL SCH (09:00)
[2022-04-11] MEDS: cefTRIAXone 1 GM VIAL IV SCH (09:43)
--- NOTE | 2022-04-11 09:58 | XRay Report ---
HISTORY: Hypoglycemia, follow-up left perihilar pneumonia FINDINGS: The lungs are clear and well expanded. The left perihilar infiltrates seen on 04/09/22 has resolved. There is no underlying mass or adenopathy. No pleural effusion is present. The heart size is normal. IMPRESSION: Normal chest. Interpreted and Authenticated by: Michele Reyes 04/11/22
[2022-04-11] MEDS ORDERED: LEVOFLOXACIN 750 MG TABLET PO ONE (10:15)
--- NOTE | 2022-04-11 11:12 | Nephrology Progress Note ---
SUBJECTIVE Subjective Patient information: Note initiated : 04/11/22 at 11:10 am Patient: Herman Hall 52 y/o M admitted on 04/09/22 for low blood sugar. Chief Complaint: Weakness Pertinent ROS: Weakness Edema Constitutional Vitals: Vital Signs Temp Pulse Resp BP Pulse Ox O2 Del Method O2 Flow Rate 97.6 F 104 H 19 140/63 96 1 04/11/22 08:01 04/11/22 10:01 04/11/22 10:01 04/11/22 10:01 04/11/22 10:01 04/11/22 07:30 04/11/22 07:00 Period Temp Pulse Resp BP Sys/Zelaya Pulse Ox O2 Del Method O2 Flow Rate Last 24 Hr 96.5 F-99.4 F 99-122 14-35 71-173/33-126 86-100 Nasal Cannula- Room Air, Nasal Cannula 1-1 Intake and Output 04/10/22 04/11/22 04/11/22 19:59 03:59 11:59 Intake Total 450 240 0 Output Total 3175 0 0 Balance -2725 240 0 Weight 241 lb 12.8 oz Intake & Output: Intake & Output 04/10/22 04/11/22 04/11/22 19:59 03:59 11:59 Intake Total 450 240 0 Output Total 3175 0 0 Balance -2725 240 0 Weight 241 lb 12.8 oz Intake: Nourishment/Supplement quantity 240 (ml) IV 250 Zithromax 500 mg In Dextrose 5% 250 in Water 250 ml @ 250 mls/hr IV DAILY@1100 [facility] Rx#:[id number] Oral 200 0 0 Output: Void Amount 175 0 0 Hemodialysis UF 3000 Other: Meal Dinner Percent of Meal Consumed 50% 0% Feeding Ability Assist with Tray Set Up Nourishment/Supplement name nepro Urine Appearance Clear Urine Color Yellow Urine Odor Normal General appearance: cooperative and no acute distress Head Head exam: Present normal inspection Eye Eye exam: Present normal appearance ENT ENT exam: Present mucous membranes moist Respiratory Respiratory exam: Absent respiratory distress Cardiovascular Cardiovascular exam: Present normal rate and rhythm GI/Abdominal GI/Abdominal exam: Present soft; Absent tenderness Extremities Exam Extremities exam: Absent joint swelling or pedal edema Neurological Exam Neurological exam: Present alert and oriented X3 Psychiatric Psychiatric exam: Present normal affect and normal mood Skin Skin exam: Present warm; Absent rash A/P Assessment and plan (1) ESRD on hemodialysis: Assessment and plan: Herman Hall is a 52-year-old male with end stage renal disease on hemodialysis, chronic anemia due to ESRD, hypertension, diabetes mellitus type 2, history of CVA/TIA admitted on 04/09/22. He presented to [facility] ED for altered mental status with hypoglycemia. End stage renal disease on hemodialysis on TTS at [facility], followed by Dr. Butts. Left arm AV fistula. Chronic anemia due to ESRD and iron deficiency. Fluid overload with bilateral lower extremity edema. Acute encephalopathy with hypoglycemia, resolved. Progress: HD on 04/10/22 with 3 kg UF. Recommendations/Plan: Hemodialysis today for 3 hours with 3 kg UF target, if staying inpatient, otherwise outpatient dialysis tomorrow. Status: Chronic Time Spent With Patient Time: Total time spent is greater than 50% in coordination of care (as documented) at patient's floor/unit and/or counseling patient:
--- NOTE | 2022-04-11 11:23 | Discharge Summary ---
Discharge Provider Provider IMPORTANT FOLLOW-UP INFORMATION FOR PCP: Patient information: Note initiated : 04/11/22 at 11:19 am Service Date, if different from initiated Date: [] Patient: Herman Hall 52 y/o M admitted on 04/09/22 for low blood sugar. Chief Complaint: [] Date of admission: 04/09/22 23:26 Discharge date: 04/11/22 Primary care physician: Delim Carey Attending physician on admission: Rigo Chapman Consults: 04/09/22 Consult to Physician [CONS] Stat Comment: Consulting Provider: Rigo Chapman Reason For Exam: Physician to Consult Consult to Physician [CONS] Stat Comment: Consulting Provider: Jose Alfredo Jurado Reason For Exam: Physician to Consult 04/09/22 23:53 Consult to Physician [CONS] Stat Comment: Consulting Provider: Jeremiah Oneil Reason For Exam: Physician to Consult Attending physician on discharge: Rigo Haque [place] COURSE Hospital Course Hospital course: Mr. Hall is a 52 year old M history of insulin-dependent type 2 diabetes mellitus with insulin pump, end-stage renal disease on hemodialysis Thursday, obesity, mixed hyperlipidemia, presenting with 1 day history of acute onset unresponsiveness. He had similar episode in the past and he is blood glucose was noted to be less than 40 at that episode. According to the at the bedside, patient's was found to be unresponsive at home at around 5:30 PM this evening. He had a insulin pump with. Glucometer and in the last reading before the onset of the episode was 130. When the checked the glucometer again, the reading was displaced is less than 20. She did not have any glucagon to give the patient so she called EMS for help. When the EMS arrived, they gave the patient dextrose infusions and repeated blood sugar was 190 but the patient was still unresponsive. As a result, patient was sent to our ED for further evaluations. Patient was started on continuous dextrose infusions. Patient's gradually regained his consciousness. Patient is currently does not have any pain or discomfort. He denies any current fusions. He is oriented x3 to person place and time. Additionally, patient stated that he had episode of vomiting yesterday and he has decreased oral intake since then. The also stated that his glucometer has been malfunctioning and out of battery for the past 10 days. She just exchanged the battery and reset the machine and now both the glucometer and the insulin pump are working properly. In addition, labs also significant for leukocytosis with WBC 15.9. Dolly negat yasmani. CT of the head showing multiple old infarcts but no acute changes. Chest x-ray showing left perihilar infiltrate suggestive of the presence of the pneumonia. Patient is on 2 L/min supplemental oxygen. Admission request was called for hypoglycemia associated with type 2 diabetes mellitus as well as pneumonia. 04/10: Fasting blood sugar 148 this morning. COVID PCR negative. Patient is currently on 1 L/min of nasal cannula oxygen's. T-max this morning of 37.3 low-grade fever. Blood culture no growth today. Patient is feeling a lot better this morning. No more hypoglycemia episode. He denies any fever, chills, or diaphoresis. He denies any shortness of breath. He is complaining of nonproductive cough. He denies any respiratory wheezings. He is complaining of nausea but denies any vomiting. His appetite is so-so. Resume insulin pump with glucose monitor. Insulin Lispro SSI AC HS. Accu Check AC HS and 2AM. Continue supplemental oxygen therapy and continue to wean off as tolerated. Continue empiric antibiotics with Rocephin and azithromycin. Hemodialysis today. 04/11: Reached clinical stability, decision made to discharge home with home oxygen. 1- 2 week PCP follow up appointment made for him. Rx sent to pharmacy. All questions were answered prior to patient being physically discharged. Discharge diagnosis: Hypoglycemia, pneumonia Time Spent with Patient Time attestation: Total time spent providing and/or coordinating discharge services: Time spent: Greater than 30 minutes EXAM Constitutional Vitals: Temp Pulse Resp BP Pulse Ox O2 Del Method O2 Flow Rate 36.4 C 104 H 19 140/63 96 1 04/11/22 08:01 04/11/22 10:01 04/11/22 10:01 04/11/22 10:01 04/11/22 10:01 04/11/22 07:30 04/11/22 07:00 General appearance: cooperative and no acute distress Head Head exam: Present atraumatic and normocephalic Eye Eye exam: Present EOMI and PERRL ENT ENT exam: Present mucous membranes moist, normal exam and normal external ear exam Additional comments: Nasal cannula in place Neck Neck exam: Present normal inspection; Absent lymphadenopathy, tenderness or thyromegaly Respiratory Respiratory exam: Absent accessory muscle use, respiratory distress or wheezes Cardiovascular Cardiovascular exam: Present normal rate and rhythm; Absent JVD GI/Abdominal GI/Abdominal exam: Present normal bowel sounds and soft; Absent organomegaly or tenderness Rectal Rectal exam: Present deferred Extremities Exam Extremities exam: Present normal capillary refill and normal inspection; Absent full ROM or tenderness Neurological Exam Neurological exam: Present alert, CN II-XII intact and oriented X3; Absent motor sensory deficit Psychiatric Psychiatric exam: Present normal affect and normal mood; Absent anxious or depressed Skin Skin exam: Present dry and intact Discharge Data Data Completed and Pending Labs on day of discharge: Labs from last 24 hours 04/11/22 04/11/22 05:12 05:12 WBC 13.4 H RBC 3.10 L Hgb 8.7 L Hct 28.2 L MCV 91.0 MCH 28.1 MCHC 30.9 L RDW 15.0 H Plt Count 258 MPV 9.2 Immature Gran % (Auto) 0.4 Neut % (Auto) 78.9 H Lymph % (Auto) 9.0 L Dent % (Auto) 6.4 Eos % (Auto) 4.6 Baso % (Auto) 0.7 Lymph # (Auto) 1.21 L Dent # (Auto) 0.86 Eos # (Auto) 0.62 Baso # (Auto) 0.10 Immature Gran # 0.06 H Absolute Neutrophils 10.55 H Sodium 136 Potassium 4.1 Chloride 91 L Carbon Dioxide 28 Anion Gap 17.0 H BUN 32 H Creatinine 8.9 H* GFR Calculation 6 Glucose 107 H Calcium 10.5 H Total Bilirubin 0.3 AST 5 ALT 6 Alkaline Phosphatase 184 H Total Protein 7.3 Albumin 3.7 Globulin 3.6 Albumin/Globulin Ratio 1.0 Preliminary micro results at discharge 04/09/22 01:05 Blood Culture - Preliminary Blood 04/09/22 01:00 Blood Culture - Preliminary Blood Discharge Plan Patient/Caregiver Discharge Instructions Activity: non-weight bearing Diet: Consistent Carbohydrate Instructions: Hypoglycemia in a Person with Diabetes (GEN), Using Oxygen at Home (GEN), Pneumonia (GEN) Prescriptions: New dextromethorphan-guaifenesin [Diabetic Tussin DM] 10-100 mg/5 mL Liquid 10 ml PO Q4HP PRN (Reason: Cough) Qty: 500 0RF levofloxacin 500 mg Tablet 500 mg PO Q48H Qty: 7 0RF Continued aspirin [Adult Low Dose Aspirin] 81 mg tablet,delayed release (DR/EC) 81 mg PO QDAY Qty: 100 0RF amitriptyline 50 mg tablet 50 mg PO QHS Qty: 90 3RF doxazosin 4 mg tablet 4 mg PO QHS Qty: 30 12RF Rx Instructions: Resart after Rx stopped in hospital diltiazem HCl 30 mg tablet 30 mg PO TID Qty: 90 0RF Rx Instructions: Replaces metoprolol to help him feel low blood sugars earlier Ship the dose immediatly before HD on TTS lancets 1 lancet miscellaneous AC Humalog KwikPen Insulin 200 unit/mL (3 mL) insulin pen See Rx Instructions .ROUTE .COMPLEX Label Comments: Takes 1 unit per 10 over 140 blood sugar. Plus 1 unit per 50% of carb intake. Rx Instructions: Takes 1 unit per 10 over 140. Plus 50% of carb intake. gemfibrozil 300 mg PO HS ondansetron 4 mg tablet,disintegrating 4 mg PO Q8H PRN (Reason: nausea and vomiting) Qty: 14 0RF atorvastatin 80 mg tablet 80 mg PO HS hydroxyzine HCl 50 mg tablet 1 tab PO TIDP PRN (Reason: Itching) metoclopramide HCl 5 mg tablet 0.5 tab PO BID Rx Instructions: Take 30 minutes befroe meals Auryxia 210 mg iron tablet 2 tab PO TID Auryxia 210 mg iron tablet 2 tab PO TID bupropion HCl 150 mg tablet sustained-release 12 hr 1 tab PO BID hydrocodone-acetaminophen 7.5-325 mg tablet 1 tab PO BID gentamicin 0.1 % ointment 1 ea topical QDAY lorazepam 0.5 mg tablet 1 tab PO BID Discontinued cephalexin 500 mg capsule 1 cap PO BID Rx Instructions: 14 day supply Follow Up Plan Follow up with: PCP, PCP [Other] Delmi Carey ARNP [Primary Care Provider] - (Please call to schedule an appointment on Thursday.) Coleman Butts MD [Physician] - (continue with your current schedule in clinic) Patient Disposition: Home, Self-Care Rehab Potential: Good I certify that the patient requires SNF services: No Overall status at discharge: patient is progressing back to baseline Discharge Orders: Discharge Order (Routine); Ordered 04/11/22 Ordered By: Rigo OLVERA VTE Deep Vein Thrombosis/Pulmonary Embolism Present on Admission: No
[2022-04-13] MEDS ORDERED: LEVOFLOXACIN 500 MG TABLET PO SCH (09:00)
== END 2022-04-11 12:20 | disposition home or self-care (01) | DRG 919 ==
LOC: ED 18:29 → ICU 23:26
PROVIDERS: ADMIT Internal Medicine; ATTEND Internal Medicine